=== PATIENT | male | born 1940 | race Caucasian/White ===

== ENCOUNTER 2019-09-01 14:35 | Inpatient (IN) | payer MEDICARE, MEDICAID ==
[2019-09-01] MEDS ORDERED: Sodium Chloride 0.9% 1,000 ML ONE (14:48)
[2019-09-01] MEDS ORDERED: Sodium Chloride 0.9% 10 ML Syringe FLUSH PRN (14:49)
[2019-09-01] MEDS ORDERED: Sodium Chloride 0.9% 1,000 ML IV SCH (15:00)
--- NOTE | 2019-09-01 15:17 | CR ---
Chest: Portable view of the chest was obtained. Comparison: Prior chest x-ray of 12/28/16. Heart size and mediastinum are within normal limits. Lungs show no acute parenchymal change. Bony structures are grossly intact. Impression: 1. Nothing acute is appreciated on portable chest x-ray. Diagnostic code #1 Study was dictated in MDT
[2019-09-01] MEDS ORDERED: Sodium Chloride 0.9% 1,000 ML IV ONE (16:27)
--- NOTE | 2019-09-01 16:46 | EDM.PDOC ---
ED HPI GENERAL MEDICAL PROBLEM - General Chief Complaint: Cardiovascular Problem Stated Complaint: [facility] Time Seen by Provider: 09/01/19 14:42 Source of Information: Reports: Patient History Limitations: Reports: No Limitations - History of Present Illness INITIAL COMMENTS - FREE TEXT/NARRATIVE: The patient presents by [facility] for hypotension. The patient was going to Dr Acevedo to have a wart on his right foot rechecked. They checked his blood pressure and it was low in the 60s systolic. EMS started an IV and gave him some fluid. He says he has not been feeling good the past few days. He does admit to drinking daily and he has not drank any alcohol for a couple of days. He is depressed. He does not think he can take care of himself at home. He is not eating or drinking much. He denies chest pain or shortness of breath. He has no abdominal pain, nausea or vomiting. He has no dysuria. He does have a history of hypertension. He also has glaucoma and macular degeneration. He says his vision is not good today. Onset: Gradual Duration: Day(s): Severity: Moderate Improves with: Reports: None Worsens with: Reports: None Associated Symptoms: Denies: Chest Pain, Cough, Fever/Chills, Headaches, Nausea/ Vomiting, Shortness of Breath Treatments LAST IRONER: Reports: Other (see below) Right Foot Pain Score (Numeric/FACES): 9 - Related Data Allergies Allergy/AdvReac Type Severity Reaction Status Date / Time No Known Allergies Allergy Verified 01/30/16 13:17 Home Meds: Home Meds Gabapentin [Neurontin] 100 mg PO BID 09/01/19 [History] Lisinopril/Hydrochlorothiazide [Lisinopril-HCTZ 10-12.5 MG] 1 tab PO DAILY 08/31 [History] Multivitamin [Multivitamins] 1 cap PO DAILY 09/01/19 [History] Sildenafil [Viagra] 100 mg PO ASDIRECTED 09/01/19 [History] Past Medical History - Past Health History Medical/Surgical History: Denies Medical/Surgical History Cardiovascular History: Reports: None, Hypertension Psychiatric History: Reports: Anxiety, Depression, Other (See Below) Other Psychiatric History: depressed as to how he lives and can't take care of self; drinks for escape; - Past Surgical History HEENT Surgical History: Reports: Other (See Below) Social & Family History - Tobacco Use Smoking Status *Q: Current Every Day Smoker Years of Tobacco use: 50 Packs/Tins Daily: 1 - Caffeine Use Caffeine Use: Reports: Coffee, Soda - Recreational Drug Use Recreational Drug Type: Reports: Cocaine, Marijuana/Hashish, Mescaline, Other ( see below) Other Recreational Drug Type: mushrooms; has not done drugs in many many years ED ROS GENERAL - Review of Systems Review Of Systems: See Below Constitutional: Reports: Malaise, Weakness, Fatigue. Denies: Fever, Chills HEENT: Reports: No Symptoms Respiratory: Reports: No Symptoms Cardiovascular: Reports: No Symptoms Endocrine: Reports: Fatigue GI/Abdominal: Reports: Anorexia. Denies: Abdominal Pain, Nausea, Vomiting : Reports: No Symptoms Musculoskeletal: Reports: No Symptoms ED EXAM, GENERAL - Physical Exam Exam: See Below Exam Limited By: No Limitations General Appearance: Alert, No Apparent Distress Ears: Normal External Exam Nose: Normal Inspection Head: Atraumatic, Normocephalic Neck: Normal Inspection Respiratory/Chest: No Respiratory Distress, Lungs Clear, Normal Breath Sounds Cardiovascular: No Edema, No Murmur, Tachycardia, Irregularly Irregular GI/Abdominal: Soft, Non-Tender, No Organomegaly, No Mass Back Exam: Normal Inspection Extremities: Normal Inspection EKG INTERPRETATION EKG Date: 09/01/19 Time: 16:48 Rhythm: A-Fib Rate (Beats/Min): 128 [place]: Normal QRS: LBBB ST-T: Normal QT: Normal Course - Vital Signs Last Recorded V/S: Last Vital Signs Temp 96.9 F 09/01/19 14:49 Pulse 83 09/01/19 14:49 Resp 13 09/01/19 14:49 BP 81/42 L 09/01/19 14:49 Pulse Ox 97 09/01/19 14:50 - Orders/Labs/Meds Orders: Active Orders 24 hr Category Date Time Status Cardiac Monitoring [RC] . DIRECTED Care 09/01/19 14:50 Active EKG Documentation Completion [RC] STAT Care 09/01/19 14:51 Active Oxygen Therapy [RC] PRN Care 09/01/19 14:50 Active Peripheral IV Care [RC] . DIRECTED Care 09/01/19 14:50 Active DRUG SCREEN, URINE [URCHEM] Stat Lab 09/01/19 17:23 Ordered UA W/MICROSCOPIC [URIN] Stat Lab 09/01/19 17:23 Ordered Lactated Ringers [Ringers, Lactated] 1,000 ml Med 09/01/19 17:45 Active IV ASDIRECTED Sodium Chloride 0.9% [Normal Saline] 1,000 ml Med 09/01/19 15:00 Active IV .BOLUS Sodium Chloride 0.9% [Saline Flush] Med 09/01/19 14:49 Active 10 ml FLUSH ASDIRECTED PRN Peripheral IV Insertion Adult [OM.PC] Stat Oth 09/01/19 14:49 Ordered Medication Orders Sodium Chloride (Normal Saline) 1,000 mls @ 1,000 mls/hr IV .BOLUS HAILEE Last Admin: 09/01/19 14:55 Dose: 1,000 mls/hr Lactated Ringer's (Ringers, Lactated) 1,000 mls @ 150 mls/hr IV ASDIRECTED HAILEE Sodium Chloride (Saline Flush) 10 ml FLUSH ASDIRECTED PRN PRN Reason: Keep Vein Open Last Admin: 09/01/19 14:59 Dose: 10 ml Labs: Laboratory Tests 09/01/19 09/01/19 Range/Units 15:10 15:10 WBC 13.40 H (4.23-9.07) K/mm3 RBC 3.91 L (4.63-6.08) M/mm3 Hgb 14.1 D (13.7-17.5) gm/dl Hct 41.7 (40.1-51.0) % MCV 106.6 H D (79.0-92.2) fl MCH 36.1 H (25.7-32.2) pg MCHC 33.8 (32.2-35.5) g/dl RDW Std Deviation 52.5 H (35.1-43.9) fL Plt Count 124 L D (163-337) K/mm3 MPV 10.1 (9.4-12.3) fl Neut % (Auto) 39.6 (34.0-67.9) % Lymph % (Auto) 49.9 (21.8-53.1) % [place] % (Auto) 9.3 (5.3-12.2) % Eos % (Auto) 0.7 L (0.8-7.0) Baso % (Auto) 0.1 (0.1-1.2) % Neut # (Auto) 5.31 (1.78-5.38) K/mm3 Lymph # (Auto) 6.69 H (1.32-3.57) K/mm3 [place] # (Auto) 1.24 H (0.30-0.82) K/mm3 Eos # (Auto) 0.09 (0.04-0.54) K/mm3 Baso # (Auto) 0.02 (0.01-0.08) K/mm3 Manual Slide Review Abnormal smear Sodium 141 (136-145) mEq/L Potassium 3.3 L (3.5-5.1) mEq/L Chloride 100 (98-107) mEq/L Carbon Dioxide 25 (21-32) mEq/L Anion Gap 19.3 H (5-15) BUN 15 (7-18) mg/dL Creatinine 1.4 H (0.7-1.3) mg/dL Est Cr Clr Drug Dosing 43.49 mL/min Estimated GFR (MDRD) 49 (>60) mL/min BUN/Creatinine Ratio 10.7 L (14-18) Glucose 126 H (83-115) mg/dL Calcium 9.5 (8.5-10.1) mg/dL Magnesium 1.8 (1.8-2.4) mg/dl Total Bilirubin 1.1 H (0.2-1.0) mg/dL AST 122 H (15-37) U/L ALT 140 H (16-63) U/L Alkaline Phosphatase 119 H (46-116) U/L Troponin I 0.032 (0.00-0.056) ng/mL Total Protein 6.2 L (6.4-8.2) g/dl Albumin 3.3 L (3.4-5.0) g/dl Globulin 2.9 gm/dL Albumin/Globulin Ratio 1.1 (1-2) Ethyl Alcohol 0.00 (0.00) gm% Meds: Medications Generic Name Dose Route Start Last Admin Trade Name Freq PRN Reason Stop Dose Admin Sodium Chloride 1,000 mls @ 1,000 mls/hr 09/01/19 15:00 09/01/19 14:55 Normal Saline IV 1,000 mls/hr .BOLUS HAILEE Administration Lactated Ringer's 1,000 mls @ 150 mls/hr 09/01/19 17:45 Ringers, Lactated IV ASDIRECTED HAILEE Sodium Chloride 10 ml 09/01/19 14:49 09/01/19 14:59 Saline Flush FLUSH 10 ml ASDIRECTED PRN Administration Keep Vein Open Discontinued Medications Generic Name Dose Route Start Last Admin Trade Name Rachelle PRN Reason Stop Dose Admin Sodium Chloride Confirm 09/01/19 14:48 09/01/19 14:54 Normal Saline Administered 09/01/19 14:49 Not Given Dose 1,000 mls @ as directed .ROUTE .STK-MED ONE Sodium Chloride 1,000 mls @ 1,000 mls/hr 09/01/19 16:27 09/01/19 16:34 Normal Saline IV 09/01/19 17:26 1,000 mls/hr ONETIME ONE Administration - Re-Assessments/Exams Free Text/Narrative Re-Assessment/Exam: 09/01/19 16:49 I ordered an IV NS bolus, labs, EKG and a CXR. His CXR shows nothing acute. His EKG shows A-fib and LBBB. 09/01/19 16:51 His WBC was elevated at 13.4. His platelets were low at 124. His K was low at 3.3. His anion gap is elevated at 19.3. His creatinine is elevated at 1.4. His AST is elevated at 122. His ALT is elevated at 140. His alk phos is elevated at 119. His troponin is negative. His ETOH is 0. 09/01/19 17:35 I feel he needs to be admitted for dehydration, A-fib with RVR. His pressure still is not good enough to try some cardizem. I gave him another liter and that did help with the rate. I will give him LR at 150ml/hr. Departure - Departure Time of Disposition: 17:40 Disposition: Admitted As Inpatient 67 Condition: Fair Clinical Impression: Dehydration, Atrial fibrillation with RVR, Elevated liver enzymes, Renal insufficiency Referrals: PCP,None [Primary Care Provider] - Forms: ED Department Discharge Sepsis Event Note - Evaluation Sepsis Screening Result: No Definite Risk - Focused Exam Vital Signs: Vital Signs Temp Pulse Resp BP Pulse Ox Pulse Ox 09/01/19 14:50 97 09/01/19 14:49 96.9 F 83 13 81/42 L 83 L Date Exam was Performed: 09/01/19 Time Exam was Performed: 17:35 - My Orders Last 24 Hours: My Active Orders 09/01/19 14:49 Sodium Chloride 0.9% [Saline Flush] 10 ml FLUSH ASDIRECTED PRN Peripheral IV Insertion Adult [OM.PC] Stat 09/01/19 14:50 Cardiac Monitoring [RC] . DIRECTED Oxygen Therapy [RC] PRN Peripheral IV Care [RC] . DIRECTED 09/01/19 14:51 EKG Documentation Completion [RC] STAT 09/01/19 15:00 Sodium Chloride 0.9% [Normal Saline] 1,000 ml IV .BOLUS 09/01/19 17:23 DRUG SCREEN, URINE [URCHEM] Stat UA W/MICROSCOPIC [URIN] Stat 09/01/19 17:45 Lactated Ringers [Ringers, Lactated] 1,000 ml IV ASDIRECTED - Assessment/Plan Last 24 Hours: My Active Orders 09/01/19 14:49 Sodium Chloride 0.9% [Saline Flush] 10 ml FLUSH ASDIRECTED PRN Peripheral IV Insertion Adult [OM.PC] Stat 09/01/19 14:50 Cardiac Monitoring [RC] . DIRECTED Oxygen Therapy [RC] PRN Peripheral IV Care [RC] . DIRECTED 09/01/19 14:51 EKG Documentation Completion [RC] STAT 09/01/19 15:00 Sodium Chloride 0.9% [Normal Saline] 1,000 ml IV .BOLUS 09/01/19 17:23 DRUG SCREEN, URINE [URCHEM] Stat UA W/MICROSCOPIC [URIN] Stat 09/01/19 17:45 Lactated Ringers [Ringers, Lactated] 1,000 ml IV ASDIRECTED
[2019-09-01] MEDS ORDERED: Lactated Ringers 1,000 ML IV SCH (17:45)
[2019-09-01] MEDS ORDERED: LORazepam 1 MG Tab PO PRN (20:39)
[2019-09-01] MEDS ORDERED: Albuterol 0.083% 2.5 MG/3 ML Neb Soln NEB PRN (20:43)
[2019-09-01] MEDS ORDERED: Acetaminophen 325 MG Tab PO PRN (20:43)
[2019-09-01] MEDS ORDERED: Diltiazem 100 MG in Sodium Chloride 0.9% 100 ML IV SCH (20:45)
--- NOTE | 2019-09-01 20:48 | PCM.HP.2 ---
H&P History of Present Illness - General Date of Service: 09/01/19 Admit Problem/Dx: Admission Diagnosis/Problem Admission Diagnosis/Problem Atrial fibrillation - History of Present Illness Initial Comments - Free Text/Narative: 79-year-old male presented to the ED via [facility] for hypertension. Patient was being seen by Dr. landeros, podiatry, to have a wart on his right foot recheck. At the appointment his blood pressure was checked and was found to be in the low 60s systolic. Patient was brought via EMS and given fluids to the emergency room. He states that he has not been eating or drinking well over the last several days. For the last 3 nights he has not been sleeping well because his heart has been beating too fast. He states usually he drinks 4 -5 beers and then a third bottle of rum to fall asleep. He has not had anything to drink in 4 to 5 days because he could not get to the liquor store. Patient states he could not walk and kept losing his balance. 3 days ago he fell, hitting his head when taking out the trash. Last night he states he took 2 of his lisinopril with hydrochlorothiazide blood pressure medications because his heart rate was going fast and he could not sleep. He figured it would help lower his heart rate. He denies any chest pain. He has had an increase in shortness of breath for the last 2 weeks. He smokes 1 pack/day for the last 60 years. He states he has been chain smoking for the last 2 weeks. He has never been diagnosed with atrial fibrillation. He has hypertension which she takes lisinopril and hydrochlorothiazide. He is on gabapentin for some unknown reason. He has had a cough, but it is only mildly productive. He is not using any inhalers. Patient states that he is depressed because he can no longer take care of himself. In the emergency room he was found to be tachycardic in atrial fibrillation. Initially blood pressure was 81/42 which improved with 2 L of fluid. EKG showed A. fib with a ventricular rate of 128 bpm. Left bundle branch block. He was not started on Cardizem in the emergency room because of his low blood pressure. He was felt to be hypovolemic with A. fib with RVR. Chest x-ray showed no acute findings. Initial labs included a white count of 13.4, hemoglobin 14.1, MCV and MCH both elevated, platelets 124, Sodium 141, potassium 3.3, BUN 15, creatinine 1.4, anion gap 19.3, total bilirubin 1.1, AST 122, ALT 140, alkaline phosphatase 119 , troponin 0 0.032, albumin 3.3, alcohol 0 and a negative urine drug screen. Right Foot Pain Score (Numeric/FACES): 9 - Related Data Allergies/Adverse Reactions: Allergies Allergy/AdvReac Type Severity Reaction Status Date / Time No Known Allergies Allergy Verified 01/30/16 13:17 Home Medications: Home Meds Gabapentin [Neurontin] 100 mg PO BID 09/01/19 [History] Lisinopril/Hydrochlorothiazide [Lisinopril-HCTZ 10-12.5 MG] 1 tab PO DAILY 08/31 [History] Multivitamin [Multivitamins] 1 cap PO DAILY 09/01/19 [History] Sildenafil [Viagra] 100 mg PO ASDIRECTED 09/01/19 [History] Past Medical History - Past Health History Medical/Surgical History: Denies Medical/Surgical History Cardiovascular History: Reports: None, Hypertension Psychiatric History: Reports: Anxiety, Depression, Other (See Below) Other Psychiatric History: depressed as to how he lives and can't take care of self; drinks for escape; - Past Surgical History HEENT Surgical History: Reports: Other (See Below) Social & Family History - Tobacco Use Smoking Status *Q: Current Every Day Smoker Years of Tobacco use: 50 Packs/Tins Daily: 1 - Caffeine Use Caffeine Use: Reports: Coffee, Soda - Recreational Drug Use Recreational Drug Type: Reports: Cocaine, Marijuana/Hashish, Mescaline, Other ( see below) Other Recreational Drug Type: mushrooms; has not done drugs in many many years H&P Review of Systems - Review of Systems: Review Of Systems: Comprehensive ROS is negative, except as noted in HPI. Exam - Exam Exam: See Below - Vital Signs Vital Signs: Last Vital Signs Temp 98.3 F 09/01/19 19:25 Pulse 83 09/01/19 14:49 Resp 17 09/01/19 19:25 BP 100/65 09/01/19 19:25 Pulse Ox 94 L 09/01/19 19:25 Weight: 164 lb 11.2 oz - Exam General: Alert, Oriented, 4 HEENT: Conjunctiva Clear, Hearing Intact, Mucosa Moist & [place], Pupils Equal, Other (Bilateral conjunctive injected with discharge right worse than left) Neck: Supple, Trachea Midline, 2 Lungs: Normal Respiratory Effort, Rhonchi, Wheezing (Throughout both lung duarte ) Cardiovascular: Irregular Rhythm, Tachycardia. No: Systolic Murmur GI/Abdominal Exam: Normal Bowel Sounds, Soft, Non-Tender, No Organomegaly, No Distention, No Abnormal Bruit, No Mass Back Exam: Normal Inspection, Full Range of Motion, NT Extremities: Normal Inspection, Normal Range of Motion, Non-Tender, No Pedal Edema, Normal Capillary Refill Skin: Warm, Dry, Intact Neurological: Cranial Nerves Intact Neuro Extensive - Motor, Sensory, Reflexes: CN II-XII Intact Psychiatric: Alert, Normal Affect, Normal Mood - Patient Data Lab Results Last 24 hrs: Laboratory Results - last 24 hr 09/01/19 09/01/19 09/01/19 Range/Units 15:10 15:10 16:30 WBC 13.40 H (4.23-9.07) K/mm3 RBC 3.91 L (4.63-6.08) M/mm3 Hgb 14.1 D (13.7-17.5) gm/dl Hct 41.7 (40.1-51.0) % MCV 106.6 H D (79.0-92.2) fl MCH 36.1 H (25.7-32.2) pg MCHC 33.8 (32.2-35.5) g/dl RDW Std Deviation 52.5 H (35.1-43.9) fL Plt Count 124 L D (163-337) K/mm3 MPV 10.1 (9.4-12.3) fl Neut % (Auto) 39.6 (34.0-67.9) % Lymph % (Auto) 49.9 (21.8-53.1) % [place] % (Auto) 9.3 (5.3-12.2) % Eos % (Auto) 0.7 L (0.8-7.0) Baso % (Auto) 0.1 (0.1-1.2) % Neut # (Auto) 5.31 (1.78-5.38) K/mm3 Lymph # (Auto) 6.69 H (1.32-3.57) K/mm3 [place] # (Auto) 1.24 H (0.30-0.82) K/mm3 Eos # (Auto) 0.09 (0.04-0.54) K/mm3 Baso # (Auto) 0.02 (0.01-0.08) K/mm3 Manual Slide Review Abnormal smear Sodium 141 (136-145) mEq/L Potassium 3.3 L (3.5-5.1) mEq/L Chloride 100 (98-107) mEq/L Carbon Dioxide 25 (21-32) mEq/L Anion Gap 19.3 H (5-15) BUN 15 (7-18) mg/dL Creatinine 1.4 H (0.7-1.3) mg/dL Est Cr Clr Drug Dosing 43.49 mL/min Estimated GFR (MDRD) 49 (>60) mL/min BUN/Creatinine Ratio 10.7 L (14-18) Glucose 126 H (83-115) mg/dL Calcium 9.5 (8.5-10.1) mg/dL Magnesium 1.8 (1.8-2.4) mg/dl Total Bilirubin 1.1 H (0.2-1.0) mg/dL AST 122 H (15-37) U/L ALT 140 H (16-63) U/L Alkaline Phosphatase 119 H (46-116) U/L Troponin I 0.032 (0.00-0.056) ng/mL Total Protein 6.2 L (6.4-8.2) g/dl Albumin 3.3 L (3.4-5.0) g/dl Globulin 2.9 gm/dL Albumin/Globulin Ratio 1.1 (1-2) Urine Color Yellow (Yellow) Urine Appearance Clear (Clear) Urine pH 7.0 (5.0-8.0) Ur Specific [place] 1.020 (1.005-1.030) Urine Protein Negative (Negative) Urine Glucose (UA) Negative (Negative) Urine Ketones Trace H (Negative) Urine Occult Blood Negative (Negative) Urine Nitrite Negative (Negative) Urine Bilirubin 1+ H (Negative) Urine Urobilinogen 1.0 (0.2-1.0) Ur Leukocyte Esterase Negative (Negative) Urine RBC 0-5 (0-5) /hpf Urine WBC 0-5 (0-5) /hpf Ur Squamous Epith Cells 0-5 (0-5) /hpf Urine Bacteria Few (FEW) /hpf Urine Mucus Few (FEW) /hpf Urine Opiates Screen (ASBDUF=821) Ur Buprenorphine Scrn (CUTOFF=10) Ur Oxycodone Screen (KIO7NM=760) Urine Methadone Screen (FLE8WY=824) Ur Propoxyphene Screen (CKHQME=105) Ur Barbiturates Screen (OFEVKL=605) Ur Tricyclics Screen (NVYQOM=027) Ur Phencyclidine Scrn (CUTOFF=25) Ur Amphetamine Screen (IETENM=269) U Methamphetamines Scrn (JEJOGE=971) U Benzodiazepines Scrn (NXFWOD=789) U Cocaine Metab Screen (LOUPOK=176) U Marijuana (THC) Screen (CUTOFF=50) Ethyl Alcohol 0.00 (0.00) gm% 09/01/19 Range/Units 16:30 WBC (4.23-9.07) K/mm3 RBC (4.63-6.08) M/mm3 Hgb (13.7-17.5) gm/dl Hct (40.1-51.0) % MCV (79.0-92.2) fl MCH (25.7-32.2) pg MCHC (32.2-35.5) g/dl RDW Std Deviation (35.1-43.9) fL Plt Count (163-337) K/mm3 MPV (9.4-12.3) fl Neut % (Auto) (34.0-67.9) % Lymph % (Auto) (21.8-53.1) % [place] % (Auto) (5.3-12.2) % Eos % (Auto) (0.8-7.0) Baso % (Auto) (0.1-1.2) % Neut # (Auto) (1.78-5.38) K/mm3 Lymph # (Auto) (1.32-3.57) K/mm3 [place] # (Auto) (0.30-0.82) K/mm3 Eos # (Auto) (0.04-0.54) K/mm3 Baso # (Auto) (0.01-0.08) K/mm3 Manual Slide Review Sodium (136-145) mEq/L Potassium (3.5-5.1) mEq/L Chloride (98-107) mEq/L Carbon Dioxide (21-32) mEq/L Anion Gap (5-15) BUN (7-18) mg/dL Creatinine (0.7-1.3) mg/dL Est Cr Clr Drug Dosing mL/min Estimated GFR (MDRD) (>60) mL/min BUN/Creatinine Ratio (14-18) Glucose (83-115) mg/dL Calcium (8.5-10.1) mg/dL Magnesium (1.8-2.4) mg/dl Total Bilirubin (0.2-1.0) mg/dL AST (15-37) U/L ALT (16-63) U/L Alkaline Phosphatase (46-116) U/L Troponin I (0.00-0.056) ng/mL Total Protein (6.4-8.2) g/dl Albumin (3.4-5.0) g/dl Globulin gm/dL Albumin/Globulin Ratio (1-2) Urine Color (Yellow) Urine Appearance (Clear) Urine pH (5.0-8.0) Ur Specific [place] (1.005-1.030) Urine Protein (Negative) Urine Glucose (UA) (Negative) Urine Ketones (Negative) Urine Occult Blood (Negative) Urine Nitrite (Negative) Urine Bilirubin (Negative) Urine Urobilinogen (0.2-1.0) Ur Leukocyte Esterase (Negative) Urine RBC (0-5) /hpf Urine WBC (0-5) /hpf Ur Squamous Epith Cells (0-5) /hpf Urine Bacteria (FEW) /hpf Urine Mucus (FEW) /hpf Urine Opiates Screen Negative (JHKMSA=178) Ur Buprenorphine Scrn Negative (CUTOFF=10) Ur Oxycodone Screen Negative (UPQ3SO=875) Urine Methadone Screen Negative (RKH8CO=241) Ur Propoxyphene Screen Negative (IUCXFA=777) Ur Barbiturates Screen Negative (UBQDZE=555) Ur Tricyclics Screen Negative (VJXLNY=984) Ur Phencyclidine Scrn Negative (CUTOFF=25) Ur Amphetamine Screen Negative (YUNWOO=695) U Methamphetamines Scrn Negative (GPKBJO=323) U Benzodiazepines Scrn Negative (UHAGQN=268) U Cocaine Metab Screen Negative (VOSJUX=874) U Marijuana (THC) Screen Negative (CUTOFF=50) Ethyl Alcohol (0.00) gm% Result Diagrams: 09/01/19 15:10 09/01/19 15:10 Sepsis Event Note - Evaluation Sepsis Screening Result: No Definite Risk - Focused Exam Vital Signs: Vital Signs Temp Pulse Resp BP BP Pulse Ox Pulse Ox 09/01/19 19:25 98.3 F 17 100/65 94 L 09/01/19 14:50 97 09/01/19 14:49 96.9 F 83 13 81/42 L 83 L Date Exam was Performed: 09/01/19 Time Exam was Performed: 21:16 Problem List Initiated/Reviewed/Updated: Yes Orders Last 24hrs: Active Orders 24 hr Category Date Time Status Admission Status [Patient Status] [ADT] Routine ADT 09/01/19 19:10 Active CIWAA Assessment [RC] Q4H Care 09/01/19 20:39 Ordered Cardiac Monitoring [RC] . DIRECTED Care 09/01/19 14:50 Active Oxygen Therapy [RC] PRN Care 09/01/19 14:50 Active Oxygen Therapy [RC] PRN Care 09/01/19 20:43 Ordered Peripheral IV Care [RC] . DIRECTED Care 09/01/19 14:50 Active RT Aerosol Therapy [RC] ASDIRECTED Care 09/01/19 20:45 Ordered Up With Assistance [RC] ASDIRECTED Care 09/01/19 20:43 Ordered VTE/DVT Education [RC] PER UNIT ROUTINE Care 09/01/19 20:43 Ordered Vital Signs [RC] Q4H Care 09/01/19 20:43 Ordered Consult to Case Management/Microbiology Soil Scientist [CONS] Cons 09/01/19 17:47 Active Routine Heart Healthy Diet [DIET] Diet 09/02/19 Breakfast Ordered Echo Comp wo Cont [US] Routine Exams 09/02/19 Ordered CBC WITH AUTO DIFF [HEME] AM Lab 09/02/19 05:11 Ordered CBC WITH AUTO DIFF [HEME] AM Lab 09/03/19 05:11 Ordered CBC WITH AUTO DIFF [HEME] AM Lab 09/04/19 05:11 Ordered COMPREHENSIVE METABOLIC PN,CMP [CHEM] AM Lab 09/02/19 05:11 Ordered COMPREHENSIVE METABOLIC PN,CMP [CHEM] AM Lab 09/03/19 05:11 Ordered COMPREHENSIVE METABOLIC PN,CMP [CHEM] AM Lab 09/04/19 05:11 Ordered MAGNESIUM [CHEM] AM Lab 09/02/19 05:11 Ordered MAGNESIUM [CHEM] AM Lab 09/03/19 05:11 Ordered MAGNESIUM [CHEM] AM Lab 09/04/19 05:11 Ordered Acetaminophen [Tylenol] Med 09/01/19 20:43 Ordered 650 mg PO Q4H PRN Albuterol [Proventil Neb Soln] Med 09/01/19 20:43 Ordered 2.5 mg NEB Q2H PRN Albuterol/Ipratropium [DuoNeb 3.0-0.5 MG/3 ML] Med 09/01/19 20:45 Ordered 3 ml NEB Q6H Apixaban [Eliquis] Med 09/01/19 21:00 Ordered 5 mg PO BID Diltiazem 125 MG in Normal Saline @ 5 MG/HR(100ml) Med 09/01/19 20:45 Ordered Diltiazem 125 mg Sodium Chloride 0.9% [Normal Saline] 100 ml IV TITRATE Folic Acid Med 09/01/19 21:00 Ordered 1 mg PO BEDTIME LORazepam [Ativan] Med 09/01/19 21:00 Active 1 mg PO BEDTIME LORazepam [Ativan] Med 09/01/19 20:39 Ordered See Protocol PO Q1H PRN Lactated Ringers [Ringers, Lactated] 1,000 ml Med 09/01/19 17:45 Active IV ASDIRECTED Nicotine [Habitrol] Med 09/01/19 20:15 Active 21 mg TRDERM DAILY Polymyxin B/Trimethoprim [PolyTrim Ophth Soln] Med 09/01/19 20:15 Active 0 ml EYEBOTH Q4HWA Remove Patch Med 09/02/19 09:00 Active 1 ea TRDERM DAILY Sodium Chloride 0.9% [Saline Flush] Med 09/01/19 14:49 Active 10 ml FLUSH ASDIRECTED PRN Thiamine [Vitamin B-1] Med 09/01/19 21:00 Ordered 100 mg IVPUSH DAILY Peripheral IV Insertion Adult [OM.PC] Stat Oth 09/01/19 14:49 Ordered Resuscitation Status Routine Resus Stat 09/01/19 20:43 Ordered Medication Orders Acetaminophen (Tylenol) 650 mg PO Q4H PRN PRN Reason: Pain (Mild 1-3)/fever Albuterol (Proventil Neb Soln) 2.5 mg NEB Q2H PRN PRN Reason: Shortness Of Breath/wheezing Albuterol/Ipratropium (Duoneb 3.0-0.5 Mg/3 Ml) 3 ml NEB Q6H HAILEE Apixaban (Eliquis) 5 mg PO BID HAILEE Folic Acid (Folic Acid) 1 mg PO BEDTIME HAILEE Lactated Ringer's (Ringers, Lactated) 1,000 mls @ 150 mls/hr IV ASDIRECTED HAILEE Last Admin: 09/01/19 17:43 Dose: 150 mls/hr Diltiazem HCl 100 mg/ Sodium (Chloride) 100 mls @ 5 mls/hr IV TITRATE HAILEE; Protocol Lorazepam (Ativan) 1 mg PO BEDTIME HAILEE Lorazepam (Ativan) 1 - 3 mg PO Q1H PRN; Protocol PRN Reason: Withdrawal Symptoms Miscellaneous Information (Remove Patch) 1 ea TRDERM DAILY HAILEE Nicotine (Habitrol) 21 mg TRDERM DAILY HAILEE Polymyxin/Trimethoprim Sulfate (Polytrim Ophth Soln) 0 ml EYEBOTH Q4HWA HAILEE Sodium Chloride (Saline Flush) 10 ml FLUSH ASDIRECTED PRN PRN Reason: Keep Vein Open Last Admin: 09/01/19 14:59 Dose: 10 ml Thiamine HCl (Vitamin B-1) 100 mg IVPUSH DAILY HAILEE Assessment/Plan Comment:: Assessment 79-year-old male with alcoholism admitted with atrial fibrillation and RVR. * Presenting heart rate in the 120s to 130s. * Significantly hypovolemic secondary to poor p.o. intake. Blood pressure improved with fluids Alcoholism * Drinks 4-5 beers and 1/3 bottle of rum daily * Last drink 4 to 5 days ago * Patient complained of difficulty sleeping, likely secondary to alcoholism [id number] history * Likely COPD with possible exacerbation * Lung sounds significant for diffuse rhonchi and wheezes * Oxygen saturation 97% on room air * Normal chest x-ray Bilateral conjunctivitis, right eye worse than left History of hypertension * Home meds include lisinopril and hydrochlorothiazide Unsteady gait * Likely neuropathy exacerbating secondary to his alcoholism Plan * Admit to ICU * Cardizem drip * Eliquis 5 mg twice daily * Continue rehydration * CIWAA protocol with Ativan * Ativan 1 mg p.o. nightly * Albuterol/ipratropium bromide nebulizer every 6 hours * Albuterol every 2 hours as needed * Augmentin twice daily * Thiamine 100 mg IV daily switch to p.o. in 2 days * Folic acid 1 mg at bedtime * Polytrim 1 drop each eye every 4 hours while awake * Echocardiogram * Consult PT * CODE STATUS: Full code * VTE prophylaxis with Eliquis * Prognosis good * Consult case management for likely placement - Mortality Measure Prognosis:: Good
[2019-09-01] MEDS ORDERED: LORazepam 1 MG Tab PO SCH (21:00)
[2019-09-01] MEDS: Albuterol/Ipratropium 3.0-0.5 MG/3 ML Neb Soln NEB SCH (21:13)
[2019-09-01] MEDS: Apixaban 5 MG Tab PO SCH (21:56)
[2019-09-01] MEDS: Folic Acid 1 MG Tab PO SCH (21:56)
[2019-09-01] MEDS: Thiamine 200 MG/2 ML MDV IVPUSH SCH (21:57)
[2019-09-01] MEDS: Nicotine 21 MG/24 Hr Patch TRDERM SCH (21:57)
[2019-09-01] MEDS: Polymyxin B/Trimethoprim 10 ML Bottle EYEBOTH SCH ×2 (21:57→22:00)
[2019-09-01] MEDS: Amoxicillin/Clavulanate K 875-125 MG Tab PO SCH (22:02)
[2019-09-01] MEDS: Potassium Chloride 10 MEQ in Premix Bag 1 BAG IV SCH (23:25)
[2019-09-02] MEDS: Potassium Chloride 10 MEQ in Premix Bag 1 BAG IV SCH ×3 (00:25→02:25)
[2019-09-02] MEDS: Lactated Ringers 1,000 ML IV SCH ×2 (00:26→10:10)
[2019-09-02] MEDS: Albuterol/Ipratropium 3.0-0.5 MG/3 ML Neb Soln NEB SCH ×4 (02:22→20:14)
[2019-09-02] MEDS: Polymyxin B/Trimethoprim 10 ML Bottle EYEBOTH SCH ×5 (07:10→22:32)
[2019-09-02] MEDS: Thiamine 200 MG/2 ML MDV IVPUSH SCH (09:58)
[2019-09-02] MEDS: Amoxicillin/Clavulanate K 875-125 MG Tab PO SCH ×2 (10:00→19:59)
[2019-09-02] MEDS: Potassium Chloride 20 MEQ Tab.ER PO SCH ×2 (10:01→19:59)
[2019-09-02] MEDS: Apixaban 5 MG Tab PO SCH ×2 (10:01→20:00)
[2019-09-02] MEDS: Nicotine 21 MG/24 Hr Patch TRDERM SCH (10:01)
[2019-09-02] MEDS ORDERED: Pantoprazole 40 MG in Sodium Chloride 0.9% 100 ML IV SCH (11:45)
[2019-09-02] MEDS: Pantoprazole 40 MG Vial IVPUSH SCH (12:07)
--- NOTE | 2019-09-02 14:21 | PCM.PN ---
- General Info Date of Service: 09/02/19 Admission Dx/Problem (Free Text): Admission Diagnosis/Problem Admission Diagnosis/Problem Atrial fibrillation Subjective Update: Patient converted to sinus rhythm overnight. He slept mediocre and is requesting something else to help him sleep. - Review of Systems General: Reports: Fatigue HEENT: Reports: No Symptoms Pulmonary: Reports: Cough Cardiovascular: Reports: No Symptoms Gastrointestinal: Reports: No Symptoms Neurological: Reports: No Symptoms - Patient Data Vitals - Most Recent: Last Vital Signs Temp 98.1 F 09/02/19 11:00 Pulse 63 09/02/19 08:00 Resp 15 09/02/19 11:00 BP 112/47 L 09/02/19 12:11 Pulse Ox 98 09/02/19 13:59 Weight - Most Recent: 165 lb I&O - Last 24 Hours: Intake & Output 09/01/19 09/02/19 09/02/19 22:59 06:59 14:59 Intake Total 4158 120 Output Total 300 450 Balance -300 3708 120 Lab Results Last 24 Hours: Laboratory Results - last 24 hr 09/01/19 09/01/19 09/01/19 Range/Units 15:10 15:10 16:30 WBC 13.40 H (4.23-9.07) K/mm3 RBC 3.91 L (4.63-6.08) M/mm3 Hgb 14.1 D (13.7-17.5) gm/dl Hct 41.7 (40.1-51.0) % MCV 106.6 H D (79.0-92.2) fl MCH 36.1 H (25.7-32.2) pg MCHC 33.8 (32.2-35.5) g/dl RDW Std Deviation 52.5 H (35.1-43.9) fL Plt Count 124 L D (163-337) K/mm3 MPV 10.1 (9.4-12.3) fl Neut % (Auto) 39.6 (34.0-67.9) % Lymph % (Auto) 49.9 (21.8-53.1) % [place] % (Auto) 9.3 (5.3-12.2) % Eos % (Auto) 0.7 L (0.8-7.0) Baso % (Auto) 0.1 (0.1-1.2) % Neut # (Auto) 5.31 (1.78-5.38) K/mm3 Lymph # (Auto) 6.69 H (1.32-3.57) K/mm3 [place] # (Auto) 1.24 H (0.30-0.82) K/mm3 Eos # (Auto) 0.09 (0.04-0.54) K/mm3 Baso # (Auto) 0.02 (0.01-0.08) K/mm3 Manual Slide Review Abnormal smear Sodium 141 (136-145) mEq/L Potassium 3.3 L (3.5-5.1) mEq/L Chloride 100 (98-107) mEq/L Carbon Dioxide 25 (21-32) mEq/L Anion Gap 19.3 H (5-15) BUN 15 (7-18) mg/dL Creatinine 1.4 H (0.7-1.3) mg/dL Est Cr Clr Drug Dosing 43.49 mL/min Estimated GFR (MDRD) 49 (>60) mL/min BUN/Creatinine Ratio 10.7 L (14-18) Glucose 126 H (83-115) mg/dL Calcium 9.5 (8.5-10.1) mg/dL Magnesium 1.8 (1.8-2.4) mg/dl Iron (65-175) ug/dL TIBC (100-400) ug/dL % Saturation (20-55) % Transferrin (202-364) mg/dL Ferritin (26-388) ng/ml Total Bilirubin 1.1 H (0.2-1.0) mg/dL AST 122 H (15-37) U/L ALT 140 H (16-63) U/L Alkaline Phosphatase 119 H (46-116) U/L Troponin I 0.032 (0.00-0.056) ng/mL Total Protein 6.2 L (6.4-8.2) g/dl Albumin 3.3 L (3.4-5.0) g/dl Globulin 2.9 gm/dL Albumin/Globulin Ratio 1.1 (1-2) Vitamin B12 (193-986) pg/ml Urine Color Yellow (Yellow) Urine Appearance Clear (Clear) Urine pH 7.0 (5.0-8.0) Ur Specific [place] 1.020 (1.005-1.030) Urine Protein Negative (Negative) Urine Glucose (UA) Negative (Negative) Urine Ketones Trace H (Negative) Urine Occult Blood Negative (Negative) Urine Nitrite Negative (Negative) Urine Bilirubin 1+ H (Negative) Urine Urobilinogen 1.0 (0.2-1.0) Ur Leukocyte Esterase Negative (Negative) Urine RBC 0-5 (0-5) /hpf Urine WBC 0-5 (0-5) /hpf Ur Squamous Epith Cells 0-5 (0-5) /hpf Urine Bacteria Few (FEW) /hpf Urine Mucus Few (FEW) /hpf Urine Opiates Screen (PVTNBW=836) Ur Buprenorphine Scrn (CUTOFF=10) Ur Oxycodone Screen (JFJ5MT=382) Urine Methadone Screen (VCK8KR=885) Ur Propoxyphene Screen (CIUHIU=783) Ur Barbiturates Screen (RHFOLA=514) Ur Tricyclics Screen (RMNKPM=833) Ur Phencyclidine Scrn (CUTOFF=25) Ur Amphetamine Screen (USWNYG=698) U Methamphetamines Scrn (SRRCZU=539) U Benzodiazepines Scrn (STYOJL=960) U Cocaine Metab Screen (QIZMZE=817) U Marijuana (THC) Screen (CUTOFF=50) Ethyl Alcohol 0.00 (0.00) gm% Hepatitis C Antibody (NEGATIVE) 09/01/19 09/02/19 09/02/19 Range/Units 16:30 05:00 05:00 WBC 13.23 H (4.23-9.07) K/mm3 RBC 3.30 L (4.63-6.08) M/mm3 Hgb 11.8 L D (13.7-17.5) gm/dl Hct 35.7 L (40.1-51.0) % MCV 108.2 H (79.0-92.2) fl MCH 35.8 H (25.7-32.2) pg MCHC 33.1 (32.2-35.5) g/dl RDW Std Deviation 52.8 H (35.1-43.9) fL Plt Count 122 L (163-337) K/mm3 MPV 10.9 (9.4-12.3) fl Neut % (Auto) 37.6 (34.0-67.9) % Lymph % (Auto) 50.6 (21.8-53.1) % [place] % (Auto) 10.5 (5.3-12.2) % Eos % (Auto) 0.7 L (0.8-7.0) Baso % (Auto) 0.2 (0.1-1.2) % Neut # (Auto) 4.98 (1.78-5.38) K/mm3 Lymph # (Auto) 6.70 H (1.32-3.57) K/mm3 [place] # (Auto) 1.39 H (0.30-0.82) K/mm3 Eos # (Auto) 0.09 (0.04-0.54) K/mm3 Baso # (Auto) 0.02 (0.01-0.08) K/mm3 Manual Slide Review Abnormal smear Sodium 141 (136-145) mEq/L Potassium 3.2 L (3.5-5.1) mEq/L Chloride 105 (98-107) mEq/L Carbon Dioxide 24 (21-32) mEq/L Anion Gap 15.2 H (5-15) BUN 10 (7-18) mg/dL Creatinine 1.0 (0.7-1.3) mg/dL Est Cr Clr Drug Dosing 60.88 mL/min Estimated GFR (MDRD) > 60 (>60) mL/min BUN/Creatinine Ratio 10.0 L (14-18) Glucose 96 (83-115) mg/dL Calcium 8.3 L (8.5-10.1) mg/dL Magnesium 1.6 L (1.8-2.4) mg/dl Iron (65-175) ug/dL TIBC (100-400) ug/dL % Saturation (20-55) % Transferrin (202-364) mg/dL Ferritin (26-388) ng/ml Total Bilirubin 0.8 (0.2-1.0) mg/dL AST 86 H (15-37) U/L ALT 108 H (16-63) U/L Alkaline Phosphatase 88 (46-116) U/L Troponin I (0.00-0.056) ng/mL Total Protein 4.9 L (6.4-8.2) g/dl Albumin 2.6 L (3.4-5.0) g/dl Globulin 2.3 gm/dL Albumin/Globulin Ratio 1.1 (1-2) Vitamin B12 (193-986) pg/ml Urine Color (Yellow) Urine Appearance (Clear) Urine pH (5.0-8.0) Ur Specific [place] (1.005-1.030) Urine Protein (Negative) Urine Glucose (UA) (Negative) Urine Ketones (Negative) Urine Occult Blood (Negative) Urine Nitrite (Negative) Urine Bilirubin (Negative) Urine Urobilinogen (0.2-1.0) Ur Leukocyte Esterase (Negative) Urine RBC (0-5) /hpf Urine WBC (0-5) /hpf Ur Squamous Epith Cells (0-5) /hpf Urine Bacteria (FEW) /hpf Urine Mucus (FEW) /hpf Urine Opiates Screen Negative (JRBFVQ=406) Ur Buprenorphine Scrn Negative (CUTOFF=10) Ur Oxycodone Screen Negative (NXM4QK=367) Urine Methadone Screen Negative (OAV8NS=357) Ur Propoxyphene Screen Negative (FCYYOW=459) Ur Barbiturates Screen Negative (QKXNEL=581) Ur Tricyclics Screen Negative (LKOLHO=109) Ur Phencyclidine Scrn Negative (CUTOFF=25) Ur Amphetamine Screen Negative (JGMSCM=969) U Methamphetamines Scrn Negative (MQLNHD=813) U Benzodiazepines Scrn Negative (HBQJNQ=284) U Cocaine Metab Screen Negative (STWAZE=005) U Marijuana (THC) Screen Negative (CUTOFF=50) Ethyl Alcohol (0.00) gm% Hepatitis C Antibody (NEGATIVE) 09/02/19 09/02/19 Range/Units 05:00 05:00 WBC (4.23-9.07) K/mm3 RBC (4.63-6.08) M/mm3 Hgb (13.7-17.5) gm/dl Hct (40.1-51.0) % MCV (79.0-92.2) fl MCH (25.7-32.2) pg MCHC (32.2-35.5) g/dl RDW Std Deviation (35.1-43.9) fL Plt Count (163-337) K/mm3 MPV (9.4-12.3) fl Neut % (Auto) (34.0-67.9) % Lymph % (Auto) (21.8-53.1) % [place] % (Auto) (5.3-12.2) % Eos % (Auto) (0.8-7.0) Baso % (Auto) (0.1-1.2) % Neut # (Auto) (1.78-5.38) K/mm3 Lymph # (Auto) (1.32-3.57) K/mm3 [place] # (Auto) (0.30-0.82) K/mm3 Eos # (Auto) (0.04-0.54) K/mm3 Baso # (Auto) (0.01-0.08) K/mm3 Manual Slide Review Sodium (136-145) mEq/L Potassium (3.5-5.1) mEq/L Chloride (98-107) mEq/L Carbon Dioxide (21-32) mEq/L Anion Gap (5-15) BUN (7-18) mg/dL Creatinine (0.7-1.3) mg/dL Est Cr Clr Drug Dosing mL/min Estimated GFR (MDRD) (>60) mL/min BUN/Creatinine Ratio (14-18) Glucose (83-115) mg/dL Calcium (8.5-10.1) mg/dL Magnesium (1.8-2.4) mg/dl Iron 52 L (65-175) ug/dL TIBC 149 (100-400) ug/dL % Saturation 35 (20-55) % Transferrin 119 L (202-364) mg/dL Ferritin 889 H (26-388) ng/ml Total Bilirubin (0.2-1.0) mg/dL AST (15-37) U/L ALT (16-63) U/L Alkaline Phosphatase (46-116) U/L Troponin I (0.00-0.056) ng/mL Total Protein (6.4-8.2) g/dl Albumin (3.4-5.0) g/dl Globulin gm/dL Albumin/Globulin Ratio (1-2) Vitamin B12 1190 H (193-986) pg/ml Urine Color (Yellow) Urine Appearance (Clear) Urine pH (5.0-8.0) Ur Specific [place] (1.005-1.030) Urine Protein (Negative) Urine Glucose (UA) (Negative) Urine Ketones (Negative) Urine Occult Blood (Negative) Urine Nitrite (Negative) Urine Bilirubin (Negative) Urine Urobilinogen (0.2-1.0) Ur Leukocyte Esterase (Negative) Urine RBC (0-5) /hpf Urine WBC (0-5) /hpf Ur Squamous Epith Cells (0-5) /hpf Urine Bacteria (FEW) /hpf Urine Mucus (FEW) /hpf Urine Opiates Screen (XAFMRF=344) Ur Buprenorphine Scrn (CUTOFF=10) Ur Oxycodone Screen (IME4YA=582) Urine Methadone Screen (BZQ0MD=827) Ur Propoxyphene Screen (YAAYAT=220) Ur Barbiturates Screen (WZUXAZ=341) Ur Tricyclics Screen (OWXRMA=235) Ur Phencyclidine Scrn (CUTOFF=25) Ur Amphetamine Screen (LPEEOY=187) U Methamphetamines Scrn (FZEQCT=625) U Benzodiazepines Scrn (CKGZRG=737) U Cocaine Metab Screen (RNKEER=086) U Marijuana (THC) Screen (CUTOFF=50) Ethyl Alcohol (0.00) gm% Hepatitis C Antibody Negative (NEGATIVE) Med Orders - Current: Current Medications Acetaminophen (Tylenol) 650 mg PO Q4H PRN PRN Reason: Pain (Mild 1-3)/fever Albuterol (Proventil Neb Soln) 2.5 mg NEB Q2H PRN PRN Reason: Shortness Of Breath/wheezing Albuterol/Ipratropium (Duoneb 3.0-0.5 Mg/3 Ml) 3 ml NEB Q6H [facility] Last Admin: 09/02/19 13:59 Dose: 3 ml Amoxicillin/Clavulanate Potassium (Augmentin 875 Mg/125 Mg) 1 tab PO Q12HR [facility] Last Admin: 09/02/19 10:00 Dose: 1 tab Apixaban (Eliquis) 5 mg PO BID [facility] Last Admin: 09/02/19 10:01 Dose: 5 mg Folic Acid (Folic Acid) 1 mg PO BEDTIME [facility] Last Admin: 09/01/19 21:56 Dose: 1 mg Lorazepam (Ativan) 1 - 3 mg PO Q1H PRN; Protocol PRN Reason: Withdrawal Symptoms Miscellaneous Information (Remove Patch) 1 ea TRDERM DAILY [facility] Last Admin: 09/02/19 10:02 Dose: Not Given Nicotine (Habitrol) 21 mg TRDERM DAILY [facility] Last Admin: 09/02/19 10:01 Dose: 21 mg Pantoprazole Sodium (Protonix) 40 mg PO BIDAC [facility] Pantoprazole Sodium (Protonix Iv) 40 mg IVPUSH Q12H [facility] Stop: 09/03/19 00:01 Last Admin: 09/02/19 12:07 Dose: 40 mg Polymyxin/Trimethoprim Sulfate (Polytrim Ophth Soln) 0 ml EYEBOTH Q4HWA [facility] Last Admin: 09/02/19 10:05 Dose: 1 drop Potassium Chloride (Klor-Con M20) 40 meq PO BID [facility] Stop: 09/02/19 21:01 Last Admin: 09/02/19 10:01 Dose: 40 meq Sodium Chloride (Saline Flush) 10 ml FLUSH ASDIRECTED PRN PRN Reason: Keep Vein Open Last Admin: 09/01/19 14:59 Dose: 10 ml Temazepam (Restoril) 15 mg PO BEDTIME [facility] Thiamine HCl (Vitamin B-1) 100 mg IVPUSH DAILY [facility] Last Admin: 09/02/19 09:58 Dose: 100 mg Discontinued Medications Sodium Chloride (Normal Saline) Confirm Administered Dose 1,000 mls @ as directed .ROUTE .STK-MED ONE Stop: 09/01/19 14:49 Last Admin: 09/01/19 14:54 Dose: Not Given Sodium Chloride (Normal Saline) 1,000 mls @ 1,000 mls/hr IV .BOLUS [facility] Last Admin: 09/01/19 14:55 Dose: 1,000 mls/hr Sodium Chloride (Normal Saline) 1,000 mls @ 1,000 mls/hr IV ONETIME ONE Stop: 09/01/19 17:26 Last Admin: 09/01/19 16:34 Dose: 1,000 mls/hr Lactated Ringer's (Ringers, Lactated) 1,000 mls @ 150 mls/hr IV ASDIRECTED [facility] Last Admin: 09/01/19 17:43 Dose: 150 mls/hr Diltiazem HCl 100 mg/ Sodium (Chloride) 100 mls @ 5 mls/hr IV TITRATE [facility]; Protocol Last Titration: 09/02/19 01:28 Dose: 2.5 mg/hr, 2.5 mls/hr Lactated Ringer's (Ringers, Lactated) 1,000 mls @ 100 mls/hr IV ASDIRECTED [facility] Last Admin: 09/02/19 10:10 Dose: 100 mls/hr Potassium Chloride 10 meq/ (Premix) 100 mls @ 100 mls/hr IV Q1H [facility] Stop: 09/02/19 03:29 Last Admin: 09/02/19 02:25 Dose: 100 mls/hr Pantoprazole Sodium 40 mg/ (Sodium Chloride) 100 mls @ 200 mls/hr IV Q12H [facility] Stop: 09/03/19 00:14 Lorazepam (Ativan) 1 mg PO BEDTIME [facility] Last Admin: 09/01/19 21:56 Dose: 1 mg - Exam General: Alert, Oriented HEENT: Pupils Equal, Mucous Membr. Moist/[place]mer Neck: Supple, Trachea Midline Lungs: Normal Respiratory Effort, Crackles (Bibasilar) Cardiovascular: Regular Rate, Regular Rhythm GI/Abdominal Exam: Normal Bowel Sounds, Soft, Non-Tender, No Organomegaly, No Distention, No Abnormal Bruit, No Mass Back Exam: Normal Inspection Extremities: Normal Inspection, Normal Range of Motion, Non-Tender, No Pedal Edema, Normal Capillary Refill Skin: Warm, Dry, Intact Psy/Mental Status: Alert, Normal Affect, Normal Mood Sepsis Event Note - Evaluation Sepsis Screening Result: No Definite Risk - Focused Exam Vital Signs: Vital Signs Temp Pulse Resp BP BP Pulse Ox Pulse Ox 09/02/19 13:59 09/02/19 13:15 97 09/02/19 13:00 96 09/02/19 12:45 95 09/02/19 12:30 95 09/02/19 12:15 96 09/02/19 12:11 112/47 L 93 L 09/02/19 12:10 99 09/02/19 12:00 96 09/02/19 11:45 94 L 09/02/19 11:30 99 09/02/19 11:23 97 09/02/19 11:00 98.1 F 15 95 09/02/19 10:01 18 113/66 100 09/02/19 10:00 98.2 F 20 99 09/02/19 09:37 19 124/61 09/02/19 09:36 17 98 09/02/19 09:34 12 99 09/02/19 09:00 98.2 F 09/02/19 08:07 09/02/19 08:01 23 H 120/54 L 98 09/02/19 08:00 63 15 120/54 L 94 L 09/02/19 07:01 17 105/45 L 94 L 09/02/19 07:00 15 105/45 L 93 L 09/02/19 06:49 13 108/47 L 93 L 09/02/19 06:00 17 86/53 L 92 L 09/02/19 05:00 17 113/36 L 93 L 09/02/19 04:01 23 H 80/48 L 93 L 09/02/19 04:00 98 F 19 99/67 93 L 09/02/19 03:00 86/50 L 09/02/19 02:25 95 Pulse Ox 09/02/19 13:59 98 09/02/19 13:15 09/02/19 13:00 09/02/19 12:45 09/02/19 12:30 09/02/19 12:15 09/02/19 12:11 09/02/19 12:10 09/02/19 12:00 09/02/19 11:45 09/02/19 11:30 09/02/19 11:23 09/02/19 11:00 09/02/19 10:01 09/02/19 10:00 09/02/19 09:37 09/02/19 09:36 09/02/19 09:34 09/02/19 09:00 09/02/19 08:07 97 09/02/19 08:01 09/02/19 08:00 09/02/19 07:01 09/02/19 07:00 09/02/19 06:49 09/02/19 06:00 09/02/19 05:00 09/02/19 04:01 09/02/19 04:00 93 L 09/02/19 03:00 09/02/19 02:25 Date Exam was Performed: 09/02/19 Time Exam was Performed: 14:12 - Problem List Review Problem List Initiated/Reviewed/Updated: Yes - My Orders Last 24 Hours: My Active Orders 09/01/19 20:15 Nicotine [Habitrol] 21 mg TRDERM DAILY Polymyxin B/Trimethoprim [PolyTrim Ophth Soln] 0 ml EYEBOTH Q4HWA 09/01/19 20:39 CIWAA Assessment [RC] Q4HR LORazepam [Ativan] 1 - 3 mg PO Q1H PRN 09/01/19 20:43 Oxygen Therapy [RC] PRN Up With Assistance [RC] ASDIRECTED VTE/DVT Education [RC] Vital Signs [RC] Q2H Acetaminophen [Tylenol] 650 mg PO Q4H PRN Albuterol [Proventil Neb Soln] 2.5 mg NEB Q2H PRN Resuscitation Status Routine 09/01/19 20:45 RT Aerosol Therapy [RC] ASDIRECTED 09/01/19 21:00 Albuterol/Ipratropium [DuoNeb 3.0-0.5 MG/3 ML] 3 ml NEB Q6H Apixaban [Eliquis] 5 mg PO BID Folic Acid 1 mg PO BEDTIME Thiamine [Vitamin B-1] 100 mg IVPUSH DAILY 09/01/19 21:35 PT Evaluation and Treatment [CONS] Routine 09/01/19 22:00 Amoxicillin/Clavulanate K [Augmentin 875 MG/125 MG] 1 tab PO Q12HR 09/02/19 Echo Comp wo Cont [US] Routine 09/02/19 06:32 EKG 12 Lead [EKG Documentation Completion] [RC] ROUTINE 09/02/19 08:51 HEPATITIS PANEL (4) [REF] Routine 09/02/19 08:55 Abdomen Ltd [US] Routine 09/02/19 09:00 Potassium Chloride [Klor-Con M20] 40 meq PO BID Remove Patch 1 ea TRDERM DAILY 09/02/19 11:47 Admission Status [Patient Status] [ADT] Routine 09/02/19 12:00 Pantoprazole [ProTONIX IV] 40 mg IVPUSH Q12H 09/02/19 21:00 Temazepam [Restoril] 15 mg PO BEDTIME 09/02/19 Breakfast Heart Healthy Diet [DIET] 09/03/19 05:11 CBC WITH AUTO DIFF [HEME] AM COMPREHENSIVE METABOLIC PN,CMP [CHEM] AM MAGNESIUM [CHEM] AM 09/03/19 06:00 Pantoprazole [ProTONIX] 40 mg PO BIDAC 09/04/19 05:11 CBC WITH AUTO DIFF [HEME] AM COMPREHENSIVE METABOLIC PN,CMP [CHEM] AM MAGNESIUM [CHEM] AM - Plan Plan:: Assessment 79-year-old male with alcoholism admitted with atrial fibrillation and RVR. * Presenting heart rate in the 120s to 130s. * Now in sinus rhythm * Significantly hypovolemic secondary to poor p.o. intake. Blood pressure improved with fluids * Hypovolemia has resolved * Off Cardizem drip * EKG: Ventricular rate 59, left bundle branch block and sinus rhythm Alcoholism * Significant signs of withdrawal * Drinks 4-5 beers and 1/3 bottle of rum daily * Last drink 4 to 5 days ago * Patient complained of difficulty sleeping, likely secondary to alcoholism * Ativan only had marginal improvement in sleep last night. [id number] history * Likely COPD with possible exacerbation * Lung sounds significant for diffuse rhonchi and wheezes * Oxygen saturation 97% on room air * Normal chest x-ray Bilateral conjunctivitis, right eye worse than left * Started on Polytrim 1 drop each eye every 4 hours while awake History of hypertension * Home meds include lisinopril and hydrochlorothiazide -held Unsteady gait * Likely neuropathy exacerbating secondary to his alcoholism * Physical therapy consulted Macrocytic anemia * Ferritin and vitamin B12 are both elevated, likely secondary to acute phase reactant. Iron is low at 52 and percent saturation is 35% * Anemia likely secondary to alcoholism Elevated LFTs * Improved overnight Plan * Admit to ICU * Cardizem drip * Eliquis 5 mg twice daily * Continue rehydration * CIWAA protocol with Ativan * Switch to temazepam 15 mg nightly * Albuterol/ipratropium bromide nebulizer every twice daily * Albuterol every 2 hours as needed * Augmentin twice daily * Thiamine 100 mg IV daily switch to p.o. in 2 days * Folic acid 1 mg at bedtime * Polytrim 1 drop each eye every 4 hours while awake * Hepatitis C antibody is negative * Viral hepatic panel pending * Right upper quadrant abdominal ultrasound * Echocardiogram * Consult PT * CODE STATUS: Full code * VTE prophylaxis with Eliquis * Prognosis good * Consult case management for likely placement
[2019-09-02] MEDS: Temazepam 15 MG Cap PO SCH (19:59)
[2019-09-02] MEDS: Folic Acid 1 MG Tab PO SCH (20:00)
[2019-09-03] MEDS: Pantoprazole 40 MG Vial IVPUSH SCH (00:02)
[2019-09-03] MEDS: Polymyxin B/Trimethoprim 10 ML Bottle EYEBOTH SCH ×5 (05:32→23:21)
[2019-09-03] MEDS: Pantoprazole 40 MG Tab.CR PO SCH ×2 (05:32→16:52)
[2019-09-03] MEDS: Albuterol/Ipratropium 3.0-0.5 MG/3 ML Neb Soln NEB SCH (06:13)
[2019-09-03] MEDS: Thiamine 200 MG/2 ML MDV IVPUSH SCH (08:45)
[2019-09-03] MEDS: Apixaban 5 MG Tab PO SCH ×2 (08:49→20:23)
[2019-09-03] MEDS: Amoxicillin/Clavulanate K 875-125 MG Tab PO SCH ×2 (08:49→20:21)
[2019-09-03] MEDS: Nicotine 21 MG/24 Hr Patch TRDERM SCH (08:49)
[2019-09-03] MEDS ORDERED: Magnesium Sulfate/Water 4 GM in Premix Bag 1 BAG IV ONE (09:17)
[2019-09-03] MEDS: Hydrochlorothiazide 12.5 MG Cap PO SCH (09:59)
[2019-09-03] MEDS: Lisinopril 10 MG Tab PO SCH (09:59)
--- NOTE | 2019-09-03 15:05 | PCM.PN ---
- General Info Date of Service: 09/03/19 Admission Dx/Problem (Free Text): Admission Diagnosis/Problem Admission Diagnosis/Problem Atrial fibrillation Subjective Update: Patient is doing well. He is concerned about going home because he states he cannot take care of himself and he will get back to drinking. He continues to have difficulty sleeping at night. Functional Status: Reports: Pain Controlled - Review of Systems General: Reports: No Symptoms HEENT: Reports: No Symptoms Pulmonary: Reports: No Symptoms Cardiovascular: Reports: No Symptoms Gastrointestinal: Reports: No Symptoms Musculoskeletal: Reports: No Symptoms - Patient Data Vitals - Most Recent: Last Vital Signs Temp 98.5 F 09/03/19 03:35 Pulse 62 09/03/19 03:35 Resp 17 09/03/19 03:35 BP 149/58 H 09/03/19 09:59 Pulse Ox 95 09/03/19 06:17 Weight - Most Recent: 167 lb 1.6 oz I&O - Last 24 Hours: Intake & Output 09/02/19 09/03/19 09/03/19 22:59 06:59 14:59 Intake Total 1430 250 240 Output Total 500 450 30 Balance 930 -200 210 Lab Results Last 24 Hours: Laboratory Results - last 24 hr 09/03/19 09/03/19 Range/Units 04:27 04:27 WBC 11.60 H (4.23-9.07) K/mm3 RBC 3.28 L (4.63-6.08) M/mm3 Hgb 11.7 L (13.7-17.5) gm/dl Hct 35.4 L (40.1-51.0) % MCV 107.9 H (79.0-92.2) fl MCH 35.7 H (25.7-32.2) pg MCHC 33.1 (32.2-35.5) g/dl RDW Std Deviation 53.4 H (35.1-43.9) fL Plt Count 139 L (163-337) K/mm3 MPV 10.7 (9.4-12.3) fl Neut % (Auto) 27.7 L (34.0-67.9) % Lymph % (Auto) 58.9 H (21.8-53.1) % [place] % (Auto) 11.6 (5.3-12.2) % Eos % (Auto) 1.3 (0.8-7.0) Baso % (Auto) 0.2 (0.1-1.2) % Neut # (Auto) 3.23 (1.78-5.38) K/mm3 Lymph # (Auto) 6.83 H (1.32-3.57) K/mm3 [place] # (Auto) 1.34 H (0.30-0.82) K/mm3 Eos # (Auto) 0.15 (0.04-0.54) K/mm3 Baso # (Auto) 0.02 (0.01-0.08) K/mm3 Manual Slide Review Abnormal smear Sodium 144 (136-145) mEq/L Potassium 3.8 (3.5-5.1) mEq/L Chloride 110 H (98-107) mEq/L Carbon Dioxide 25 (21-32) mEq/L Anion Gap 12.8 (5-15) BUN 10 (7-18) mg/dL Creatinine 1.1 (0.7-1.3) mg/dL Est Cr Clr Drug Dosing 55.35 mL/min Estimated GFR (MDRD) > 60 (>60) mL/min BUN/Creatinine Ratio 9.1 L (14-18) Glucose 111 (83-115) mg/dL Calcium 8.7 (8.5-10.1) mg/dL Magnesium 1.5 L (1.8-2.4) mg/dl Total Bilirubin 1.0 (0.2-1.0) mg/dL AST 76 H (15-37) U/L ALT 113 H (16-63) U/L Alkaline Phosphatase 83 (46-116) U/L Total Protein 5.3 L (6.4-8.2) g/dl Albumin 2.8 L (3.4-5.0) g/dl Globulin 2.5 gm/dL Albumin/Globulin Ratio 1.1 (1-2) Med Orders - Current: Current Medications Acetaminophen (Tylenol) 650 mg PO Q4H PRN PRN Reason: Pain (Mild 1-3)/fever Albuterol (Proventil Neb Soln) 2.5 mg NEB Q2H PRN PRN Reason: Shortness Of Breath/wheezing Albuterol/Ipratropium (Duoneb 3.0-0.5 Mg/3 Ml) 3 ml NEB BIDRT [facility] Amoxicillin/Clavulanate Potassium (Augmentin 875 Mg/125 Mg) 1 tab PO Q12HR [facility] Last Admin: 09/03/19 08:49 Dose: 1 tab Apixaban (Eliquis) 5 mg PO BID [facility] Last Admin: 09/03/19 08:49 Dose: 5 mg Folic Acid (Folic Acid) 1 mg PO BEDTIME [facility] Last Admin: 09/02/19 20:00 Dose: 1 mg Hydrochlorothiazide (Hydrochlorothiazide) 12.5 mg PO DAILY [facility] Last Admin: 09/03/19 09:59 Dose: 12.5 mg Lisinopril (Prinivil) 10 mg PO DAILY [facility] Last Admin: 09/03/19 09:59 Dose: 10 mg Lorazepam (Ativan) 1 - 3 mg PO Q1H PRN; Protocol PRN Reason: Withdrawal Symptoms Miscellaneous Information (Remove Patch) 1 ea TRDERM DAILY [facility] Last Admin: 09/03/19 10:01 Dose: 1 ea Nicotine (Habitrol) 21 mg TRDERM DAILY [facility] Last Admin: 09/03/19 08:49 Dose: 21 mg Pantoprazole Sodium (Protonix) 40 mg PO BIDAC [facility] Last Admin: 09/03/19 05:32 Dose: 40 mg Polymyxin/Trimethoprim Sulfate (Polytrim Ophth Soln) 0 ml EYEBOTH Q4HWA [facility] Last Admin: 09/03/19 14:56 Dose: 1 drop Sodium Chloride (Saline Flush) 10 ml FLUSH ASDIRECTED PRN PRN Reason: Keep Vein Open Last Admin: 09/01/19 14:59 Dose: 10 ml Temazepam (Restoril) 15 mg PO BEDTIME [facility] Last Admin: 09/02/19 19:59 Dose: 15 mg Thiamine HCl (Vitamin B-1) 100 mg PO DAILY [facility] Discontinued Medications Albuterol/Ipratropium (Duoneb 3.0-0.5 Mg/3 Ml) 3 ml NEB Q6H [facility] Last Admin: 09/02/19 13:59 Dose: 3 ml Albuterol/Ipratropium (Duoneb 3.0-0.5 Mg/3 Ml) 3 ml NEB QIDRT [facility] Last Admin: 09/03/19 06:13 Dose: 3 ml Sodium Chloride (Normal Saline) Confirm Administered Dose 1,000 mls @ as directed .ROUTE .STK-MED ONE Stop: 09/01/19 14:49 Last Admin: 09/01/19 14:54 Dose: Not Given Sodium Chloride (Normal Saline) 1,000 mls @ 1,000 mls/hr IV .BOLUS [facility] Last Admin: 09/01/19 14:55 Dose: 1,000 mls/hr Sodium Chloride (Normal Saline) 1,000 mls @ 1,000 mls/hr IV ONETIME ONE Stop: 09/01/19 17:26 Last Admin: 09/01/19 16:34 Dose: 1,000 mls/hr Lactated Ringer's (Ringers, Lactated) 1,000 mls @ 150 mls/hr IV ASDIRECTED [facility] Last Admin: 09/01/19 17:43 Dose: 150 mls/hr Diltiazem HCl 100 mg/ Sodium (Chloride) 100 mls @ 5 mls/hr IV TITRATE [facility]; Protocol Last Titration: 09/02/19 01:28 Dose: 2.5 mg/hr, 2.5 mls/hr Lactated Ringer's (Ringers, Lactated) 1,000 mls @ 100 mls/hr IV ASDIRECTED [facility] Last Admin: 09/02/19 10:10 Dose: 100 mls/hr Potassium Chloride 10 meq/ (Premix) 100 mls @ 100 mls/hr IV Q1H [facility] Stop: 09/02/19 03:29 Last Admin: 09/02/19 02:25 Dose: 100 mls/hr Pantoprazole Sodium 40 mg/ (Sodium Chloride) 100 mls @ 200 mls/hr IV Q12H [facility] Stop: 09/03/19 00:14 Magnesium Sulfate 4 gm/ Premix 50 mls @ 12.5 mls/hr IV ONETIME ONE Stop: 09/03/19 13:16 Last Admin: 09/03/19 09:55 Dose: 12.5 mls/hr Lorazepam (Ativan) 1 mg PO BEDTIME [facility] Last Admin: 09/01/19 21:56 Dose: 1 mg Pantoprazole Sodium (Protonix Iv) 40 mg IVPUSH Q12H [facility] Stop: 09/03/19 00:01 Last Admin: 09/03/19 00:02 Dose: Not Given Potassium Chloride (Klor-Con M20) 40 meq PO BID [facility] Stop: 09/02/19 21:01 Last Admin: 09/02/19 19:59 Dose: 40 meq Thiamine HCl (Vitamin B-1) 100 mg IVPUSH DAILY [facility] Last Admin: 09/03/19 08:45 Dose: 100 mg - Exam General: Alert, Oriented HEENT: Pupils Equal, Mucous Membr. Moist/[place] Neck: Supple Lungs: Clear to Auscultation, Normal Respiratory Effort Cardiovascular: Regular Rate, Regular Rhythm GI/Abdominal Exam: Normal Bowel Sounds, Soft, Non-Tender, No Distention Back Exam: Normal Inspection Extremities: Normal Inspection, Normal Range of Motion, Non-Tender, No Pedal Edema, Normal Capillary Refill Skin: Warm, Dry, Intact Psy/Mental Status: Alert, Normal Affect, Normal Mood Sepsis Event Note - Evaluation Sepsis Screening Result: No Definite Risk - Focused Exam Vital Signs: Vital Signs Temp Pulse Resp BP BP Pulse Ox Pulse Ox 09/03/19 09:59 149/58 H 09/03/19 08:03 149/58 H 09/03/19 06:17 95 09/03/19 03:35 98.5 F 62 17 163/62 H 94 L 09/03/19 03:33 163/62 H Date Exam was Performed: 09/03/19 Time Exam was Performed: 14:59 - Problem List Review Problem List Initiated/Reviewed/Updated: Yes - My Orders Last 24 Hours: My Active Orders 09/02/19 21:00 Temazepam [Restoril] 15 mg PO BEDTIME 09/03/19 06:00 Pantoprazole [ProTONIX] 40 mg PO BIDAC 09/03/19 09:30 hydroCHLOROthiazide 12.5 mg PO DAILY lisinopriL [Prinivil] 10 mg PO DAILY 09/03/19 21:00 Albuterol/Ipratropium [DuoNeb 3.0-0.5 MG/3 ML] 3 ml NEB BIDRT 09/04/19 05:11 CBC WITH AUTO DIFF [HEME] AM COMPREHENSIVE METABOLIC PN,CMP [CHEM] AM MAGNESIUM [CHEM] AM 09/04/19 07:00 Abdomen Comp [US] Routine 09/04/19 08:00 Echo Comp wo Cont [US] Routine 09/04/19 09:00 Thiamine [Vitamin B-1] 100 mg PO DAILY - Plan Plan:: Assessment 79-year-old male with alcoholism admitted with atrial fibrillation and RVR. * Presenting heart rate in the 120s to 130s. * Now in sinus rhythm * Significantly hypovolemic secondary to poor p.o. intake. Blood pressure improved with fluids * Hypovolemia has resolved * Off Cardizem drip * Continues in sinus rhythm and rate controlled with heart rate in the low 60s not on a rate controlling medication * EKG: September 02, 2019: Sinus rhythm ventricular rate 59, left bundle branch block * Patient is in sinus rhythm and may not need to continue anticoagulation if he maintains sinus rhythm throughout the rest of hospitalization. Alcoholism * Significant signs of withdrawal * Drinks 4-5 beers and 1/3 bottle of rum daily * Last drink 4 to 5 days ago * Patient complained of difficulty sleeping, likely secondary to alcoholism * Ativan only had marginal improvement in sleep last night. Tobacco use: [id number] history * Likely COPD with possible exacerbation * Lung sounds significant for diffuse rhonchi and wheezes * Oxygen saturation 97% on room air * Normal chest x-ray Bilateral conjunctivitis, right eye worse than left * Started on Polytrim 1 drop each eye every 4 hours while awake Hypertension * Restart home meds include lisinopril and hydrochlorothiazide Unsteady gait * Likely neuropathy exacerbating secondary to his alcoholism * Physical therapy consulted Macrocytic anemia * Ferritin and vitamin B12 are both elevated, likely secondary to acute phase reactant. Iron is low at 52 and percent saturation is 35% * Anemia likely secondary to alcoholism and iron deficiency Elevated LFTs * Continue to improve overnight Plan * Transferred to medical surgical status on telemetry * Restart lisinopril/hydrochlorothiazide 10/12.5 mg daily * Eliquis 5 mg twice daily * Stop IV fluids * Stop CIWAA protocol * Temazepam 15 mg nightly, add melatonin 9 mg at night * Albuterol/ipratropium bromide nebulizer every twice daily * Albuterol every 2 hours as needed * Augmentin twice daily * Thiamine 100 mg p.o. * Folic acid 1 mg at bedtime * Polytrim 1 drop each eye every 4 hours while awake * Hepatitis C antibody is negative * Viral hepatic panel pending * Right upper quadrant abdominal ultrasound * Echocardiogram * Consult PT * CODE STATUS: Full code * VTE prophylaxis with Eliquis * Prognosis good * Consult case management for likely placement
[2019-09-03] MEDS: Melatonin 3 MG Tab PO PRN (20:21)
[2019-09-03] MEDS: Temazepam 15 MG Cap PO SCH (20:23)
[2019-09-03] MEDS: Folic Acid 1 MG Tab PO SCH (20:23)
[2019-09-03] MEDS ORDERED: Albuterol/Ipratropium 3.0-0.5 MG/3 ML Neb Soln NEB SCH (21:00)
[2019-09-04] MEDS: Pantoprazole 40 MG Tab.CR PO SCH (05:07)
[2019-09-04] MEDS: Polymyxin B/Trimethoprim 10 ML Bottle EYEBOTH SCH ×5 (05:07→21:58)
[2019-09-04] MEDS: Nicotine 21 MG/24 Hr Patch TRDERM SCH (09:20)
[2019-09-04] MEDS: Lisinopril 10 MG Tab PO SCH ×2 (09:20→21:57)
[2019-09-04] MEDS: Thiamine 100 MG Tab PO SCH (09:20)
[2019-09-04] MEDS: Apixaban 5 MG Tab PO SCH (09:21)
[2019-09-04] MEDS: Hydrochlorothiazide 12.5 MG Cap PO SCH (09:21)
[2019-09-04] MEDS: Amoxicillin/Clavulanate K 875-125 MG Tab PO SCH ×2 (09:21→20:27)
[2019-09-04] MEDS: Albuterol/Ipratropium 3.0-0.5 MG/3 ML Neb Soln NEB SCH ×2 (09:28→20:07)
--- NOTE | 2019-09-04 11:14 | US ---
Abdominal ultrasound: Multiple real-time images of the abdomen were obtained. Comparison: No prior abdominal imaging is available. Liver shows no focal parenchymal abnormality. Gallbladder contains no shadowing gallstones. No gallbladder wall thickening or biliary duct dilatation is seen. Aorta shows no aneurysm. Kidneys show no hydronephrosis or mass. Both kidneys have a length of 9.0 cm. Spleen size is normal. Pancreas is incompletely seen. Visualized portions of the pancreas appear within normal limits. Inferior vena cava is patent. Main portal vein shows normal hepatopedal flow. Impression: 1. No abnormality is identified on abdominal ultrasound exam. Diagnostic code #1 This report was dictated in MDT
--- NOTE | 2019-09-04 16:12 | PCM.PN ---
- General Info Date of Service: 09/04/19 Admission Dx/Problem (Free Text): Admission Diagnosis/Problem Admission Diagnosis/Problem Atrial fibrillation Subjective Update: Patient is feeling well. Still having difficulty sleeping. Appetite is good. Functional Status: Reports: Pain Controlled - Review of Systems General: Reports: Fatigue HEENT: Reports: No Symptoms Pulmonary: Reports: No Symptoms Cardiovascular: Reports: No Symptoms Gastrointestinal: Reports: No Symptoms Musculoskeletal: Reports: No Symptoms Psychiatric: Reports: No Symptoms - Patient Data Vitals - Most Recent: Last Vital Signs Temp 97.1 F 09/04/19 09:00 Pulse 62 09/04/19 04:00 Resp 16 09/04/19 09:00 BP 154/108 H 09/04/19 09:20 Pulse Ox 100 09/04/19 09:28 Weight - Most Recent: 168 lb 14.4 oz I&O - Last 24 Hours: Intake & Output 09/04/19 09/04/19 09/04/19 06:59 14:59 22:59 Intake Total 300 240 Output Total 600 100 Balance -300 140 Lab Results Last 24 Hours: Laboratory Results - last 24 hr 09/04/19 09/04/19 Range/Units 04:50 04:50 WBC 11.97 H (4.23-9.07) K/mm3 RBC 3.30 L (4.63-6.08) M/mm3 Hgb 12.0 L (13.7-17.5) gm/dl Hct 35.7 L (40.1-51.0) % MCV 108.2 H (79.0-92.2) fl MCH 36.4 H (25.7-32.2) pg MCHC 33.6 (32.2-35.5) g/dl RDW Std Deviation 52.8 H (35.1-43.9) fL Plt Count 152 L (163-337) K/mm3 MPV 10.4 (9.4-12.3) fl Neut % (Auto) 26.6 L (34.0-67.9) % Lymph % (Auto) 58.3 H (21.8-53.1) % [place] % (Auto) 13.1 H (5.3-12.2) % Eos % (Auto) 1.4 (0.8-7.0) Baso % (Auto) 0.3 (0.1-1.2) % Neut # (Auto) 3.18 (1.78-5.38) K/mm3 Lymph # (Auto) 6.98 H (1.32-3.57) K/mm3 [place] # (Auto) 1.57 H (0.30-0.82) K/mm3 Eos # (Auto) 0.17 (0.04-0.54) K/mm3 Baso # (Auto) 0.04 (0.01-0.08) K/mm3 Manual Slide Review Abnormal smear Sodium 144 (136-145) mEq/L Potassium 3.8 (3.5-5.1) mEq/L Chloride 108 H (98-107) mEq/L Carbon Dioxide 26 (21-32) mEq/L Anion Gap 13.8 (5-15) BUN 7 (7-18) mg/dL Creatinine 1.1 (0.7-1.3) mg/dL Est Cr Clr Drug Dosing 55.35 mL/min Estimated GFR (MDRD) > 60 (>60) mL/min BUN/Creatinine Ratio 6.4 L (14-18) Glucose 116 H (83-115) mg/dL Calcium 8.8 (8.5-10.1) mg/dL Magnesium 1.8 (1.8-2.4) mg/dl Total Bilirubin 0.9 (0.2-1.0) mg/dL AST 86 H (15-37) U/L ALT 127 H (16-63) U/L Alkaline Phosphatase 86 (46-116) U/L Total Protein 5.6 L (6.4-8.2) g/dl Albumin 2.8 L (3.4-5.0) g/dl Globulin 2.8 gm/dL Albumin/Globulin Ratio 1.0 (1-2) Med Orders - Current: Current Medications Acetaminophen (Tylenol) 650 mg PO Q4H PRN PRN Reason: Pain (Mild 1-3)/fever Albuterol (Proventil Neb Soln) 2.5 mg NEB Q2H PRN PRN Reason: Shortness Of Breath/wheezing Albuterol/Ipratropium (Duoneb 3.0-0.5 Mg/3 Ml) 3 ml NEB BID [facility] Last Admin: 09/04/19 09:28 Dose: 3 ml Amoxicillin/Clavulanate Potassium (Augmentin 875 Mg/125 Mg) 1 tab PO Q12HR [facility] Last Admin: 09/04/19 09:21 Dose: 1 tab Folic Acid (Folic Acid) 1 mg PO BEDTIME [facility] Last Admin: 09/03/19 20:23 Dose: 1 mg Hydrochlorothiazide (Hydrochlorothiazide) 12.5 mg PO DAILY [facility] Last Admin: 09/04/19 09:21 Dose: 12.5 mg Lisinopril (Prinivil) 10 mg PO DAILY [facility] Last Admin: 09/04/19 09:20 Dose: 10 mg Lorazepam (Ativan) 1 - 3 mg PO Q1H PRN; Protocol PRN Reason: Withdrawal Symptoms Melatonin (Melatonin) 9 mg PO BEDTIME PRN PRN Reason: Sleep Last Admin: 09/03/19 20:21 Dose: 9 mg Miscellaneous Information (Remove Patch) 1 ea TRDERM DAILY [facility] Last Admin: 09/04/19 09:21 Dose: 1 ea Nicotine (Habitrol) 21 mg TRDERM DAILY [facility] Last Admin: 09/04/19 09:20 Dose: 21 mg Polymyxin/Trimethoprim Sulfate (Polytrim Ophth Soln) 0 ml EYEBOTH Q4HWA [facility] Last Admin: 09/04/19 14:03 Dose: 1 drop Sodium Chloride (Saline Flush) 10 ml FLUSH ASDIRECTED PRN PRN Reason: Keep Vein Open Last Admin: 09/01/19 14:59 Dose: 10 ml Temazepam (Restoril) 15 mg PO BEDTIME [facility] Last Admin: 09/03/19 20:23 Dose: 15 mg Thiamine HCl (Vitamin B-1) 100 mg PO DAILY [facility] Last Admin: 09/04/19 09:20 Dose: 100 mg Discontinued Medications Albuterol/Ipratropium (Duoneb 3.0-0.5 Mg/3 Ml) 3 ml NEB Q6H [facility] Last Admin: 09/02/19 13:59 Dose: 3 ml Albuterol/Ipratropium (Duoneb 3.0-0.5 Mg/3 Ml) 3 ml NEB QIDRT [facility] Last Admin: 09/03/19 06:13 Dose: 3 ml Albuterol/Ipratropium (Duoneb 3.0-0.5 Mg/3 Ml) 3 ml NEB BIDRT [facility] Last Admin: 09/03/19 20:47 Dose: 3 ml Apixaban (Eliquis) 5 mg PO BID [facility] Last Admin: 09/04/19 09:21 Dose: 5 mg Sodium Chloride (Normal Saline) Confirm Administered Dose 1,000 mls @ as directed .ROUTE .STK-MED ONE Stop: 09/01/19 14:49 Last Admin: 09/01/19 14:54 Dose: Not Given Sodium Chloride (Normal Saline) 1,000 mls @ 1,000 mls/hr IV .BOLUS [facility] Last Admin: 09/01/19 14:55 Dose: 1,000 mls/hr Sodium Chloride (Normal Saline) 1,000 mls @ 1,000 mls/hr IV ONETIME ONE Stop: 09/01/19 17:26 Last Admin: 09/01/19 16:34 Dose: 1,000 mls/hr Lactated Ringer's (Ringers, Lactated) 1,000 mls @ 150 mls/hr IV ASDIRECTED [facility] Last Admin: 09/01/19 17:43 Dose: 150 mls/hr Diltiazem HCl 100 mg/ Sodium (Chloride) 100 mls @ 5 mls/hr IV TITRATE [facility]; Protocol Last Titration: 09/02/19 01:28 Dose: 2.5 mg/hr, 2.5 mls/hr Lactated Ringer's (Ringers, Lactated) 1,000 mls @ 100 mls/hr IV ASDIRECTED [facility] Last Admin: 09/02/19 10:10 Dose: 100 mls/hr Potassium Chloride 10 meq/ (Premix) 100 mls @ 100 mls/hr IV Q1H [facility] Stop: 09/02/19 03:29 Last Admin: 09/02/19 02:25 Dose: 100 mls/hr Pantoprazole Sodium 40 mg/ (Sodium Chloride) 100 mls @ 200 mls/hr IV Q12H [facility] Stop: 09/03/19 00:14 Magnesium Sulfate 4 gm/ Premix 50 mls @ 12.5 mls/hr IV ONETIME ONE Stop: 09/03/19 13:16 Last Admin: 09/03/19 09:55 Dose: 12.5 mls/hr Lorazepam (Ativan) 1 mg PO BEDTIME [facility] Last Admin: 09/01/19 21:56 Dose: 1 mg Pantoprazole Sodium (Protonix) 40 mg PO BIDAC [facility] Last Admin: 09/04/19 05:07 Dose: 40 mg Pantoprazole Sodium (Protonix Iv) 40 mg IVPUSH Q12H [facility] Stop: 09/03/19 00:01 Last Admin: 09/03/19 00:02 Dose: Not Given Potassium Chloride (Klor-Con M20) 40 meq PO BID [facility] Stop: 09/02/19 21:01 Last Admin: 09/02/19 19:59 Dose: 40 meq Thiamine HCl (Vitamin B-1) 100 mg IVPUSH DAILY [facility] Last Admin: 09/03/19 08:45 Dose: 100 mg - Exam General: Alert, Oriented HEENT: Pupils Equal, Mucous Membr. Moist/[place] Neck: Supple Lungs: Clear to Auscultation, Normal Respiratory Effort Cardiovascular: Regular Rate, Regular Rhythm GI/Abdominal Exam: Normal Bowel Sounds, Soft, Non-Tender, No Organomegaly, No Distention, No Abnormal Bruit, No Mass Extremities: Normal Inspection, Normal Range of Motion, Non-Tender, No Pedal Edema, Normal Capillary Refill Skin: Warm, Dry, Intact Neurological: No New Focal Deficit Psy/Mental Status: Alert, Normal Affect, Normal Mood Sepsis Event Note - Evaluation Sepsis Screening Result: No Definite Risk - Focused Exam Vital Signs: Vital Signs Temp Pulse Resp BP BP Pulse Ox Pulse Ox 09/04/19 09:28 100 09/04/19 09:20 154/108 H 09/04/19 09:00 97.1 F 16 153/73 H 97 09/04/19 04:00 97.0 F 62 18 150/100 H 95 Date Exam was Performed: 09/04/19 Time Exam was Performed: 15:58 - Problem List Review Problem List Initiated/Reviewed/Updated: Yes - My Orders Last 24 Hours: My Active Orders 09/03/19 20:00 Melatonin 9 mg PO BEDTIME PRN 09/04/19 09:00 Albuterol/Ipratropium [DuoNeb 3.0-0.5 MG/3 ML] 3 ml NEB BID Thiamine [Vitamin B-1] 100 mg PO DAILY 09/04/19 09:58 OT Evaluation and Treatment [CONS] Routine 09/04/19 10:45 Antiembolic Devices [RC] PER UNIT ROUTINE LEONARDA Hose [Antiembolic Hose] [OM.PC] Routine - Plan Plan:: Assessment 79-year-old male with alcoholism admitted with atrial fibrillation and RVR. * Presenting heart rate in the 120s to 130s. * Now in sinus rhythm * Significantly hypovolemic secondary to poor p.o. intake. Blood pressure improved with fluids * Hypovolemia has resolved * Off Cardizem drip * Continues in sinus rhythm and rate controlled with heart rate in the low 60s not on a rate controlling medication * EKG: September 02, 2019: Sinus rhythm ventricular rate 59, left bundle branch block * Patient is in sinus rhythm * Echocardiogram showed normal left ventricular ejection fraction of 50 to 55%. Pseudo-normal, grade 2, pattern of LV diastolic filling. Mid inferoseptal segment is abnormal. Normal right ventricular systolic function. Aortic valve is structurally normal and tricuspid. Mild mitral valve regurgitation. Mild tricuspid valve regurgitation. The right ventricular systolic pressure is mildly elevated at 42.3. Alcoholism * NO signs of withdrawal * Drinks 4-5 beers and 1/3 bottle of rum daily * Last drink 4 to 5 days ago * Patient complained of difficulty sleeping, likely secondary to alcoholism * Ativan only had marginal improvement in sleep last night. Tobacco use: [id number] history * Likely COPD with possible exacerbation * Lung sounds significant for diffuse rhonchi and wheezes * Oxygen saturation 97% on room air * Normal chest x-ray Bilateral conjunctivitis, right eye worse than left * Started on Polytrim 1 drop each eye every 4 hours while awake Hypertension * lisinopril and hydrochlorothiazide Unsteady gait * Likely neuropathy exacerbating secondary to his alcoholism * Physical therapy consulted Macrocytic anemia * Ferritin and vitamin B12 are both elevated, likely secondary to acute phase reactant. Iron is low at 52 and percent saturation is 35% * Anemia likely secondary to alcoholism and iron deficiency Elevated LFTs * Continue to improve overnight Plan * lisinopril/hydrochlorothiazide 10/12.5 mg daily * Stop Eliquis 5 mg twice daily. Patient likely went into a single episode of A. fib due to his alcoholism. Recommendation is to wait for another episode before continuing anticoagulation. * Stop IV fluids * Stop CIWAA protocol * Temazepam 15 mg nightly, melatonin 9 mg at night * Albuterol/ipratropium bromide nebulizer every twice daily * Albuterol every 2 hours as needed * Augmentin twice daily * Thiamine 100 mg p.o. * Folic acid 1 mg at bedtime * Polytrim 1 drop each eye every 4 hours while awake * Hepatitis C antibody is negative * Viral hepatic panel pending * Right upper quadrant abdominal ultrasound * CODE STATUS: Full code * VTE prophylaxis with Eliquis * Prognosis good * Consult case management for likely placement
[2019-09-04] MEDS: Folic Acid 1 MG Tab PO SCH (20:27)
[2019-09-04] MEDS: Melatonin 3 MG Tab PO PRN (21:57)
[2019-09-04] MEDS: Temazepam 15 MG Cap PO SCH (21:57)
[2019-09-05] MEDS: Polymyxin B/Trimethoprim 10 ML Bottle EYEBOTH SCH ×5 (06:16→21:50)
[2019-09-05] MEDS: Thiamine 100 MG Tab PO SCH (08:26)
[2019-09-05] MEDS: Lisinopril 10 MG Tab PO SCH ×2 (08:26→21:50)
[2019-09-05] MEDS: Amoxicillin/Clavulanate K 875-125 MG Tab PO SCH ×2 (08:27→20:53)
[2019-09-05] MEDS: Hydrochlorothiazide 12.5 MG Cap PO SCH (08:27)
[2019-09-05] MEDS: Nicotine 21 MG/24 Hr Patch TRDERM SCH (08:27)
[2019-09-05] MEDS: Albuterol/Ipratropium 3.0-0.5 MG/3 ML Neb Soln NEB SCH ×2 (09:12→20:20)
--- NOTE | 2019-09-05 14:26 | PCM.PN ---
- General Info Date of Service: 09/05/19 Admission Dx/Problem (Free Text): Admission Diagnosis/Problem Admission Diagnosis/Problem Atrial fibrillation Subjective Update: Patient is doing well without complications or complaint. Functional Status: Reports: Pain Controlled - Review of Systems General: Reports: No Symptoms HEENT: Reports: No Symptoms Pulmonary: Reports: No Symptoms Cardiovascular: Reports: No Symptoms Gastrointestinal: Reports: No Symptoms Musculoskeletal: Reports: No Symptoms Neurological: Reports: No Symptoms Psychiatric: Reports: No Symptoms - Patient Data Vitals - Most Recent: Last Vital Signs Temp 98.2 F 09/05/19 08:28 Pulse 56 L 09/05/19 03:43 Resp 18 09/05/19 08:28 BP 106/62 09/05/19 08:28 Pulse Ox 97 09/05/19 08:28 Weight - Most Recent: 167 lb 8 oz I&O - Last 24 Hours: Intake & Output 09/04/19 09/05/19 09/05/19 22:59 06:59 14:59 Intake Total 640 340 Output Total 875 475 150 Balance -235 -475 190 Lab Results Last 24 Hours: Laboratory Results - last 24 hr 09/02/19 Range/Units 13:58 Hepatitis A IgM Ab Negative (Negative) Hep Bs Antigen Negative (Negative) Hep B Core IgM Ab Negative (Negative) Hepatitis C Antibody <0.1 (0.0-0.9) s/co ratio Med Orders - Current: Current Medications Acetaminophen (Tylenol) 650 mg PO Q4H PRN PRN Reason: Pain (Mild 1-3)/fever Albuterol (Proventil Neb Soln) 2.5 mg NEB Q2H PRN PRN Reason: Shortness Of Breath/wheezing Albuterol/Ipratropium (Duoneb 3.0-0.5 Mg/3 Ml) 3 ml NEB BID [facility] Last Admin: 09/05/19 09:12 Dose: Not Given Amoxicillin/Clavulanate Potassium (Augmentin 875 Mg/125 Mg) 1 tab PO Q12HR [facility] Last Admin: 09/05/19 08:27 Dose: 1 tab Folic Acid (Folic Acid) 1 mg PO BEDTIME [facility] Last Admin: 09/04/19 20:27 Dose: 1 mg Hydrochlorothiazide (Hydrochlorothiazide) 12.5 mg PO DAILY [facility] Last Admin: 09/05/19 08:27 Dose: 12.5 mg Lisinopril (Prinivil) 10 mg PO BID [facility] Last Admin: 09/05/19 08:26 Dose: 10 mg Lorazepam (Ativan) 1 - 3 mg PO Q1H PRN; Protocol PRN Reason: Withdrawal Symptoms Melatonin (Melatonin) 9 mg PO BEDTIME PRN PRN Reason: Sleep Last Admin: 09/04/19 21:57 Dose: 9 mg Miscellaneous Information (Remove Patch) 1 ea TRDERM DAILY [facility] Last Admin: 09/05/19 08:27 Dose: 1 ea Nicotine (Habitrol) 21 mg TRDERM DAILY [facility] Last Admin: 09/05/19 08:27 Dose: 21 mg Polymyxin/Trimethoprim Sulfate (Polytrim Ophth Soln) 0 ml EYEBOTH Q4HWA [facility] Last Admin: 09/05/19 09:00 Dose: 1 drop Sodium Chloride (Saline Flush) 10 ml FLUSH ASDIRECTED PRN PRN Reason: Keep Vein Open Last Admin: 09/01/19 14:59 Dose: 10 ml Temazepam (Restoril) 15 mg PO BEDTIME [facility] Last Admin: 09/04/19 21:57 Dose: 15 mg Thiamine HCl (Vitamin B-1) 100 mg PO DAILY [facility] Last Admin: 09/05/19 08:26 Dose: 100 mg Discontinued Medications Albuterol/Ipratropium (Duoneb 3.0-0.5 Mg/3 Ml) 3 ml NEB Q6H [facility] Last Admin: 09/02/19 13:59 Dose: 3 ml Albuterol/Ipratropium (Duoneb 3.0-0.5 Mg/3 Ml) 3 ml NEB QIDRT [facility] Last Admin: 09/03/19 06:13 Dose: 3 ml Albuterol/Ipratropium (Duoneb 3.0-0.5 Mg/3 Ml) 3 ml NEB BIDRT [facility] Last Admin: 09/03/19 20:47 Dose: 3 ml Apixaban (Eliquis) 5 mg PO BID [facility] Last Admin: 09/04/19 09:21 Dose: 5 mg Sodium Chloride (Normal Saline) Confirm Administered Dose 1,000 mls @ as directed .ROUTE .STK-MED ONE Stop: 09/01/19 14:49 Last Admin: 09/01/19 14:54 Dose: Not Given Sodium Chloride (Normal Saline) 1,000 mls @ 1,000 mls/hr IV .BOLUS [facility] Last Admin: 09/01/19 14:55 Dose: 1,000 mls/hr Sodium Chloride (Normal Saline) 1,000 mls @ 1,000 mls/hr IV ONETIME ONE Stop: 09/01/19 17:26 Last Admin: 09/01/19 16:34 Dose: 1,000 mls/hr Lactated Ringer's (Ringers, Lactated) 1,000 mls @ 150 mls/hr IV ASDIRECTED [facility] Last Admin: 09/01/19 17:43 Dose: 150 mls/hr Diltiazem HCl 100 mg/ Sodium (Chloride) 100 mls @ 5 mls/hr IV TITRATE [facility]; Protocol Last Titration: 09/02/19 01:28 Dose: 2.5 mg/hr, 2.5 mls/hr Lactated Ringer's (Ringers, Lactated) 1,000 mls @ 100 mls/hr IV ASDIRECTED [facility] Last Admin: 09/02/19 10:10 Dose: 100 mls/hr Potassium Chloride 10 meq/ (Premix) 100 mls @ 100 mls/hr IV Q1H [facility] Stop: 09/02/19 03:29 Last Admin: 09/02/19 02:25 Dose: 100 mls/hr Pantoprazole Sodium 40 mg/ (Sodium Chloride) 100 mls @ 200 mls/hr IV Q12H [facility] Stop: 09/03/19 00:14 Magnesium Sulfate 4 gm/ Premix 50 mls @ 12.5 mls/hr IV ONETIME ONE Stop: 09/03/19 13:16 Last Admin: 09/03/19 09:55 Dose: 12.5 mls/hr Lisinopril (Prinivil) 10 mg PO DAILY [facility] Last Admin: 09/04/19 09:20 Dose: 10 mg Lorazepam (Ativan) 1 mg PO BEDTIME [facility] Last Admin: 09/01/19 21:56 Dose: 1 mg Pantoprazole Sodium (Protonix) 40 mg PO BIDAC [facility] Last Admin: 09/04/19 05:07 Dose: 40 mg Pantoprazole Sodium (Protonix Iv) 40 mg IVPUSH Q12H [facility] Stop: 09/03/19 00:01 Last Admin: 09/03/19 00:02 Dose: Not Given Potassium Chloride (Klor-Con M20) 40 meq PO BID [facility] Stop: 09/02/19 21:01 Last Admin: 09/02/19 19:59 Dose: 40 meq Thiamine HCl (Vitamin B-1) 100 mg IVPUSH DAILY [facility] Last Admin: 09/03/19 08:45 Dose: 100 mg - Exam Quality Assessment: Supplemental Oxygen General: Alert, Oriented HEENT: Pupils Equal Neck: Supple Lungs: Clear to Auscultation, Normal Respiratory Effort Cardiovascular: Regular Rate, Regular Rhythm GI/Abdominal Exam: Normal Bowel Sounds, Soft, Non-Tender, No Organomegaly, No Distention, No Abnormal Bruit, No Mass Extremities: Normal Inspection, Normal Range of Motion, No Pedal Edema Sepsis Event Note - Evaluation Sepsis Screening Result: No Definite Risk - Focused Exam Vital Signs: Vital Signs Temp Pulse Resp BP BP BP Pulse Ox 09/05/19 08:28 98.2 F 18 106/62 97 09/05/19 08:26 106/62 09/05/19 03:43 98.5 F 56 L 14 127/69 96 Date Exam was Performed: 09/05/19 Time Exam was Performed: 14:22 - Problem List Review Problem List Initiated/Reviewed/Updated: Yes - My Orders Last 24 Hours: My Active Orders 09/04/19 22:00 lisinopriL [Prinivil] 10 mg PO BID - Plan Plan:: Assessment 79-year-old male with alcoholism admitted with atrial fibrillation and RVR. * Presenting heart rate in the 120s to 130s. * Now in sinus rhythm * Significantly hypovolemic secondary to poor p.o. intake. Blood pressure improved with fluids * Hypovolemia has resolved * Off Cardizem drip * Continues in sinus rhythm and rate controlled with heart rate in the low 60s not on a rate controlling medication * EKG: September 02, 2019: Sinus rhythm ventricular rate 59, left bundle branch block * Patient is in sinus rhythm * Echocardiogram showed normal left ventricular ejection fraction of 50 to 55%. Pseudo-normal, grade 2, pattern of LV diastolic filling. Mid inferoseptal segment is abnormal. Normal right ventricular systolic function. Aortic valve is structurally normal and tricuspid. Mild mitral valve regurgitation. Mild tricuspid valve regurgitation. The right ventricular systolic pressure is mildly elevated at 42.3. * Stopped Eliquis 5 mg twice daily. Patient likely went into a single episode of A. fib due to his alcoholism. Recommendation is to wait for another episode before continuing anticoagulation. Alcoholism * NO signs of withdrawal * Drinks 4-5 beers and 1/3 bottle of rum daily * Last drink 4 to 5 days ago * Patient complained of difficulty sleeping, likely secondary to alcoholism * Ativan only had marginal improvement in sleep last night. Tobacco use: [id number] history * Likely COPD with possible exacerbation * Lung sounds significant for diffuse rhonchi and wheezes * Oxygen saturation 97% on room air * Normal chest x-ray * Doing well on nicotine patch. Bilateral conjunctivitis, right eye worse than left * Started on Polytrim 1 drop each eye every 4 hours while awake Hypertension * Increase lisinopril to 10 mg twice daily * hydrochlorothiazide 12.5 mg daily Unsteady gait * Likely neuropathy exacerbating secondary to his alcoholism * Physical therapy consulted Macrocytic anemia * Ferritin and vitamin B12 are both elevated, likely secondary to acute phase reactant. Iron is low at 52 and percent saturation is 35% * Anemia likely secondary to alcoholism and iron deficiency Elevated LFTs * Right upper quadrant ultrasound normal * Viral hepatitis panel negative * Likely secondary to alcoholism Plan * lisinopril/hydrochlorothiazide 10/12.5 mg daily * Temazepam 15 mg nightly, melatonin 9 mg at night * Albuterol/ipratropium bromide nebulizer every twice daily * Albuterol every 2 hours as needed * Augmentin twice daily * Thiamine 100 mg p.o. * Folic acid 1 mg at bedtime * Polytrim 1 drop each eye every 4 hours while awake * Hepatitis C antibody is negative * CODE STATUS: Full code * VTE prophylaxis with Eliquis * Prognosis good * Consult case management for likely placement * Length of stay greater than 96 hours secondary to difficulties placing patient in [facility] facility
[2019-09-05] MEDS ORDERED: Sodium Chloride 0.9% 10 ML Syringe FLUSH PRN (16:50)
[2019-09-05] MEDS: Folic Acid 1 MG Tab PO SCH (20:53)
[2019-09-05] MEDS: Temazepam 15 MG Cap PO SCH (21:50)
[2019-09-05] MEDS: Melatonin 3 MG Tab PO PRN (21:53)
[2019-09-05] MEDS ORDERED: Albuterol/Ipratropium 3.0-0.5 MG/3 ML Neb Soln NEB PRN (21:58)
[2019-09-06] MEDS: Polymyxin B/Trimethoprim 10 ML Bottle EYEBOTH SCH ×5 (05:17→21:11)
[2019-09-06] MEDS ORDERED: Lisinopril 10 MG Tab PO SCH (09:00)
[2019-09-06] MEDS: Nicotine 21 MG/24 Hr Patch TRDERM SCH (09:20)
[2019-09-06] MEDS: Thiamine 100 MG Tab PO SCH (09:20)
[2019-09-06] MEDS: Amoxicillin/Clavulanate K 875-125 MG Tab PO SCH (09:20)
[2019-09-06] MEDS: Hydrochlorothiazide 12.5 MG Cap PO SCH (09:24)
--- NOTE | 2019-09-06 12:59 | PCM.PN ---
- General Info Date of Service: 09/06/19 Admission Dx/Problem (Free Text): Admission Diagnosis/Problem Admission Diagnosis/Problem Atrial fibrillation Subjective Update: Patient continues to do well. He does complain of some depression. He is worried about where he is going to live. Appetite is good. Functional Status: Reports: Pain Controlled - Review of Systems General: Reports: No Symptoms HEENT: Reports: No Symptoms Pulmonary: Reports: No Symptoms Cardiovascular: Reports: No Symptoms Gastrointestinal: Reports: No Symptoms Musculoskeletal: Reports: No Symptoms Neurological: Reports: No Symptoms Psychiatric: Reports: Depression - Patient Data Vitals - Most Recent: Last Vital Signs Temp 97.9 F 09/06/19 09:15 Pulse 65 09/06/19 09:15 Resp 20 09/06/19 09:15 BP 99/53 L 09/06/19 09:24 Pulse Ox 99 09/06/19 09:15 Weight - Most Recent: 157 lb 4.8 oz I&O - Last 24 Hours: Intake & Output 09/05/19 09/06/19 09/06/19 22:59 06:59 14:59 Intake Total 700 200 240 Output Total 300 350 Balance 400 -150 240 Med Orders - Current: Current Medications Acetaminophen (Tylenol) 650 mg PO Q4H PRN PRN Reason: Pain (Mild 1-3)/fever Albuterol (Proventil Neb Soln) 2.5 mg NEB Q2H PRN PRN Reason: Shortness Of Breath/wheezing Albuterol/Ipratropium (Duoneb 3.0-0.5 Mg/3 Ml) 3 ml NEB BID PRN PRN Reason: Shortness of Breath Folic Acid (Folic Acid) 1 mg PO BEDTIME [facility] Last Admin: 09/05/19 20:53 Dose: 1 mg Hydrochlorothiazide (Hydrochlorothiazide) 12.5 mg PO DAILY [facility] Last Admin: 09/06/19 09:24 Dose: Not Given Lisinopril (Prinivil) 10 mg PO DAILY [facility] Last Admin: 09/06/19 09:24 Dose: Not Given Lorazepam (Ativan) 1 - 3 mg PO Q1H PRN; Protocol PRN Reason: Withdrawal Symptoms Melatonin (Melatonin) 9 mg PO BEDTIME PRN PRN Reason: Sleep Last Admin: 09/05/19 21:53 Dose: 9 mg Miscellaneous Information (Remove Patch) 1 ea TRDERM DAILY [facility] Last Admin: 09/06/19 09:25 Dose: Not Given Nicotine (Habitrol) 21 mg TRDERM DAILY [facility] Last Admin: 09/06/19 09:20 Dose: 21 mg Polymyxin/Trimethoprim Sulfate (Polytrim Ophth Soln) 0 ml EYEBOTH Q4HWA [facility] Last Admin: 09/06/19 09:21 Dose: 1 drop Sodium Chloride (Saline Flush) 10 ml FLUSH ASDIRECTED PRN PRN Reason: Keep Vein Open Temazepam (Restoril) 15 mg PO BEDTIME [facility] Last Admin: 09/05/19 21:50 Dose: 15 mg Thiamine HCl (Vitamin B-1) 100 mg PO DAILY [facility] Last Admin: 09/06/19 09:20 Dose: 100 mg Discontinued Medications Albuterol/Ipratropium (Duoneb 3.0-0.5 Mg/3 Ml) 3 ml NEB Q6H [facility] Last Admin: 09/02/19 13:59 Dose: 3 ml Albuterol/Ipratropium (Duoneb 3.0-0.5 Mg/3 Ml) 3 ml NEB QIDRT [facility] Last Admin: 09/03/19 06:13 Dose: 3 ml Albuterol/Ipratropium (Duoneb 3.0-0.5 Mg/3 Ml) 3 ml NEB BIDRT [facility] Last Admin: 09/03/19 20:47 Dose: 3 ml Albuterol/Ipratropium (Duoneb 3.0-0.5 Mg/3 Ml) 3 ml NEB BID [facility] Last Admin: 09/05/19 20:20 Dose: Not Given Amoxicillin/Clavulanate Potassium (Augmentin 875 Mg/125 Mg) 1 tab PO Q12HR [facility] Last Admin: 09/06/19 09:20 Dose: 1 tab Apixaban (Eliquis) 5 mg PO BID [facility] Last Admin: 09/04/19 09:21 Dose: 5 mg Sodium Chloride (Normal Saline) Confirm Administered Dose 1,000 mls @ as directed .ROUTE .STK-MED ONE Stop: 09/01/19 14:49 Last Admin: 09/01/19 14:54 Dose: Not Given Sodium Chloride (Normal Saline) 1,000 mls @ 1,000 mls/hr IV .BOLUS [facility] Last Admin: 09/01/19 14:55 Dose: 1,000 mls/hr Sodium Chloride (Normal Saline) 1,000 mls @ 1,000 mls/hr IV ONETIME ONE Stop: 09/01/19 17:26 Last Admin: 09/01/19 16:34 Dose: 1,000 mls/hr Lactated Ringer's (Ringers, Lactated) 1,000 mls @ 150 mls/hr IV ASDIRECTED [facility] Last Admin: 09/01/19 17:43 Dose: 150 mls/hr Diltiazem HCl 100 mg/ Sodium (Chloride) 100 mls @ 5 mls/hr IV TITRATE [facility]; Protocol Last Titration: 09/02/19 01:28 Dose: 2.5 mg/hr, 2.5 mls/hr Lactated Ringer's (Ringers, Lactated) 1,000 mls @ 100 mls/hr IV ASDIRECTED [facility] Last Admin: 09/02/19 10:10 Dose: 100 mls/hr Potassium Chloride 10 meq/ (Premix) 100 mls @ 100 mls/hr IV Q1H [facility] Stop: 09/02/19 03:29 Last Admin: 09/02/19 02:25 Dose: 100 mls/hr Pantoprazole Sodium 40 mg/ (Sodium Chloride) 100 mls @ 200 mls/hr IV Q12H [facility] Stop: 09/03/19 00:14 Magnesium Sulfate 4 gm/ Premix 50 mls @ 12.5 mls/hr IV ONETIME ONE Stop: 09/03/19 13:16 Last Admin: 09/03/19 09:55 Dose: 12.5 mls/hr Lisinopril (Prinivil) 10 mg PO DAILY [facility] Last Admin: 09/04/19 09:20 Dose: 10 mg Lisinopril (Prinivil) 10 mg PO BID [facility] Last Admin: 09/05/19 21:50 Dose: Not Given Lorazepam (Ativan) 1 mg PO BEDTIME [facility] Last Admin: 09/01/19 21:56 Dose: 1 mg Pantoprazole Sodium (Protonix) 40 mg PO BIDAC [facility] Last Admin: 09/04/19 05:07 Dose: 40 mg Pantoprazole Sodium (Protonix Iv) 40 mg IVPUSH Q12H [facility] Stop: 09/03/19 00:01 Last Admin: 09/03/19 00:02 Dose: Not Given Potassium Chloride (Klor-Con M20) 40 meq PO BID [facility] Stop: 09/02/19 21:01 Last Admin: 09/02/19 19:59 Dose: 40 meq Sodium Chloride (Saline Flush) 10 ml FLUSH ASDIRECTED PRN PRN Reason: Keep Vein Open Last Admin: 09/01/19 14:59 Dose: 10 ml Thiamine HCl (Vitamin B-1) 100 mg IVPUSH DAILY [facility] Last Admin: 09/03/19 08:45 Dose: 100 mg - Exam Quality Assessment: No: Supplemental Oxygen General: Alert, Oriented HEENT: Pupils Equal, Mucous Membr. Moist/[place] Neck: Supple Lungs: Clear to Auscultation, Normal Respiratory Effort Cardiovascular: Regular Rate, Regular Rhythm GI/Abdominal Exam: Normal Bowel Sounds, Soft, Non-Tender, No Organomegaly, No Distention, No Abnormal Bruit, No Mass Extremities: Normal Inspection, Normal Range of Motion, Non-Tender, No Pedal Edema, Normal Capillary Refill Skin: Warm, Dry, Intact Neurological: No New Focal Deficit Psy/Mental Status: Alert, Depressed Sepsis Event Note - Evaluation Sepsis Screening Result: No Definite Risk - Focused Exam Vital Signs: Vital Signs Temp Pulse Resp BP Pulse Ox 09/06/19 09:24 99/53 L 09/06/19 09:15 97.9 F 65 20 99/53 L 99 09/06/19 04:15 98.2 F 52 L 18 114/43 L 95 Date Exam was Performed: 09/06/19 Time Exam was Performed: 12:52 - Problem List Review Problem List Initiated/Reviewed/Updated: Yes - My Orders Last 24 Hours: My Active Orders 09/05/19 16:50 Sodium Chloride 0.9% [Saline Flush] 10 ml FLUSH ASDIRECTED PRN 09/05/19 21:37 Admission Status [Patient Status] [ADT] Routine 09/05/19 21:58 Albuterol/Ipratropium [DuoNeb 3.0-0.5 MG/3 ML] 3 ml NEB BID PRN 09/06/19 09:00 lisinopriL [Prinivil] 10 mg PO DAILY 09/06/19 10:56 Peripheral IV Discontinue [OM.PC] Routine - Plan Plan:: Assessment 79-year-old male with alcoholism admitted with atrial fibrillation and RVR. * Presenting heart rate in the 120s to 130s. * Now in sinus rhythm * Significantly hypovolemic secondary to poor p.o. intake. Blood pressure improved with fluids * Hypovolemia has resolved * Off Cardizem drip * Continues in sinus rhythm and rate controlled with heart rate in the low 60s not on a rate controlling medication * EKG: September 02, 2019: Sinus rhythm ventricular rate 59, left bundle branch block * Patient is in sinus rhythm * Echocardiogram showed normal left ventricular ejection fraction of 50 to 55%. Pseudo-normal, grade 2, pattern of LV diastolic filling. Mid inferoseptal segment is abnormal. Normal right ventricular systolic function. Aortic valve is structurally normal and tricuspid. Mild mitral valve regurgitation. Mild tricuspid valve regurgitation. The right ventricular systolic pressure is mildly elevated at 42.3. * Stopped Eliquis 5 mg twice daily. Patient likely went into a single episode of A. fib due to his alcoholism. Recommendation is to wait for another episode before continuing anticoagulation. Alcoholism * NO signs of withdrawal * Drinks 4-5 beers and 1/3 bottle of rum daily * Last drink 4 to 5 days ago * Patient complained of difficulty sleeping, likely secondary to alcoholism * Ativan only had marginal improvement in sleep last night. Tobacco use: [id number] history * Likely COPD with possible exacerbation * Lung sounds significant for diffuse rhonchi and wheezes * Oxygen saturation 97% on room air * Normal chest x-ray * Doing well on nicotine patch. * Finish 5 days of Augment Bilateral conjunctivitis, right eye worse than left * Polytrim 1 drop each eye every 4 hours while awake; treat for 7 - 10 days Hypertension * Last few blood pressures have been low. Held lisinopril last night and this morning. * Currently Lisinopril to 10 mg daily * Currently hydrochlorothiazide 12.5 mg daily Unsteady gait * Likely neuropathy exacerbating secondary to his alcoholism * Physical therapy consulted Macrocytic anemia * Ferritin and vitamin B12 are both elevated, likely secondary to acute phase reactant. Iron is low at 52 and percent saturation is 35% * Anemia likely secondary to alcoholism and iron deficiency Elevated LFTs * Right upper quadrant ultrasound normal * Viral hepatitis panel negative * Likely secondary to alcoholism Depression * With insomnia * Insomnia is currently treated with temazepam which is not the best choice for someone with depression, but may improve his ETOH craving. He states he is not craving ETOH at this time. Plan * Stop lisinopril/hydrochlorothiazide 10/12.5 mg daily * Start mirtazapine 15 mg qhs * Change Temazepam to 7.5 mg nightly prn, continue melatonin 9 mg at night * Albuterol/ipratropium bromide nebulizer every twice daily * Albuterol every 2 hours as needed * Stop Augmentin twice daily * Thiamine 100 mg p.o. * Folic acid 1 mg at bedtime * Polytrim 1 drop each eye every 4 hours while awake * Hepatitis C antibody is negative * CODE STATUS: Full code * VTE prophylaxis with Lovenox * Prognosis good * Consult case management for likely placement * Length of stay greater than 96 hours secondary to difficulties placing patient in correction facility
[2019-09-06] MEDS ORDERED: Enoxaparin 40 MG/0.4 ML Syringe SUBCUT SCH (14:00)
[2019-09-06] MEDS: Enoxaparin 40 MG/0.4 ML Syringe SUBCUT SCH (17:12)
[2019-09-06] MEDS: Folic Acid 1 MG Tab PO SCH (21:08)
[2019-09-06] MEDS: Mirtazapine 15 MG Tab PO SCH (21:09)
[2019-09-06] MEDS: Melatonin 3 MG Tab PO PRN (21:37)
[2019-09-06] MEDS: Temazepam 7.5 MG Cap PO PRN (21:37)
[2019-09-07] MEDS: Polymyxin B/Trimethoprim 10 ML Bottle EYEBOTH SCH ×5 (05:49→21:47)
[2019-09-07] MEDS: Nicotine 21 MG/24 Hr Patch TRDERM SCH (09:12)
[2019-09-07] MEDS: Thiamine 100 MG Tab PO SCH (09:13)
[2019-09-07] MEDS: Hydrochlorothiazide 12.5 MG Cap PO SCH (09:13)
--- NOTE | 2019-09-07 11:54 | PCM.PN ---
- General Info Date of Service: 09/07/19 Admission Dx/Problem (Free Text): Admission Diagnosis/Problem Admission Diagnosis/Problem Atrial fibrillation Functional Status: Reports: Pain Controlled, Tolerating Diet, Ambulating, Urinating. Denies: New Symptoms - Review of Systems General: Reports: No Symptoms. Denies: Fever, Weakness, Fatigue, Malaise, Chills HEENT: Reports: No Symptoms. Denies: Headaches, Sore Throat Pulmonary: Reports: No Symptoms. Denies: Shortness of Breath, Cough, Sputum, Wheezing Cardiovascular: Reports: No Symptoms. Denies: Chest Pain, Palpitations, Dyspnea on Exertion Gastrointestinal: Reports: No Symptoms. Denies: Abdominal Pain, Constipation, Diarrhea, Nausea, Vomiting Genitourinary: Reports: No Symptoms. Denies: Pain Musculoskeletal: Reports: No Symptoms Skin: Reports: No Symptoms. Denies: Cyanosis Neurological: Reports: Difficulty Walking, Gait Disturbance. Denies: Confusion Psychiatric: Reports: No Symptoms - Patient Data Vitals - Most Recent: Last Vital Signs Temp 98.2 F 09/07/19 07:51 Pulse 59 L 09/07/19 07:51 Resp 16 09/07/19 07:51 BP 113/63 09/07/19 07:51 Pulse Ox 99 09/07/19 07:51 Weight - Most Recent: 157 lb 14.4 oz I&O - Last 24 Hours: Intake & Output 09/06/19 09/07/19 09/07/19 22:59 06:59 14:59 Intake Total 530 250 240 Output Total 250 600 Balance 280 -350 240 Lab Results Last 24 Hours: Laboratory Results - last 24 hr 09/07/19 09/07/19 Range/Units 05:25 05:25 WBC 11.31 H (4.23-9.07) K/mm3 RBC 3.60 L (4.63-6.08) M/mm3 Hgb 12.9 L (13.7-17.5) gm/dl Hct 38.9 L (40.1-51.0) % MCV 108.1 H (79.0-92.2) fl MCH 35.8 H (25.7-32.2) pg MCHC 33.2 (32.2-35.5) g/dl RDW Std Deviation 51.9 H (35.1-43.9) fL Plt Count 255 D (163-337) K/mm3 MPV 10.0 (9.4-12.3) fl Neut % (Auto) 19.6 L (34.0-67.9) % Lymph % (Auto) 62.7 H (21.8-53.1) % [place] % (Auto) 15.6 H (5.3-12.2) % Eos % (Auto) 1.4 (0.8-7.0) Baso % (Auto) 0.4 (0.1-1.2) % Neut # (Auto) 2.22 (1.78-5.38) K/mm3 Lymph # (Auto) 7.09 H (1.32-3.57) K/mm3 [place] # (Auto) 1.77 H (0.30-0.82) K/mm3 Eos # (Auto) 0.16 (0.04-0.54) K/mm3 Baso # (Auto) 0.04 (0.01-0.08) K/mm3 Manual Slide Review Abnormal smear Sodium 141 (136-145) mEq/L Potassium 3.8 (3.5-5.1) mEq/L Chloride 105 (98-107) mEq/L Carbon Dioxide 28 (21-32) mEq/L Anion Gap 11.8 (5-15) BUN 10 (7-18) mg/dL Creatinine 1.2 (0.7-1.3) mg/dL Est Cr Clr Drug Dosing 50.73 mL/min Estimated GFR (MDRD) 59 (>60) mL/min BUN/Creatinine Ratio 8.3 L (14-18) Glucose 110 (83-115) mg/dL Calcium 9.2 (8.5-10.1) mg/dL Magnesium 1.8 (1.8-2.4) mg/dl Total Bilirubin 0.6 (0.2-1.0) mg/dL AST 119 H (15-37) U/L ALT 200 H (16-63) U/L Alkaline Phosphatase 89 (46-116) U/L Total Protein 5.7 L (6.4-8.2) g/dl Albumin 2.8 L (3.4-5.0) g/dl Globulin 2.9 gm/dL Albumin/Globulin Ratio 1.0 (1-2) Med Orders - Current: Current Medications Acetaminophen (Tylenol) 650 mg PO Q4H PRN PRN Reason: Pain (Mild 1-3)/fever Albuterol (Proventil Neb Soln) 2.5 mg NEB Q2H PRN PRN Reason: Shortness Of Breath/wheezing Albuterol/Ipratropium (Duoneb 3.0-0.5 Mg/3 Ml) 3 ml NEB BID PRN PRN Reason: Shortness of Breath Enoxaparin Sodium (Lovenox) 40 mg SUBCUT Q24H [facility] Last Admin: 09/06/19 17:12 Dose: 40 mg Folic Acid (Folic Acid) 1 mg PO BEDTIME HAILEE Last Admin: 09/06/19 21:08 Dose: 1 mg Hydrochlorothiazide (Hydrochlorothiazide) 12.5 mg PO DAILY [facility] Last Admin: 09/07/19 09:13 Dose: 12.5 mg Lorazepam (Ativan) 1 - 3 mg PO Q1H PRN; Protocol PRN Reason: Withdrawal Symptoms Magnesium Hydroxide (Milk Of Magnesia) 30 ml PO ONETIME ONE Stop: 09/07/19 14:01 Melatonin (Melatonin) 9 mg PO BEDTIME PRN PRN Reason: Sleep Last Admin: 09/06/19 21:37 Dose: 9 mg Mirtazapine (Remeron) 15 mg PO BEDTIME [facility] Last Admin: 09/06/19 21:09 Dose: 15 mg Miscellaneous Information (Remove Patch) 1 ea TRDERM DAILY [facility] Last Admin: 09/07/19 09:12 Dose: 1 ea Nicotine (Habitrol) 21 mg TRDERM DAILY [facility] Last Admin: 09/07/19 09:12 Dose: 21 mg Polymyxin/Trimethoprim Sulfate (Polytrim Ophth Soln) 0 ml EYEBOTH Q4HWA [facility] Last Admin: 09/07/19 09:13 Dose: 1 drop Sodium Chloride (Saline Flush) 10 ml FLUSH ASDIRECTED PRN PRN Reason: Keep Vein Open Temazepam (Restoril) 7.5 mg PO BEDTIME PRN PRN Reason: Insomnia Last Admin: 09/06/19 21:37 Dose: 7.5 mg Thiamine HCl (Vitamin B-1) 100 mg PO DAILY [facility] Last Admin: 09/07/19 09:13 Dose: 100 mg Discontinued Medications Albuterol/Ipratropium (Duoneb 3.0-0.5 Mg/3 Ml) 3 ml NEB Q6H [facility] Last Admin: 09/02/19 13:59 Dose: 3 ml Albuterol/Ipratropium (Duoneb 3.0-0.5 Mg/3 Ml) 3 ml NEB QIDRT [facility] Last Admin: 09/03/19 06:13 Dose: 3 ml Albuterol/Ipratropium (Duoneb 3.0-0.5 Mg/3 Ml) 3 ml NEB BIDRT [facility] Last Admin: 09/03/19 20:47 Dose: 3 ml Albuterol/Ipratropium (Duoneb 3.0-0.5 Mg/3 Ml) 3 ml NEB BID [facility] Last Admin: 09/05/19 20:20 Dose: Not Given Amoxicillin/Clavulanate Potassium (Augmentin 875 Mg/125 Mg) 1 tab PO Q12HR [facility] Last Admin: 09/06/19 09:20 Dose: 1 tab Apixaban (Eliquis) 5 mg PO BID [facility] Last Admin: 09/04/19 09:21 Dose: 5 mg Enoxaparin Sodium (Lovenox) 40 mg SUBCUT Q24H [facility] Last Admin: 09/06/19 17:22 Dose: Not Given Sodium Chloride (Normal Saline) Confirm Administered Dose 1,000 mls @ as directed .ROUTE .STK-MED ONE Stop: 09/01/19 14:49 Last Admin: 09/01/19 14:54 Dose: Not Given Sodium Chloride (Normal Saline) 1,000 mls @ 1,000 mls/hr IV .BOLUS [facility] Last Admin: 09/01/19 14:55 Dose: 1,000 mls/hr Sodium Chloride (Normal Saline) 1,000 mls @ 1,000 mls/hr IV ONETIME ONE Stop: 09/01/19 17:26 Last Admin: 09/01/19 16:34 Dose: 1,000 mls/hr Lactated Ringer's (Ringers, Lactated) 1,000 mls @ 150 mls/hr IV ASDIRECTED [facility] Last Admin: 09/01/19 17:43 Dose: 150 mls/hr Diltiazem HCl 100 mg/ Sodium (Chloride) 100 mls @ 5 mls/hr IV TITRATE HAILEE; Protocol Last Titration: 09/02/19 01:28 Dose: 2.5 mg/hr, 2.5 mls/hr Lactated Ringer's (Ringers, Lactated) 1,000 mls @ 100 mls/hr IV ASDIRECTED [facility] Last Admin: 09/02/19 10:10 Dose: 100 mls/hr Potassium Chloride 10 meq/ (Premix) 100 mls @ 100 mls/hr IV Q1H [facility] Stop: 09/02/19 03:29 Last Admin: 09/02/19 02:25 Dose: 100 mls/hr Pantoprazole Sodium 40 mg/ (Sodium Chloride) 100 mls @ 200 mls/hr IV Q12H [facility] Stop: 09/03/19 00:14 Magnesium Sulfate 4 gm/ Premix 50 mls @ 12.5 mls/hr IV ONETIME ONE Stop: 09/03/19 13:16 Last Admin: 09/03/19 09:55 Dose: 12.5 mls/hr Lisinopril (Prinivil) 10 mg PO DAILY [facility] Last Admin: 09/04/19 09:20 Dose: 10 mg Lisinopril (Prinivil) 10 mg PO BID [facility] Last Admin: 09/05/19 21:50 Dose: Not Given Lisinopril (Prinivil) 10 mg PO DAILY [facility] Last Admin: 09/06/19 09:24 Dose: Not Given Lorazepam (Ativan) 1 mg PO BEDTIME [facility] Last Admin: 09/01/19 21:56 Dose: 1 mg [facility] Admin: 09/04/19 05:07 Dose: 40 mg Pantoprazole Sodium (Protonix Iv) 40 mg IVPUSH Q12H [facility] Stop: 09/03/19 00:01 Last Admin: 09/03/19 00:02 Dose: Not Given Potassium Chloride (Klor-Con M20) 40 meq PO BID [facility] Stop: 09/02/19 21:01 Last Admin: 09/02/19 19:59 Dose: 40 meq Sodium Chloride (Saline Flush) 10 ml FLUSH ASDIRECTED PRN PRN Reason: Keep Vein Open Last Admin: 09/01/19 14:59 Dose: 10 ml Temazepam (Restoril) 15 mg PO BEDTIME [facility] Last Admin: 09/05/19 21:50 Dose: 15 mg Thiamine HCl (Vitamin B-1) 100 mg IVPUSH DAILY [facility] Last Admin: 09/03/19 08:45 Dose: 100 mg - Exam Quality Assessment: DVT Prophylaxis. No: Supplemental Oxygen General: Alert, Oriented HEENT: Pupils Equal, Pupils Reactive, Mucous Membr. Moist/[place] Neck: Supple, Trachea Midline Lungs: Clear to Auscultation, Normal Respiratory Effort Cardiovascular: Regular Rate, Regular Rhythm GI/Abdominal Exam: Normal Bowel Sounds, Soft, Non-Tender, No Distention (Male) Exam: Deferred Back Exam: Normal Inspection, Full Range of Motion Extremities: Normal Inspection, Normal Range of Motion, Non-Tender, No Pedal Edema, Normal Capillary Refill Skin: Warm, Dry, Intact Neurological: No New Focal Deficit Psy/Mental Status: Alert EKG INTERPRETATION Rhythm: NSR [place]: Normal P-Wave: Present QRS: Normal ST-T: Normal QT: Normal Sepsis Event Note - Evaluation Sepsis Screening Result: No Definite Risk - Focused Exam Vital Signs: Vital Signs Temp Temp Pulse Pulse Resp BP BP 09/07/19 07:51 98.2 F 59 L 16 113/63 09/07/19 05:44 97.9 F 55 L 16 130/72 Pulse Ox 09/07/19 07:51 99 09/07/19 05:44 100 Date Exam was Performed: 09/07/19 Time Exam was Performed: 13:24 - Problem List & Annotations (1) Atrial fibrillation with RVR SNOMED Code(s): 892167239753248 Code(s): I48.91 - UNSPECIFIED ATRIAL FIBRILLATION Status: Resolved Priority: High Current Visit: Yes (2) Dehydration SNOMED Code(s): 81675814 Code(s): E86.0 - DEHYDRATION Status: Acute Priority: High Current Visit : Yes (3) Elevated liver enzymes SNOMED Code(s): 471564875 Code(s): R74.8 - ABNORMAL LEVELS OF OTHER SERUM ENZYMES Status: Acute Priority: High Current Visit: Yes (4) Renal insufficiency SNOMED Code(s): 239143738, 501714449 Code(s): N28.9 - DISORDER OF KIDNEY AND URETER, UNSPECIFIED Status: Acute Priority: High Current Visit: Yes (5) Bilateral conjunctivitis SNOMED Code(s): 3841627 Code(s): H10.9 - UNSPECIFIED CONJUNCTIVITIS Status: Acute Priority: High Current Visit: Yes Qualifiers: Conjunctivitis type: unspecified Qualified Code(s): H10.9 - Unspecified conjunctivitis (6) Chronic alcohol use SNOMED Code(s): 862054 Code(s): Z72.89 - OTHER PROBLEMS RELATED TO LIFESTYLE Status: Acute Priority: High Current Visit: Yes (7) Depression SNOMED Code(s): 35932621 Code(s): F32.9 - MAJOR DEPRESSIVE DISORDER, SINGLE EPISODE, UNSPECIFIED Status: Acute Priority: High Current Visit: Yes Qualifiers: Depression Type: other depression Qualified Code(s): F32.89 - Other specified depressive episodes (8) Tobacco use disorder SNOMED Code(s): 974291995 Code(s): F17.200 - NICOTINE DEPENDENCE, UNSPECIFIED, UNCOMPLICATED Status: Acute Priority: High Current Visit: Yes (9) Macrocytic anemia SNOMED Code(s): 18497715 Code(s): D53.9 - NUTRITIONAL ANEMIA, UNSPECIFIED Status: Acute Priority: High Current Visit: Yes (10) Unsteady gait SNOMED Code(s): 592534748, 385925189 Code(s): R26.81 - UNSTEADINESS ON FEET Status: Acute Priority: High Current Visit: Yes (11) Elevated ferritin SNOMED Code(s): 720469069, 417987413 Code(s): R79.89 - OTHER SPECIFIED ABNORMAL FINDINGS OF BLOOD CHEMISTRY Status: Acute Priority: High Current Visit: Yes (12) Elevated vitamin B12 level SNOMED Code(s): 258710791, 299289142 Code(s): R74.8 - ABNORMAL LEVELS OF OTHER SERUM ENZYMES Status: Acute Priority: High Current Visit: Yes (13) Iron deficiency SNOMED Code(s): 83572935 Code(s): E61.1 - IRON DEFICIENCY Status: Acute Priority: High Current Visit: Yes - Problem List Review Problem List Initiated/Reviewed/Updated: Yes - Plan Plan:: Assessment 79-year-old male with alcoholism admitted with atrial fibrillation and RVR. * Presenting heart rate in the 120s to 130s. * Now in sinus rhythm * Significantly hypovolemic secondary to poor p.o. intake. Blood pressure improved with fluids * Hypovolemia has resolved * Off Cardizem drip * Continues in sinus rhythm and rate controlled with heart rate in the low 60s not on a rate controlling medication * EKG: September 02, 2019: Sinus rhythm ventricular rate 59, left bundle branch block * Patient is in sinus rhythm * Echocardiogram showed normal left ventricular ejection fraction of 50 to 55%. Pseudo-normal, grade 2, pattern of LV diastolic filling. Mid inferoseptal segment is abnormal. Normal right ventricular systolic function. Aortic valve is structurally normal and tricuspid. Mild mitral valve regurgitation. Mild tricuspid valve regurgitation. The right ventricular systolic pressure is mildly elevated at 42.3. * Stopped Eliquis 5 mg twice daily. Patient likely went into a single episode of A. fib due to his alcoholism. Recommendation is to wait for another episode before continuing anticoagulation. Alcoholism * NO signs of withdrawal * Drinks 4-5 beers and 1/3 bottle of rum daily * Last drink 4 to 5 days ago * Patient complained of difficulty sleeping, likely secondary to alcoholism * Ativan only had marginal improvement in sleep last night. Tobacco use: [id number] history * Likely COPD with possible exacerbation * Lung sounds significant for diffuse rhonchi and wheezes * Oxygen saturation 97% on room air * Normal chest x-ray * Doing well on nicotine patch. * Finish 5 days of Augment Bilateral conjunctivitis, right eye worse than left * Polytrim 1 drop each eye every 4 hours while awake; treat for 7 - 10 days Hypertension * Last few blood pressures have been low. Held lisinopril. * Currently Lisinopril to 10 mg daily - stop * Currently hydrochlorothiazide 12.5 mg daily - continue Unsteady gait * Likely neuropathy exacerbating secondary to his alcoholism * Physical therapy consulted Macrocytic anemia * Ferritin and vitamin B12 are both elevated, likely secondary to acute phase reactant. Iron is low at 52 and percent saturation is 35% * Anemia likely secondary to alcoholism and iron deficiency Elevated LFTs * Right upper quadrant ultrasound normal * Viral hepatitis panel negative * Likely secondary to alcoholism Depression * With insomnia * Insomnia is currently treated with temazepam which is not the best choice for someone with depression, but may improve his ETOH craving. He states he is not craving ETOH at this time. Plan * Stop lisinopril 10 mg daily * Continue hydrochlorothiazide 12.5 mg daily * Start mirtazapine 15 mg qhs * Change Temazepam to 7.5 mg nightly prn, continue melatonin 9 mg at night * Albuterol/ipratropium bromide nebulizer every twice daily * Albuterol every 2 hours as needed * Stop Augmentin twice daily - completed treatment * Thiamine 100 mg p.o. * Folic acid 1 mg at bedtime * Polytrim 1 drop each eye every 4 hours while awake * Hepatitis C antibody is negative * CODE STATUS: Full code * VTE prophylaxis with Lovenox * Prognosis good * Consult case management for placement * Length of stay greater than 96 hours secondary to difficulties placing patient in [facility] facility
[2019-09-07] MEDS ORDERED: Magnesium Hydroxide 400 MG/5 ML Susp 30 ML Cup PO ONE (14:00)
[2019-09-07] MEDS: Enoxaparin 40 MG/0.4 ML Syringe SUBCUT SCH (18:01)
[2019-09-07] MEDS: Melatonin 3 MG Tab PO PRN (21:47)
[2019-09-07] MEDS: Mirtazapine 15 MG Tab PO SCH (21:47)
[2019-09-07] MEDS: Temazepam 7.5 MG Cap PO PRN (21:47)
[2019-09-07] MEDS: Folic Acid 1 MG Tab PO SCH (21:47)
[2019-09-08] MEDS: Polymyxin B/Trimethoprim 10 ML Bottle EYEBOTH SCH ×5 (05:48→22:37)
--- NOTE | 2019-09-08 07:27 | PCM.PN ---
- General Info Date of Service: 09/08/19 Admission Dx/Problem (Free Text): Admission Diagnosis/Problem Admission Diagnosis/Problem Atrial fibrillation Subjective Update: Hu continues to do well. He has been up ambulating and states he feels good. No patient concerns. Functional Status: Reports: Pain Controlled, Tolerating Diet, Ambulating, Urinating. Denies: New Symptoms - Review of Systems General: Reports: Weakness (improving ). Denies: Fever, Fatigue, Malaise, Chills HEENT: Reports: No Symptoms. Denies: Headaches, Sore Throat Pulmonary: Reports: No Symptoms. Denies: Shortness of Breath, Pleuritic Chest Pain, Cough, Sputum, Wheezing Cardiovascular: Reports: No Symptoms. Denies: Chest Pain, Palpitations, Dyspnea on Exertion Gastrointestinal: Reports: No Symptoms. Denies: Abdominal Pain, Constipation, Diarrhea, Nausea, Vomiting Genitourinary: Reports: No Symptoms. Denies: Pain Musculoskeletal: Reports: No Symptoms Skin: Reports: No Symptoms. Denies: Cyanosis Neurological: Reports: Gait Disturbance. Denies: Confusion, Difficulty Walking Psychiatric: Reports: No Symptoms - Patient Data Vitals - Most Recent: Last Vital Signs Temp 98.1 F 09/08/19 02:22 Pulse 57 L 09/08/19 02:22 Resp 18 09/08/19 02:22 BP 133/81 09/08/19 02:22 Pulse Ox 94 L 09/08/19 02:22 Weight - Most Recent: 158 lb 6.4 oz I&O - Last 24 Hours: Intake & Output 09/07/19 09/08/19 09/08/19 22:59 06:59 14:59 Intake Total 260 150 60 Output Total 175 250 Balance 85 -100 60 Med Orders - Current: Current Medications Acetaminophen (Tylenol) 650 mg PO Q4H PRN PRN Reason: Pain (Mild 1-3)/fever Albuterol (Proventil Neb Soln) 2.5 mg NEB Q2H PRN PRN Reason: Shortness Of Breath/wheezing Albuterol/Ipratropium (Duoneb 3.0-0.5 Mg/3 Ml) 3 ml NEB BID PRN PRN Reason: Shortness of Breath Enoxaparin Sodium (Lovenox) 40 mg SUBCUT Q24H [facility]E Last Admin: 09/07/19 18:01 Dose: 40 mg Folic Acid (Folic Acid) 1 mg PO BEDTIME [facility] Last Admin: 09/07/19 21:47 Dose: 1 mg Hydrochlorothiazide (Hydrochlorothiazide) 12.5 mg PO DAILY [facility] Last Admin: 09/07/19 09:13 Dose: 12.5 mg Lorazepam (Ativan) 1 - 3 mg PO Q1H PRN; Protocol PRN Reason: Withdrawal Symptoms Melatonin (Melatonin) 9 mg PO BEDTIME PRN PRN Reason: Sleep Last Admin: 09/07/19 21:47 Dose: 9 mg Mirtazapine (Remeron) 15 mg PO BEDTIME [facility] Last Admin: 09/07/19 21:47 Dose: 15 mg Miscellaneous Information (Remove Patch) 1 ea TRDERM DAILY [facility] Last Admin: 09/07/19 09:12 Dose: 1 ea Nicotine (Habitrol) 21 mg TRDERM DAILY [facility] Last Admin: 09/07/19 09:12 Dose: 21 mg Polymyxin/Trimethoprim Sulfate (Polytrim Ophth Soln) 0 ml EYEBOTH Q4HWA [facility] Last Admin: 09/08/19 05:48 Dose: 1 drop Sodium Chloride (Saline Flush) 10 ml FLUSH ASDIRECTED PRN PRN Reason: Keep Vein Open Temazepam (Restoril) 7.5 mg PO BEDTIME PRN PRN Reason: Insomnia Last Admin: 09/07/19 21:47 Dose: 7.5 mg Thiamine HCl (Vitamin B-1) 100 mg PO DAILY [facility] Last Admin: 09/07/19 09:13 Dose: 100 mg Discontinued Medications Albuterol/Ipratropium (Duoneb 3.0-0.5 Mg/3 Ml) 3 ml NEB Q6H [facility] Last Admin: 09/02/19 13:59 Dose: 3 ml Albuterol/Ipratropium (Duoneb 3.0-0.5 Mg/3 Ml) 3 ml NEB QIDRT [facility] Last Admin: 09/03/19 06:13 Dose: 3 ml Albuterol/Ipratropium (Duoneb 3.0-0.5 Mg/3 Ml) 3 ml NEB BIDRT [facility] Last Admin: 09/03/19 20:47 Dose: 3 ml Albuterol/Ipratropium (Duoneb 3.0-0.5 Mg/3 Ml) 3 ml NEB BID [facility] Last Admin: 09/05/19 20:20 Dose: Not Given Amoxicillin/Clavulanate Potassium (Augmentin 875 Mg/125 Mg) 1 tab PO Q12HR [facility] Last Admin: 09/06/19 09:20 Dose: 1 tab Apixaban (Eliquis) 5 mg PO BID [facility] Last Admin: 09/04/19 09:21 Dose: 5 mg Enoxaparin Sodium (Lovenox) 40 mg SUBCUT Q24H [facility] Last Admin: 09/06/19 17:22 Dose: Not Given Sodium Chloride (Normal Saline) Confirm Administered Dose 1,000 mls @ as directed .ROUTE .STK-MED ONE Stop: 09/01/19 14:49 Last Admin: 09/01/19 14:54 Dose: Not Given Sodium Chloride (Normal Saline) 1,000 mls @ 1,000 mls/hr IV .BOLUS [facility] Last Admin: 09/01/19 14:55 Dose: 1,000 mls/hr Sodium Chloride (Normal Saline) 1,000 mls @ 1,000 mls/hr IV ONETIME ONE Stop: 09/01/19 17:26 Last Admin: 09/01/19 16:34 Dose: 1,000 mls/hr Lactated Ringer's (Ringers, Lactated) 1,000 mls @ 150 mls/hr IV ASDIRECTED [facility] Last Admin: 09/01/19 17:43 Dose: 150 mls/hr Diltiazem HCl 100 mg/ Sodium (Chloride) 100 mls @ 5 mls/hr IV TITRATE [facility]E; Protocol Last Titration: 09/02/19 01:28 Dose: 2.5 mg/hr, 2.5 mls/hr Lactated Ringer's (Ringers, Lactated) 1,000 mls @ 100 mls/hr IV ASDIRECTED [facility] Last Admin: 09/02/19 10:10 Dose: 100 mls/hr Potassium Chloride 10 meq/ (Premix) 100 mls @ 100 mls/hr IV Q1H [facility] Stop: 09/02/19 03:29 Last Admin: 09/02/19 02:25 Dose: 100 mls/hr Pantoprazole Sodium 40 mg/ (Sodium Chloride) 100 mls @ 200 mls/hr IV Q12H [facility] Stop: 09/03/19 00:14 Magnesium Sulfate 4 gm/ Premix 50 mls @ 12.5 mls/hr IV ONETIME ONE Stop: 09/03/19 13:16 Last Admin: 09/03/19 09:55 Dose: 12.5 mls/hr Lisinopril (Prinivil) 10 mg PO DAILY [facility] Last Admin: 09/04/19 09:20 Dose: 10 mg Lisinopril (Prinivil) 10 mg PO BID [facility] Last Admin: 09/05/19 21:50 Dose: Not Given Lisinopril (Prinivil) 10 mg PO DAILY [facility] Last Admin: 09/06/19 09:24 Dose: Not Given Lorazepam (Ativan) 1 mg PO BEDTIME [facility] Last Admin: 09/01/19 21:56 Dose: 1 mg Magnesium Hydroxide (Milk Of Magnesia) 30 ml PO ONETIME ONE Stop: 09/07/19 14:01 Last Admin: 09/07/19 14:58 Dose: 30 ml Pantoprazole Sodium (Protonix) 40 mg PO BIDAC [facility] Last Admin: 09/04/19 05:07 Dose: 40 mg Pantoprazole Sodium (Protonix Iv) 40 mg IVPUSH Q12H [facility] Stop: 09/03/19 00:01 Last Admin: 09/03/19 00:02 Dose: Not Given Potassium Chloride (Klor-Con M20) 40 meq PO BID [facility] Stop: 09/02/19 21:01 Last Admin: 09/02/19 19:59 Dose: 40 meq Sodium Chloride (Saline Flush) 10 ml FLUSH ASDIRECTED PRN PRN Reason: Keep Vein Open Last Admin: 09/01/19 14:59 Dose: 10 ml Temazepam (Restoril) 15 mg PO BEDTIME [facility] Last Admin: 09/05/19 21:50 Dose: 15 mg Thiamine HCl (Vitamin B-1) 100 mg IVPUSH DAILY [facility] Last Admin: 09/03/19 08:45 Dose: 100 mg - Exam Quality Assessment: DVT Prophylaxis General: Alert, Oriented, Cooperative, No Acute Distress HEENT: Pupils Equal, Pupils Reactive, Mucous Membr. Moist/[place] Neck: Supple, Trachea Midline Lungs: Clear to Auscultation, Normal Respiratory Effort Cardiovascular: Regular Rate, Regular Rhythm GI/Abdominal Exam: Normal Bowel Sounds, Soft, Non-Tender, No Distention (Male) Exam: Deferred Back Exam: Normal Inspection, Full Range of Motion Extremities: Normal Inspection, Normal Range of Motion, Non-Tender, No Pedal Edema, Normal Capillary Refill Skin: Warm, Dry, Intact Neurological: No New Focal Deficit Psy/Mental Status: Alert Sepsis Event Note - Evaluation Sepsis Screening Result: No Definite Risk - Focused Exam Vital Signs: Vital Signs Temp Pulse Resp BP Pulse Ox 09/08/19 02:22 98.1 F 57 L 18 133/81 94 L 09/07/19 21:46 98.1 F 63 18 110/68 97 Date Exam was Performed: 09/08/19 Time Exam was Performed: 12:40 - Problem List & Annotations (1) Atrial fibrillation with RVR SNOMED Code(s): 236576219719800 Code(s): I48.91 - UNSPECIFIED ATRIAL FIBRILLATION Status: Resolved Priority: High Current Visit: Yes (2) Dehydration SNOMED Code(s): 95450435 Code(s): E86.0 - DEHYDRATION Status: Acute Priority: High Current Visit : Yes (3) Elevated liver enzymes SNOMED Code(s): 963759844 Code(s): R74.8 - ABNORMAL LEVELS OF OTHER SERUM ENZYMES Status: Acute Priority: High Current Visit: Yes (4) Renal insufficiency SNOMED Code(s): 523156755, 833095880 Code(s): N28.9 - DISORDER OF KIDNEY AND URETER, UNSPECIFIED Status: Acute Priority: High Current Visit: Yes (5) Bilateral conjunctivitis SNOMED Code(s): 1531078 Code(s): H10.9 - UNSPECIFIED CONJUNCTIVITIS Status: Acute Priority: High Current Visit: Yes Qualifiers: Conjunctivitis type: unspecified Qualified Code(s): H10.9 - Unspecified conjunctivitis (6) Chronic alcohol use SNOMED Code(s): 213598 Code(s): Z72.89 - OTHER PROBLEMS RELATED TO LIFESTYLE Status: Acute Priority: High Current Visit: Yes (7) Depression SNOMED Code(s): 46988856 Code(s): F32.9 - MAJOR DEPRESSIVE DISORDER, SINGLE EPISODE, UNSPECIFIED Status: Acute Priority: High Current Visit: Yes Qualifiers: Depression Type: other depression Qualified Code(s): F32.89 - Other specified depressive episodes (8) Tobacco use disorder SNOMED Code(s): 951862794 Code(s): F17.200 - NICOTINE DEPENDENCE, UNSPECIFIED, UNCOMPLICATED Status: Acute Priority: High Current Visit: Yes (9) Macrocytic anemia SNOMED Code(s): 06862279 Code(s): D53.9 - NUTRITIONAL ANEMIA, UNSPECIFIED Status: Acute Priority: High Current Visit: Yes (10) Unsteady gait SNOMED Code(s): 265503334, 550009586 Code(s): R26.81 - UNSTEADINESS ON FEET Status: Acute Priority: High Current Visit: Yes (11) Elevated ferritin SNOMED Code(s): 622265457, 339411093 Code(s): R79.89 - OTHER SPECIFIED ABNORMAL FINDINGS OF BLOOD CHEMISTRY Status: Acute Priority: High Current Visit: Yes (12) Elevated vitamin B12 level SNOMED Code(s): 646368040, 315447166 Code(s): R74.8 - ABNORMAL LEVELS OF OTHER SERUM ENZYMES Status: Acute Priority: High Current Visit: Yes (13) Iron deficiency SNOMED Code(s): 81924890 Code(s): E61.1 - IRON DEFICIENCY Status: Acute Priority: High Current Visit: Yes - Problem List Review Problem List Initiated/Reviewed/Updated: Yes - Plan Plan:: Assessment 79-year-old male with alcoholism admitted with atrial fibrillation and RVR. * Presenting heart rate in the 120s to 130s. * Now in sinus rhythm * Significantly hypovolemic secondary to poor p.o. intake. Blood pressure improved with fluids * Hypovolemia has resolved * Off Cardizem drip * Continues in sinus rhythm and rate controlled with heart rate in the low 60s- 70s not on a rate controlling medication * EKG: September 02, 2019: Sinus rhythm ventricular rate 59, left bundle branch block * Patient is in sinus rhythm * Echocardiogram showed normal left ventricular ejection fraction of 50 to 55%. Pseudo-normal, grade 2, pattern of LV diastolic filling. Mid inferoseptal segment is abnormal. Normal right ventricular systolic function. Aortic valve is structurally normal and tricuspid. Mild mitral valve regurgitation. Mild tricuspid valve regurgitation. The right ventricular systolic pressure is mildly elevated at 42.3. * Stopped Eliquis 5 mg twice daily. Patient likely went into a single episode of A. fib due to his alcoholism. Recommendation is to wait for another episode before continuing anticoagulation. Alcoholism * NO signs of withdrawal * Drinks 4-5 beers and 1/3 bottle of rum daily * Last drink 4 to 5 days ago * Patient complained of difficulty sleeping, likely secondary to alcoholism * Ativan only had marginal improvement in sleep last night. Tobacco use: [id number] history * Likely COPD with possible exacerbation * Lung sounds significant for diffuse rhonchi and wheezes * Oxygen saturation 97% on room air * Normal chest x-ray * Doing well on nicotine patch. * Finish 5 days of Augment Bilateral conjunctivitis, right eye worse than left * Polytrim 1 drop each eye every 4 hours while awake; treat for 7 - 10 days Hypertension * Last few blood pressures have been low. Held lisinopril. * Currently Lisinopril to 10 mg daily - stop * Currently hydrochlorothiazide 12.5 mg daily - continue Unsteady gait * Likely neuropathy exacerbating secondary to his alcoholism * Physical therapy consulted Macrocytic anemia * Ferritin and vitamin B12 are both elevated, likely secondary to acute phase reactant. Iron is low at 52 and percent saturation is 35% * Anemia likely secondary to alcoholism and iron deficiency Elevated LFTs * Right upper quadrant ultrasound normal * Viral hepatitis panel negative * Likely secondary to alcoholism Depression * With insomnia * Insomnia is currently treated with temazepam which is not the best choice for someone with depression, but may improve his ETOH craving. He states he is not craving ETOH at this time. Plan * Stop lisinopril 10 mg daily * Continue hydrochlorothiazide 12.5 mg daily * Start mirtazapine 15 mg qhs * Change Temazepam to 7.5 mg nightly prn, continue melatonin 9 mg at night * Albuterol/ipratropium bromide nebulizer every twice daily * Albuterol every 2 hours as needed * Stop Augmentin twice daily - completed treatment * Thiamine 100 mg p.o. * Folic acid 1 mg at bedtime * Polytrim 1 drop each eye every 4 hours while awake * Hepatitis C antibody is negative * CODE STATUS: Full code * VTE prophylaxis with Lovenox * Prognosis good * Consult case management for placement * Length of stay greater than 96 hours secondary to difficulties placing patient in [facility] facility * Discharge pending placement Sunday 09/10 to [facility] [place]
[2019-09-08] MEDS: Nicotine 21 MG/24 Hr Patch TRDERM SCH (08:12)
[2019-09-08] MEDS: Thiamine 100 MG Tab PO SCH (08:13)
[2019-09-08] MEDS: Hydrochlorothiazide 12.5 MG Cap PO SCH (08:13)
[2019-09-08] MEDS ORDERED: Bisacodyl 5 MG Tab PO ONE (16:00)
[2019-09-08] MEDS: Enoxaparin 40 MG/0.4 ML Syringe SUBCUT SCH (18:28)
[2019-09-08] MEDS: Mirtazapine 15 MG Tab PO SCH (21:00)
[2019-09-08] MEDS: Folic Acid 1 MG Tab PO SCH (21:00)
[2019-09-08] MEDS: Temazepam 7.5 MG Cap PO PRN (21:47)
[2019-09-08] MEDS: Melatonin 3 MG Tab PO PRN (21:50)
[2019-09-09] MEDS ORDERED: Bisacodyl 10 MG Supp RECTAL ONE (06:30)
[2019-09-09] MEDS: Polymyxin B/Trimethoprim 10 ML Bottle EYEBOTH SCH ×6 (07:27→21:20)
[2019-09-09] MEDS: Nicotine 21 MG/24 Hr Patch TRDERM SCH (08:30)
[2019-09-09] MEDS: Hydrochlorothiazide 12.5 MG Cap PO SCH (08:30)
[2019-09-09] MEDS: Thiamine 100 MG Tab PO SCH (08:30)
--- NOTE | 2019-09-09 09:08 | PCM.PN ---
- General Info Date of Service: 09/09/19 Admission Dx/Problem (Free Text): Admission Diagnosis/Problem Admission Diagnosis/Problem Atrial fibrillation Functional Status: Reports: Pain Controlled, Tolerating Diet, Ambulating, Urinating. Denies: New Symptoms - Review of Systems General: Reports: Weakness (improving ). Denies: Fever, Fatigue, Malaise, Chills HEENT: Reports: No Symptoms. Denies: Headaches, Sore Throat Pulmonary: Reports: No Symptoms. Denies: Shortness of Breath, Pleuritic Chest Pain, Cough, Sputum, Wheezing Cardiovascular: Reports: No Symptoms. Denies: Chest Pain, Palpitations, Edema Gastrointestinal: Reports: No Symptoms. Denies: Abdominal Pain, Constipation, Diarrhea, Nausea, Vomiting Genitourinary: Reports: No Symptoms. Denies: Pain Musculoskeletal: Reports: No Symptoms Skin: Reports: No Symptoms. Denies: Cyanosis Neurological: Reports: No Symptoms. Denies: Confusion Psychiatric: Reports: No Symptoms - Patient Data Vitals - Most Recent: Last Vital Signs Temp 97.7 F 09/09/19 08:28 Pulse 67 09/09/19 08:28 Resp 16 09/09/19 08:28 BP 104/76 09/09/19 08:28 Pulse Ox 100 09/09/19 08:28 Weight - Most Recent: 161 lb 1.6 oz I&O - Last 24 Hours: Intake & Output 09/08/19 09/09/19 09/09/19 22:59 06:59 14:59 Intake Total 360 440 Output Total 200 450 Balance 160 -10 Med Orders - Current: Current Medications Acetaminophen (Tylenol) 650 mg PO Q4H PRN PRN Reason: Pain (Mild 1-3)/fever Albuterol (Proventil Neb Soln) 2.5 mg NEB Q2H PRN PRN Reason: Shortness Of Breath/wheezing Albuterol/Ipratropium (Duoneb 3.0-0.5 Mg/3 Ml) 3 ml NEB BID PRN PRN Reason: Shortness of Breath Enoxaparin Sodium (Lovenox) 40 mg SUBCUT Q24H [facility] Last Admin: 09/08/19 18:28 Dose: 40 mg Folic Acid (Folic Acid) 1 mg PO BEDTIME [facility] Last Admin: 09/08/19 21:00 Dose: 1 mg Hydrochlorothiazide (Hydrochlorothiazide) 12.5 mg PO DAILY [facility] Last Admin: 09/09/19 08:30 Dose: 12.5 mg Lorazepam (Ativan) 1 - 3 mg PO Q1H PRN; Protocol PRN Reason: Withdrawal Symptoms Melatonin (Melatonin) 9 mg PO BEDTIME PRN PRN Reason: Sleep Last Admin: 09/08/19 21:50 Dose: 9 mg Mirtazapine (Remeron) 15 mg PO BEDTIME [facility] Last Admin: 09/08/19 21:00 Dose: 15 mg Miscellaneous Information (Remove Patch) 1 ea TRDERM DAILY [facility] Last Admin: 09/09/19 08:29 Dose: 1 ea Nicotine (Habitrol) 21 mg TRDERM DAILY [facility] Last Admin: 09/09/19 08:30 Dose: 21 mg Polymyxin/Trimethoprim Sulfate (Polytrim Ophth Soln) 0 ml EYEBOTH Q4HWA [facility] Stop: 09/09/19 23:00 Last Admin: 09/09/19 08:55 Dose: 1 drop Sodium Chloride (Saline Flush) 10 ml FLUSH ASDIRECTED PRN PRN Reason: Keep Vein Open Temazepam (Restoril) 7.5 mg PO BEDTIME PRN PRN Reason: Insomnia Last Admin: 09/08/19 21:47 Dose: 7.5 mg Thiamine HCl (Vitamin B-1) 100 mg PO DAILY [facility] Last Admin: 09/09/19 08:30 Dose: 100 mg Discontinued Medications Albuterol/Ipratropium (Duoneb 3.0-0.5 Mg/3 Ml) 3 ml NEB Q6H [facility] Last Admin: 09/02/19 13:59 Dose: 3 ml Albuterol/Ipratropium (Duoneb 3.0-0.5 Mg/3 Ml) 3 ml NEB QIDRT [facility] Last Admin: 09/03/19 06:13 Dose: 3 ml Albuterol/Ipratropium (Duoneb 3.0-0.5 Mg/3 Ml) 3 ml NEB BIDRT [facility] Last Admin: 09/03/19 20:47 Dose: 3 ml Albuterol/Ipratropium (Duoneb 3.0-0.5 Mg/3 Ml) 3 ml NEB BID [facility] Last Admin: 09/05/19 20:20 Dose: Not Given Amoxicillin/Clavulanate Potassium (Augmentin 875 Mg/125 Mg) 1 tab PO Q12HR [facility] Last Admin: 09/06/19 09:20 Dose: 1 tab Apixaban (Eliquis) 5 mg PO BID [facility] Last Admin: 09/04/19 09:21 Dose: 5 mg Bisacodyl (Dulcolax) 10 mg PO ONETIME ONE Stop: 09/08/19 16:01 Last Admin: 09/08/19 16:04 Dose: 10 mg Bisacodyl (Dulcolax) 10 mg RECTAL ONETIME ONE Stop: 09/09/19 06:31 Last Admin: 09/09/19 06:07 Dose: 10 mg Enoxaparin Sodium (Lovenox) 40 mg SUBCUT Q24H [facility] Last Admin: 09/06/19 17:22 Dose: Not Given Sodium Chloride (Normal Saline) Confirm Administered Dose 1,000 mls @ as directed .ROUTE .STK-MED ONE Stop: 09/01/19 14:49 Last Admin: 09/01/19 14:54 Dose: Not Given Sodium Chloride (Normal Saline) 1,000 mls @ 1,000 mls/hr IV .BOLUS [facility] Last Admin: 09/01/19 14:55 Dose: 1,000 mls/hr Sodium Chloride (Normal Saline) 1,000 mls @ 1,000 mls/hr IV ONETIME ONE Stop: 09/01/19 17:26 Last Admin: 09/01/19 16:34 Dose: 1,000 mls/hr Lactated Ringer's (Ringers, Lactated) 1,000 mls @ 150 mls/hr IV ASDIRECTED [facility] Last Admin: 09/01/19 17:43 Dose: 150 mls/hr Diltiazem HCl 100 mg/ Sodium (Chloride) 100 mls @ 5 mls/hr IV TITRATE [facility]; Protocol Last Titration: 09/02/19 01:28 Dose: 2.5 mg/hr, 2.5 mls/hr Lactated Ringer's (Ringers, Lactated) 1,000 mls @ 100 mls/hr IV ASDIRECTED [facility] Last Admin: 09/02/19 10:10 Dose: 100 mls/hr Potassium Chloride 10 meq/ (Premix) 100 mls @ 100 mls/hr IV Q1H [facility] Stop: 09/02/19 03:29 Last Admin: 09/02/19 02:25 Dose: 100 mls/hr Pantoprazole Sodium 40 mg/ (Sodium Chloride) 100 mls @ 200 mls/hr IV Q12H [facility] Stop: 09/03/19 00:14 Magnesium Sulfate 4 gm/ Premix 50 mls @ 12.5 mls/hr IV ONETIME ONE Stop: 09/03/19 13:16 Last Admin: 09/03/19 09:55 Dose: 12.5 mls/hr Lisinopril (Prinivil) 10 mg PO DAILY [facility] Last Admin: 09/04/19 09:20 Dose: 10 mg Lisinopril (Prinivil) 10 mg PO BID [facility] Last Admin: 09/05/19 21:50 Dose: Not Given Lisinopril (Prinivil) 10 mg PO DAILY [facility] Last Admin: 09/06/19 09:24 Dose: Not Given Lorazepam (Ativan) 1 mg PO BEDTIME [facility] Last Admin: 09/01/19 21:56 Dose: 1 mg Magnesium Hydroxide (Milk Of Magnesia) 30 ml PO ONETIME ONE Stop: 09/07/19 14:01 Last Admin: 09/07/19 14:58 Dose: 30 ml Pantoprazole Sodium (Protonix) 40 mg PO BIDAC [facility] Last Admin: 09/04/19 05:07 Dose: 40 mg Pantoprazole Sodium (Protonix Iv) 40 mg IVPUSH Q12H [facility] Stop: 09/03/19 00:01 Last Admin: 09/03/19 00:02 Dose: Not Given Potassium Chloride (Klor-Con M20) 40 meq PO BID [facility] Stop: 09/02/19 21:01 Last Admin: 09/02/19 19:59 Dose: 40 meq Sodium Chloride (Saline Flush) 10 ml FLUSH ASDIRECTED PRN PRN Reason: Keep Vein Open Last Admin: 09/01/19 14:59 Dose: 10 ml Temazepam (Restoril) 15 mg PO BEDTIME [facility] Last Admin: 09/05/19 21:50 Dose: 15 mg Thiamine HCl (Vitamin B-1) 100 mg IVPUSH DAILY [facility] Last Admin: 09/03/19 08:45 Dose: 100 mg - Exam Quality Assessment: DVT Prophylaxis General: Alert, Oriented, Cooperative, No Acute Distress HEENT: Pupils Equal, Pupils Reactive, Mucous Membr. Moist/[place] Neck: Supple, Trachea Midline Lungs: Clear to Auscultation, Normal Respiratory Effort Cardiovascular: Regular Rate, Regular Rhythm. No: Bradycardia (occasional - not currently) GI/Abdominal Exam: Normal Bowel Sounds, Soft, Non-Tender, No Distention (Male) Exam: Deferred Back Exam: Normal Inspection, Full Range of Motion Extremities: Normal Inspection, Normal Range of Motion, Non-Tender, No Pedal Edema, Normal Capillary Refill Skin: Warm, Dry, Intact Neurological: No New Focal Deficit Psy/Mental Status: Alert, Normal Affect, Normal Mood Sepsis Event Note - Evaluation Sepsis Screening Result: No Definite Risk - Focused Exam Vital Signs: Vital Signs Temp Pulse Resp BP Pulse Ox 09/09/19 08:28 97.7 F 67 16 104/76 100 09/09/19 04:02 98.6 F 52 L 16 119/56 L 97 Date Exam was Performed: 09/09/19 Time Exam was Performed: 14:02 - Problem List & Annotations (1) Atrial fibrillation with RVR SNOMED Code(s): 344341681243802 Code(s): I48.91 - UNSPECIFIED ATRIAL FIBRILLATION Status: Resolved Priority: High Current Visit: Yes (2) Dehydration SNOMED Code(s): 16528428 Code(s): E86.0 - DEHYDRATION Status: Acute Priority: High Current Visit : Yes (3) Elevated liver enzymes SNOMED Code(s): 707457801 Code(s): R74.8 - ABNORMAL LEVELS OF OTHER SERUM ENZYMES Status: Acute Priority: High Current Visit: Yes (4) Renal insufficiency SNOMED Code(s): 035908713, 917103718 Code(s): N28.9 - DISORDER OF KIDNEY AND URETER, UNSPECIFIED Status: Acute Priority: High Current Visit: Yes (5) Bilateral conjunctivitis SNOMED Code(s): 0456874 Code(s): H10.9 - UNSPECIFIED CONJUNCTIVITIS Status: Acute Priority: High Current Visit: Yes Qualifiers: Conjunctivitis type: unspecified Qualified Code(s): H10.9 - Unspecified conjunctivitis (6) Chronic alcohol use SNOMED Code(s): 054719 Code(s): Z72.89 - OTHER PROBLEMS RELATED TO LIFESTYLE Status: Acute Priority: High Current Visit: Yes (7) Depression SNOMED Code(s): 16885926 Code(s): F32.9 - MAJOR DEPRESSIVE DISORDER, SINGLE EPISODE, UNSPECIFIED Status: Acute Priority: High Current Visit: Yes Qualifiers: Depression Type: other depression Qualified Code(s): F32.89 - Other specified depressive episodes (8) Tobacco use disorder SNOMED Code(s): 741774936 Code(s): F17.200 - NICOTINE DEPENDENCE, UNSPECIFIED, UNCOMPLICATED Status: Acute Priority: High Current Visit: Yes (9) Macrocytic anemia SNOMED Code(s): 91801302 Code(s): D53.9 - NUTRITIONAL ANEMIA, UNSPECIFIED Status: Acute Priority: High Current Visit: Yes (10) Unsteady gait SNOMED Code(s): 557301804, 036578308 Code(s): R26.81 - UNSTEADINESS ON FEET Status: Acute Priority: High Current Visit: Yes (11) Elevated ferritin SNOMED Code(s): 840655556, 958216538 Code(s): R79.89 - OTHER SPECIFIED ABNORMAL FINDINGS OF BLOOD CHEMISTRY Status: Acute Priority: High Current Visit: Yes (12) Elevated vitamin B12 level SNOMED Code(s): 560604313, 522675824 Code(s): R74.8 - ABNORMAL LEVELS OF OTHER SERUM ENZYMES Status: Acute Priority: High Current Visit: Yes (13) Iron deficiency SNOMED Code(s): 79590717 Code(s): E61.1 - IRON DEFICIENCY Status: Acute Priority: High Current Visit: Yes - Problem List Review Problem List Initiated/Reviewed/Updated: Yes - My Orders Last 24 Hours: My Active Orders 09/10/19 05:11 CBC WITH AUTO DIFF [HEME] AM CMP [COMPREHENSIVE METABOLIC PN,CMP] [CHEM] AM MAGNESIUM [CHEM] AM - Plan Plan:: Assessment 79-year-old male with alcoholism admitted with atrial fibrillation and RVR. * Presenting heart rate in the 120s to 130s. * Now in sinus rhythm * Significantly hypovolemic secondary to poor p.o. intake. Blood pressure improved with fluids * Hypovolemia has resolved * Off Cardizem drip * Continues in sinus rhythm and rate controlled with heart rate in the low 60s- 70s not on a rate controlling medication * EKG: September 02, 2019: Sinus rhythm ventricular rate 59, left bundle branch block * Patient is in sinus rhythm * Echocardiogram showed normal left ventricular ejection fraction of 50 to 55%. Pseudo-normal, grade 2, pattern of LV diastolic filling. Mid inferoseptal segment is abnormal. Normal right ventricular systolic function. Aortic valve is structurally normal and tricuspid. Mild mitral valve regurgitation. Mild tricuspid valve regurgitation. The right ventricular systolic pressure is mildly elevated at 42.3. * Stopped Eliquis 5 mg twice daily. Patient likely went into a single episode of A. fib due to his alcoholism. Recommendation is to wait for another episode before continuing anticoagulation. Alcoholism * NO signs of withdrawal * Drinks 4-5 beers and 1/3 bottle of rum daily * Last drink 4 to 5 days ago * Patient complained of difficulty sleeping, likely secondary to alcoholism * Ativan only had marginal improvement in sleep last night. Tobacco use: 45-nura-ibny history * Likely COPD with possible exacerbation * Lung sounds significant for diffuse rhonchi and wheezes * Oxygen saturation 97% on room air * Normal chest x-ray * Doing well on nicotine patch. * Finish 5 days of Augment Bilateral conjunctivitis, right eye worse than left * Polytrim 1 drop each eye every 4 hours while awake; Finish treatment today Hypertension, resolved * Last few blood pressures have been low. Held lisinopril. * Currently Lisinopril to 10 mg daily - stop * Currently hydrochlorothiazide 12.5 mg daily - continue Unsteady gait, improving * Likely neuropathy exacerbating secondary to his alcoholism * Physical therapy consulted Macrocytic anemia * Ferritin and vitamin B12 are both elevated, likely secondary to acute phase reactant. Iron is low at 52 and percent saturation is 35% * Anemia likely secondary to alcoholism and iron deficiency Elevated LFTs * Right upper quadrant ultrasound normal * Viral hepatitis panel negative * Likely secondary to alcoholism Depression * With insomnia * Insomnia is currently treated with temazepam which is not the best choice for someone with depression, but may improve his ETOH craving. He states he is not craving ETOH at this time. Plan * Stop lisinopril 10 mg daily * Continue hydrochlorothiazide 12.5 mg daily * Start mirtazapine 15 mg qhs * Change Temazepam to 7.5 mg nightly prn, continue melatonin 9 mg at night * Albuterol/ipratropium bromide nebulizer every twice daily * Albuterol every 2 hours as needed * Stop Augmentin twice daily - completed treatment * Thiamine 100 mg p.o. * Folic acid 1 mg at bedtime * Polytrim 1 drop each eye every 4 hours while awake - discontinue today * Hepatitis C antibody is negative * CODE STATUS: Full code * VTE prophylaxis with Lovenox * Prognosis good * Consult case management for placement * Length of stay greater than 96 hours secondary to difficulties placing patient in half-way facility * Discharge pending placement Sunday 09/10 to [facility]
[2019-09-09] MEDS: Enoxaparin 40 MG/0.4 ML Syringe SUBCUT SCH (17:18)
[2019-09-09] MEDS: Mirtazapine 15 MG Tab PO SCH (21:18)
[2019-09-09] MEDS: Temazepam 7.5 MG Cap PO PRN (21:18)
[2019-09-09] MEDS: Melatonin 3 MG Tab PO PRN (21:19)
[2019-09-09] MEDS: Folic Acid 1 MG Tab PO SCH (21:19)
[2019-09-10] MEDS: Biotin/Folic Acid/Vitamin C/Vitamin B Complex Tab PO SCH (08:45)
[2019-09-10] MEDS: Multivitamins,Therapeutic Tab PO SCH (08:45)
[2019-09-10] MEDS: Hydrochlorothiazide 12.5 MG Cap PO SCH (08:45)
[2019-09-10] MEDS: Thiamine 100 MG Tab PO SCH (08:45)
[2019-09-10] MEDS: Nicotine 21 MG/24 Hr Patch TRDERM SCH (08:49)
--- NOTE | 2019-09-10 08:54 | PCM.PN ---
<Edward Wooten - Last Filed: 09/10/19 12:28> - General Info Date of Service: 09/10/19 Admission Dx/Problem (Free Text): Admission Diagnosis/Problem Admission Diagnosis/Problem Atrial fibrillation Functional Status: Reports: Pain Controlled, Tolerating Diet, Ambulating, Urinating - Review of Systems General: Reports: Weakness. Denies: Fever, Fatigue, Malaise, Chills HEENT: Reports: No Symptoms. Denies: Headaches, Sore Throat Pulmonary: Reports: No Symptoms. Denies: Shortness of Breath, Cough, Sputum, Hemoptysis, Wheezing Cardiovascular: Reports: No Symptoms. Denies: Chest Pain, Palpitations, Dyspnea on Exertion Gastrointestinal: Reports: No Symptoms. Denies: Abdominal Pain, Constipation, Diarrhea, Nausea, Vomiting Genitourinary: Reports: Dysuria, Burning, Urgency Musculoskeletal: Reports: No Symptoms Skin: Reports: No Symptoms. Denies: Cyanosis Neurological: Reports: Weakness. Denies: Confusion Psychiatric: Reports: No Symptoms - Patient Data Vitals - Most Recent: Last Vital Signs Temp 97.9 F 09/10/19 03:01 Pulse 50 L 09/10/19 03:01 Resp 14 09/10/19 03:01 BP 115/53 L 09/10/19 03:01 Pulse Ox 98 09/10/19 03:01 Weight - Most Recent: 71.123 kg I&O - Last 24 Hours: Intake & Output 09/09/19 09/10/19 09/10/19 22:59 06:59 14:59 Intake Total 510 600 Output Total 300 825 Balance 210 -225 Lab Results Last 24 Hours: Laboratory Results - last 24 hr 09/10/19 09/10/19 Range/Units 05:42 05:42 WBC 14.09 H (4.23-9.07) K/mm3 RBC 3.84 L (4.63-6.08) M/mm3 Hgb 13.8 (13.7-17.5) gm/dl Hct 41.2 (40.1-51.0) % MCV 107.3 H (79.0-92.2) fl MCH 35.9 H (25.7-32.2) pg MCHC 33.5 (32.2-35.5) g/dl RDW Std Deviation 51.1 H (35.1-43.9) fL Plt Count 340 H D (163-337) K/mm3 MPV 10.1 (9.4-12.3) fl Neut % (Auto) 23.5 L (34.0-67.9) % Lymph % (Auto) 63.9 H (21.8-53.1) % [place] % (Auto) 10.5 (5.3-12.2) % Eos % (Auto) 1.3 (0.8-7.0) Baso % (Auto) 0.4 (0.1-1.2) % Neut # (Auto) 3.32 (1.78-5.38) K/mm3 Lymph # (Auto) 9.00 H (1.32-3.57) K/mm3 [place] # (Auto) 1.48 H (0.30-0.82) K/mm3 Eos # (Auto) 0.19 (0.04-0.54) K/mm3 Baso # (Auto) 0.05 (0.01-0.08) K/mm3 Manual Slide Review Abnormal smear Sodium 143 (136-145) mEq/L Potassium 4.2 (3.5-5.1) mEq/L Chloride 106 (98-107) mEq/L Carbon Dioxide 27 (21-32) mEq/L Anion Gap 14.2 (5-15) BUN 13 (7-18) mg/dL Creatinine 1.2 (0.7-1.3) mg/dL Est Cr Clr Drug Dosing 50.73 mL/min Estimated GFR (MDRD) 59 (>60) mL/min BUN/Creatinine Ratio 10.8 L (14-18) Glucose 114 (83-115) mg/dL Calcium 9.0 (8.5-10.1) mg/dL Magnesium 1.8 (1.8-2.4) mg/dl Total Bilirubin 0.7 (0.2-1.0) mg/dL AST 105 H (15-37) U/L ALT 212 H (16-63) U/L Alkaline Phosphatase 107 (46-116) U/L Total Protein 6.1 L (6.4-8.2) g/dl Albumin 3.0 L (3.4-5.0) g/dl Globulin 3.1 gm/dL Albumin/Globulin Ratio 1.0 (1-2) Med Orders - Current: Current Medications Acetaminophen (Tylenol) 650 mg PO Q4H PRN PRN Reason: Pain (Mild 1-3)/fever Albuterol (Proventil Neb Soln) 2.5 mg NEB Q2H PRN PRN Reason: Shortness Of Breath/wheezing Albuterol/Ipratropium (Duoneb 3.0-0.5 Mg/3 Ml) 3 ml NEB BID PRN PRN Reason: Shortness of Breath Enoxaparin Sodium (Lovenox) 40 mg SUBCUT Q24H [facility] Last Admin: 09/09/19 17:18 Dose: 40 mg Folic Acid (Folic Acid) 1 mg PO BEDTIME HAILEE Last Admin: 09/09/19 21:19 Dose: 1 mg Hydrochlorothiazide (Hydrochlorothiazide) 12.5 mg PO DAILY [facility] Last Admin: 09/10/19 08:45 Dose: 12.5 mg Lorazepam (Ativan) 1 - 3 mg PO Q1H PRN; Protocol PRN Reason: Withdrawal Symptoms Melatonin (Melatonin) 9 mg PO BEDTIME PRN PRN Reason: Sleep Last Admin: 09/09/19 21:19 Dose: 9 mg Mirtazapine (Remeron) 15 mg PO BEDTIME [facility] Last Admin: 09/09/19 21:18 Dose: 15 mg Miscellaneous Information (Remove Patch) 1 ea TRDERM DAILY [facility] Last Admin: 09/10/19 08:48 Dose: 1 ea Multivitamins (Thera) 1 each PO DAILY [facility] Last Admin: 09/10/19 08:45 Dose: 1 each Nicotine (Habitrol) 21 mg TRDERM DAILY [facility] Last Admin: 09/10/19 08:49 Dose: 21 mg Sodium Chloride (Saline Flush) 10 ml FLUSH ASDIRECTED PRN PRN Reason: Keep Vein Open Tamsulosin HCl (Flomax) 0.4 mg PO PCBREAKFAST [facility] Temazepam (Restoril) 7.5 mg PO BEDTIME PRN PRN Reason: Insomnia Last Admin: 09/09/19 21:18 Dose: 7.5 mg Thiamine HCl (Vitamin B-1) 100 mg PO DAILY [facility] Last Admin: 09/10/19 08:45 Dose: 100 mg Vitamin B Complex/Vit C/Folic Acid (Nephrocaps) 1 tab PO DAILY [facility] Last Admin: 09/10/19 08:45 Dose: 1 tab Discontinued Medications Albuterol/Ipratropium (Duoneb 3.0-0.5 Mg/3 Ml) 3 ml NEB Q6H [facility] Last Admin: 09/02/19 13:59 Dose: 3 ml Albuterol/Ipratropium (Duoneb 3.0-0.5 Mg/3 Ml) 3 ml NEB QIDRT [facility] Last Admin: 09/03/19 06:13 Dose: 3 ml Albuterol/Ipratropium (Duoneb 3.0-0.5 Mg/3 Ml) 3 ml NEB BIDRT [facility] Last Admin: 09/03/19 20:47 Dose: 3 ml Albuterol/Ipratropium (Duoneb 3.0-0.5 Mg/3 Ml) 3 ml NEB BID [facility] Last Admin: 09/05/19 20:20 Dose: Not Given Amoxicillin/Clavulanate Potassium (Augmentin 875 Mg/125 Mg) 1 tab PO Q12HR [facility] Last Admin: 09/06/19 09:20 Dose: 1 tab Apixaban (Eliquis) 5 mg PO BID [facility] Last Admin: 09/04/19 09:21 Dose: 5 mg Bisacodyl (Dulcolax) 10 mg PO ONETIME ONE Stop: 09/08/19 16:01 Last Admin: 09/08/19 16:04 Dose: 10 mg Bisacodyl (Dulcolax) 10 mg RECTAL ONETIME ONE Stop: 09/09/19 06:31 Last Admin: 09/09/19 06:07 Dose: 10 mg Enoxaparin Sodium (Lovenox) 40 mg SUBCUT Q24H [facility] Last Admin: 09/06/19 17:22 Dose: Not Given Sodium Chloride (Normal Saline) Confirm Administered Dose 1,000 mls @ as directed .ROUTE .STK-MED ONE Stop: 09/01/19 14:49 Last Admin: 09/01/19 14:54 Dose: Not Given Sodium Chloride (Normal Saline) 1,000 mls @ 1,000 mls/hr IV .BOLUS [facility] Last Admin: 09/01/19 14:55 Dose: 1,000 mls/hr Sodium Chloride (Normal Saline) 1,000 mls @ 1,000 mls/hr IV ONETIME ONE Stop: 09/01/19 17:26 Last Admin: 09/01/19 16:34 Dose: 1,000 mls/hr Lactated Ringer's (Ringers, Lactated) 1,000 mls @ 150 mls/hr IV ASDIRECTED [facility] Last Admin: 09/01/19 17:43 Dose: 150 mls/hr Diltiazem HCl 100 mg/ Sodium (Chloride) 100 mls @ 5 mls/hr IV TITRATE HAILEE; Protocol Last Titration: 09/02/19 01:28 Dose: 2.5 mg/hr, 2.5 mls/hr Lactated Ringer's (Ringers, Lactated) 1,000 mls @ 100 mls/hr IV ASDIRECTED [facility] Last Admin: 09/02/19 10:10 Dose: 100 mls/hr Potassium Chloride 10 meq/ (Premix) 100 mls @ 100 mls/hr IV Q1H [facility] Stop: 09/02/19 03:29 Last Admin: 09/02/19 02:25 Dose: 100 mls/hr Pantoprazole Sodium 40 mg/ (Sodium Chloride) 100 mls @ 200 mls/hr IV Q12H [facility] Stop: 09/03/19 00:14 Magnesium Sulfate 4 gm/ Premix 50 mls @ 12.5 mls/hr IV ONETIME ONE Stop: 09/03/19 13:16 Last Admin: 09/03/19 09:55 Dose: 12.5 mls/hr Lisinopril (Prinivil) 10 mg PO DAILY [facility] Last Admin: 09/04/19 09:20 Dose: 10 mg Lisinopril (Prinivil) 10 mg PO BID [facility] Last Admin: 09/05/19 21:50 Dose: Not Given Lisinopril (Prinivil) 10 mg PO DAILY [facility] Last Admin: 09/06/19 09:24 Dose: Not Given Lorazepam (Ativan) 1 mg PO BEDTIME [facility] Last Admin: 09/01/19 21:56 Dose: 1 mg Magnesium Hydroxide (Milk Of Magnesia) 30 ml PO ONETIME ONE Stop: 09/07/19 14:01 Last Admin: 09/07/19 14:58 Dose: 30 ml Pantoprazole Sodium (Protonix) 40 mg PO BIDAC [facility] Last Admin: 09/04/19 05:07 Dose: 40 mg Pantoprazole Sodium (Protonix Iv) 40 mg IVPUSH Q12H [facility] Stop: 09/03/19 00:01 Last Admin: 09/03/19 00:02 Dose: Not Given Polymyxin/Trimethoprim Sulfate (Polytrim Ophth Soln) 0 ml EYEBOTH Q4HWA [facility] Stop: 09/09/19 23:00 Last Admin: 09/09/19 21:20 Dose: 1 drop Potassium Chloride (Klor-Con M20) 40 meq PO BID [facility] Stop: 09/02/19 21:01 Last Admin: 09/02/19 19:59 Dose: 40 meq Sodium Chloride (Saline Flush) 10 ml FLUSH ASDIRECTED PRN PRN Reason: Keep Vein Open Last Admin: 09/01/19 14:59 Dose: 10 ml Temazepam (Restoril) 15 mg PO BEDTIME [facility] Last Admin: 09/05/19 21:50 Dose: 15 mg Thiamine HCl (Vitamin B-1) 100 mg IVPUSH DAILY [facility] Last Admin: 09/03/19 08:45 Dose: 100 mg - Exam Quality Assessment: DVT Prophylaxis General: Alert, Oriented, Cooperative, No Acute Distress HEENT: Pupils Equal, Pupils Reactive, Mucous Membr. Moist/[place] Neck: Supple, Trachea Midline Lungs: Clear to Auscultation, Normal Respiratory Effort Cardiovascular: Regular Rate, Regular Rhythm GI/Abdominal Exam: Normal Bowel Sounds, Soft, Non-Tender, No Distention (Male) Exam: Deferred Back Exam: Normal Inspection, Full Range of Motion Extremities: Normal Inspection, Normal Range of Motion, Non-Tender, No Pedal Edema, Normal Capillary Refill Skin: Warm, Dry, Intact Neurological: No New Focal Deficit Psy/Mental Status: Alert, Normal Affect, Normal Mood Sepsis Event Note - Evaluation Sepsis Screening Result: No Definite Risk - Focused Exam Vital Signs: Vital Signs Temp Pulse Resp BP Pulse Ox 09/10/19 03:01 97.9 F 50 L 14 115/53 L 98 09/09/19 21:17 98.1 F 58 L 12 121/64 98 Date Exam was Performed: 09/10/19 Time Exam was Performed: 12:28 - Problem List & Annotations (1) Atrial fibrillation with RVR SNOMED Code(s): 605784563008272 Code(s): I48.91 - UNSPECIFIED ATRIAL FIBRILLATION Status: Resolved Priority: High Current Visit: Yes (2) Dehydration SNOMED Code(s): 97897427 Code(s): E86.0 - DEHYDRATION Status: Acute Priority: High Current Visit : Yes (3) Elevated liver enzymes SNOMED Code(s): 452071137 Code(s): R74.8 - ABNORMAL LEVELS OF OTHER SERUM ENZYMES Status: Acute Priority: High Current Visit: Yes (4) Renal insufficiency SNOMED Code(s): 716270373, 077367920 Code(s): N28.9 - DISORDER OF KIDNEY AND URETER, UNSPECIFIED Status: Acute Priority: High Current Visit: Yes (5) Bilateral conjunctivitis SNOMED Code(s): 0576445 Code(s): H10.9 - UNSPECIFIED CONJUNCTIVITIS Status: Resolved Priority: High Current Visit: Yes Qualifiers: Conjunctivitis type: unspecified Qualified Code(s): H10.9 - Unspecified conjunctivitis (6) Chronic alcohol use SNOMED Code(s): 960518 Code(s): Z72.89 - OTHER PROBLEMS RELATED TO LIFESTYLE Status: Acute Priority: High Current Visit: Yes (7) Depression SNOMED Code(s): 36839562 Code(s): F32.9 - MAJOR DEPRESSIVE DISORDER, SINGLE EPISODE, UNSPECIFIED Status: Acute Priority: High Current Visit: Yes Qualifiers: Depression Type: other depression Qualified Code(s): F32.89 - Other specified depressive episodes (8) Tobacco use disorder SNOMED Code(s): 919647244 Code(s): F17.200 - NICOTINE DEPENDENCE, UNSPECIFIED, UNCOMPLICATED Status: Acute Priority: High Current Visit: Yes (9) Macrocytic anemia SNOMED Code(s): 48016628 Code(s): D53.9 - NUTRITIONAL ANEMIA, UNSPECIFIED Status: Acute Priority: High Current Visit: Yes (10) Unsteady gait SNOMED Code(s): 791532057, 278442730 Code(s): R26.81 - UNSTEADINESS ON FEET Status: Acute Priority: High Current Visit: Yes (11) Elevated ferritin SNOMED Code(s): 618793028, 874191465 Code(s): R79.89 - OTHER SPECIFIED ABNORMAL FINDINGS OF BLOOD CHEMISTRY Status: Acute Priority: High Current Visit: Yes (12) Elevated vitamin B12 level SNOMED Code(s): 406636843, 378745835 Code(s): R74.8 - ABNORMAL LEVELS OF OTHER SERUM ENZYMES Status: Acute Priority: High Current Visit: Yes (13) Iron deficiency SNOMED Code(s): 15484362 Code(s): E61.1 - IRON DEFICIENCY Status: Acute Priority: High Current Visit: Yes (14) Dysuria SNOMED Code(s): 84331939 Code(s): R30.0 - DYSURIA Status: Acute Priority: High Current Visit: Yes - Problem List Review Problem List Initiated/Reviewed/Updated: Yes - My Orders Last 24 Hours: My Active Orders 09/09/19 12:10 Ambulate [RC] QID - Plan Plan:: Assessment 79-year-old male with alcoholism admitted with atrial fibrillation and RVR. * Presenting heart rate in the 120s to 130s. * Now in sinus rhythm * Significantly hypovolemic secondary to poor p.o. intake. Blood pressure improved with fluids * Hypovolemia has resolved * Off Cardizem drip * Continues in sinus rhythm and rate controlled with heart rate in the low 60s- 70s not on a rate controlling medication * EKG: September 02, 2019: Sinus rhythm ventricular rate 59, left bundle branch block * Patient is in sinus rhythm * Echocardiogram showed normal left ventricular ejection fraction of 50 to 55%. Pseudo-normal, grade 2, pattern of LV diastolic filling. Mid inferoseptal segment is abnormal. Normal right ventricular systolic function. Aortic valve is structurally normal and tricuspid. Mild mitral valve regurgitation. Mild tricuspid valve regurgitation. The right ventricular systolic pressure is mildly elevated at 42.3. * Stopped Eliquis 5 mg twice daily. Patient likely went into a single episode of A. fib due to his alcoholism. Recommendation is to wait for another episode before continuing anticoagulation. Alcoholism * NO signs of withdrawal * Drinks 4-5 beers and 1/3 bottle of rum daily * Last drink 4 to 5 days ago * Patient complained of difficulty sleeping, likely secondary to alcoholism * Ativan only had marginal improvement in sleep last night. Tobacco use: [id number] history * Likely COPD with possible exacerbation * Lung sounds significant for diffuse rhonchi and wheezes * Oxygen saturation 97% on room air * Normal chest x-ray * Doing well on nicotine patch. * Finish 5 days of Augment Bilateral conjunctivitis, right eye worse than left * Polytrim 1 drop each eye every 4 hours while awake; Finished treatment yesterday Hypertension, resolved * Last few blood pressures have been low. Held lisinopril. * Currently Lisinopril to 10 mg daily - stop * Currently hydrochlorothiazide 12.5 mg daily - continue Unsteady gait, improving * Likely neuropathy exacerbating secondary to his alcoholism * Physical therapy consulted Macrocytic anemia * Ferritin and vitamin B12 are both elevated, likely secondary to acute phase reactant. Iron is low at 52 and percent saturation is 35% * Anemia likely secondary to alcoholism and iron deficiency Elevated LFTs * Right upper quadrant ultrasound normal * Viral hepatitis panel negative * Likely secondary to alcoholism Depression * With insomnia * Insomnia is currently treated with temazepam which is not the best choice for someone with depression, but may improve his ETOH craving. He states he is not craving ETOH at this time. Dysuria * Reports pain with urination * WBC elevated today * Check UA Plan * Stop lisinopril 10 mg daily * Continue hydrochlorothiazide 12.5 mg daily * Start mirtazapine 15 mg qhs * Change Temazepam to 7.5 mg nightly prn, continue melatonin 9 mg at night * Albuterol/ipratropium bromide nebulizer every twice daily * Albuterol every 2 hours as needed * Stop Augmentin twice daily - completed treatment * Thiamine 100 mg p.o. * Folic acid 1 mg at bedtime * Polytrim 1 drop each eye every 4 hours while awake - discontinue today * Hepatitis C antibody is negative * CODE STATUS: Full code * VTE prophylaxis with Lovenox * Prognosis good * Consult case management for placement * Length of stay greater than 96 hours secondary to difficulties placing patient in [place] [facility] * Discharge pending placement Sunday 09/10 to [facility] in [place] <Jeff Munson - Last Filed: 09/10/19 13:00> - Patient Data Vitals - Most Recent: Last Vital Signs Temp 36.5 C 09/10/19 08:46 Pulse 51 L 09/10/19 08:46 Resp 16 09/10/19 08:46 BP 120/74 09/10/19 08:46 Pulse Ox 100 09/10/19 08:46 I&O - Last 24 Hours: Intake & Output 09/09/19 09/10/19 09/10/19 22:59 06:59 14:59 Intake Total 510 600 240 Output Total 300 825 Balance 210 -225 240 Lab Results Last 24 Hours: Laboratory Results - last 24 hr 09/10/19 09/10/19 09/10/19 Range/Units 05:42 05:42 11:08 WBC 14.09 H (4.23-9.07) K/mm3 RBC 3.84 L (4.63-6.08) M/mm3 Hgb 13.8 (13.7-17.5) gm/dl Hct 41.2 (40.1-51.0) % MCV 107.3 H (79.0-92.2) fl MCH 35.9 H (25.7-32.2) pg MCHC 33.5 (32.2-35.5) g/dl RDW Std Deviation 51.1 H (35.1-43.9) fL Plt Count 340 H D (163-337) K/mm3 MPV 10.1 (9.4-12.3) fl Neut % (Auto) 23.5 L (34.0-67.9) % Lymph % (Auto) 63.9 H (21.8-53.1) % [place] % (Auto) 10.5 (5.3-12.2) % Eos % (Auto) 1.3 (0.8-7.0) Baso % (Auto) 0.4 (0.1-1.2) % Neut # (Auto) 3.32 (1.78-5.38) K/mm3 Lymph # (Auto) 9.00 H (1.32-3.57) K/mm3 [place] # (Auto) 1.48 H (0.30-0.82) K/mm3 Eos # (Auto) 0.19 (0.04-0.54) K/mm3 Baso # (Auto) 0.05 (0.01-0.08) K/mm3 Manual Slide Review Abnormal smear Sodium 143 (136-145) mEq/L Potassium 4.2 (3.5-5.1) mEq/L Chloride 106 (98-107) mEq/L Carbon Dioxide 27 (21-32) mEq/L Anion Gap 14.2 (5-15) BUN 13 (7-18) mg/dL Creatinine 1.2 (0.7-1.3) mg/dL Est Cr Clr Drug Dosing 50.73 mL/min Estimated GFR (MDRD) 59 (>60) mL/min BUN/Creatinine Ratio 10.8 L (14-18) Glucose 114 (83-115) mg/dL Calcium 9.0 (8.5-10.1) mg/dL Magnesium 1.8 (1.8-2.4) mg/dl Total Bilirubin 0.7 (0.2-1.0) mg/dL AST 105 H (15-37) U/L ALT 212 H (16-63) U/L Alkaline Phosphatase 107 (46-116) U/L Total Protein 6.1 L (6.4-8.2) g/dl Albumin 3.0 L (3.4-5.0) g/dl Globulin 3.1 gm/dL Albumin/Globulin Ratio 1.0 (1-2) Urine Color Yellow (Yellow) Urine Appearance Clear (Clear) Urine pH 6.0 (5.0-8.0) Ur Specific [place] 1.025 (1.005-1.030) Urine Protein Negative (Negative) Urine Glucose (UA) Negative (Negative) Urine Ketones Negative (Negative) Urine Occult Blood Negative (Negative) Urine Nitrite Negative (Negative) Urine Bilirubin Negative (Negative) Urine Urobilinogen 0.2 (0.2-1.0) Ur Leukocyte Esterase Negative (Negative) Med Orders - Current: Current Medications Acetaminophen (Tylenol) 650 mg PO Q4H PRN PRN Reason: Pain (Mild 1-3)/fever Albuterol (Proventil Neb Soln) 2.5 mg NEB Q2H PRN PRN Reason: Shortness Of Breath/wheezing Albuterol/Ipratropium (Duoneb 3.0-0.5 Mg/3 Ml) 3 ml NEB BID PRN PRN Reason: Shortness of Breath Enoxaparin Sodium (Lovenox) 40 mg SUBCUT Q24H [facility] Last Admin: 09/09/19 17:18 Dose: 40 mg Folic Acid (Folic Acid) 1 mg PO BEDTIME [facility] Last Admin: 09/09/19 21:19 Dose: 1 mg Hydrochlorothiazide (Hydrochlorothiazide) 12.5 mg PO DAILY [facility] Last Admin: 09/10/19 08:45 Dose: 12.5 mg Lorazepam (Ativan) 1 - 3 mg PO Q1H PRN; Protocol PRN Reason: Withdrawal Symptoms Melatonin (Melatonin) 9 mg PO BEDTIME PRN PRN Reason: Sleep Last Admin: 09/09/19 21:19 Dose: 9 mg Mirtazapine (Remeron) 15 mg PO BEDTIME [facility] Last Admin: 09/09/19 21:18 Dose: 15 mg Miscellaneous Information (Remove Patch) 1 ea TRDERM DAILY [facility] Last Admin: 09/10/19 08:48 Dose: 1 ea Multivitamins (Thera) 1 each PO DAILY [facility] Last Admin: 09/10/19 08:45 Dose: 1 each Nicotine (Habitrol) 21 mg TRDERM DAILY [facility] Last Admin: 09/10/19 08:49 Dose: 21 mg Sodium Chloride (Saline Flush) 10 ml FLUSH ASDIRECTED PRN PRN Reason: Keep Vein Open Tamsulosin HCl (Flomax) 0.4 mg PO PCBREAKFAST [facility] Last Admin: 09/10/19 09:47 Dose: 0.4 mg Temazepam (Restoril) 7.5 mg PO BEDTIME PRN PRN Reason: Insomnia Last Admin: 09/09/19 21:18 Dose: 7.5 mg Thiamine HCl (Vitamin B-1) 100 mg PO DAILY [facility] Last Admin: 09/10/19 08:45 Dose: 100 mg Vitamin B Complex/Vit C/Folic Acid (Nephrocaps) 1 tab PO DAILY [facility] Last Admin: 09/10/19 08:45 Dose: 1 tab Discontinued Medications Albuterol/Ipratropium (Duoneb 3.0-0.5 Mg/3 Ml) 3 ml NEB Q6H [facility] Last Admin: 09/02/19 13:59 Dose: 3 ml Albuterol/Ipratropium (Duoneb 3.0-0.5 Mg/3 Ml) 3 ml NEB QIDRT [facility] Last Admin: 09/03/19 06:13 Dose: 3 ml Albuterol/Ipratropium (Duoneb 3.0-0.5 Mg/3 Ml) 3 ml NEB BIDRT [facility] Last Admin: 09/03/19 20:47 Dose: 3 ml Albuterol/Ipratropium (Duoneb 3.0-0.5 Mg/3 Ml) 3 ml NEB BID [facility] Last Admin: 09/05/19 20:20 Dose: Not Given Amoxicillin/Clavulanate Potassium (Augmentin 875 Mg/125 Mg) 1 tab PO Q12HR [facility] Last Admin: 09/06/19 09:20 Dose: 1 tab Apixaban (Eliquis) 5 mg PO BID [facility] Last Admin: 09/04/19 09:21 Dose: 5 mg Bisacodyl (Dulcolax) 10 mg PO ONETIME ONE Stop: 09/08/19 16:01 Last Admin: 09/08/19 16:04 Dose: 10 mg Bisacodyl (Dulcolax) 10 mg RECTAL ONETIME ONE Stop: 09/09/19 06:31 Last Admin: 09/09/19 06:07 Dose: 10 mg Enoxaparin Sodium (Lovenox) 40 mg SUBCUT Q24H [facility] Last Admin: 09/06/19 17:22 Dose: Not Given Sodium Chloride (Normal Saline) Confirm Administered Dose 1,000 mls @ as directed .ROUTE .STK-MED ONE Stop: 09/01/19 14:49 Last Admin: 09/01/19 14:54 Dose: Not Given Sodium Chloride (Normal Saline) 1,000 mls @ 1,000 mls/hr IV .BOLUS [facility] Last Admin: 09/01/19 14:55 Dose: 1,000 mls/hr Sodium Chloride (Normal Saline) 1,000 mls @ 1,000 mls/hr IV ONETIME ONE Stop: 09/01/19 17:26 Last Admin: 09/01/19 16:34 Dose: 1,000 mls/hr Lactated Ringer's (Ringers, Lactated) 1,000 mls @ 150 mls/hr IV ASDIRECTED [facility] Last Admin: 09/01/19 17:43 Dose: 150 mls/hr Diltiazem HCl 100 mg/ Sodium (Chloride) 100 mls @ 5 mls/hr IV TITRATE HAILEE; Protocol Last Titration: 09/02/19 01:28 Dose: 2.5 mg/hr, 2.5 mls/hr Lactated Ringer's (Ringers, Lactated) 1,000 mls @ 100 mls/hr IV ASDIRECTED [facility] Last Admin: 09/02/19 10:10 Dose: 100 mls/hr Potassium Chloride 10 meq/ (Premix) 100 mls @ 100 mls/hr IV Q1H [facility] Stop: 09/02/19 03:29 Last Admin: 09/02/19 02:25 Dose: 100 mls/hr Pantoprazole Sodium 40 mg/ (Sodium Chloride) 100 mls @ 200 mls/hr IV Q12H [facility] Stop: 09/03/19 00:14 Magnesium Sulfate 4 gm/ Premix 50 mls @ 12.5 mls/hr IV ONETIME ONE Stop: 09/03/19 13:16 Last Admin: 09/03/19 09:55 Dose: 12.5 mls/hr Lisinopril (Prinivil) 10 mg PO DAILY [facility] Last Admin: 09/04/19 09:20 Dose: 10 mg Lisinopril (Prinivil) 10 mg PO BID [facility] Last Admin: 09/05/19 21:50 Dose: Not Given Lisinopril (Prinivil) 10 mg PO DAILY [facility] Last Admin: 09/06/19 09:24 Dose: Not Given Lorazepam (Ativan) 1 mg PO BEDTIME [facility] Last Admin: 09/01/19 21:56 Dose: 1 mg Magnesium Hydroxide (Milk Of Magnesia) 30 ml PO ONETIME ONE Stop: 09/07/19 14:01 Last Admin: 09/07/19 14:58 Dose: 30 ml Pantoprazole Sodium (Protonix) 40 mg PO BIDAC [facility] Last Admin: 09/04/19 05:07 Dose: 40 mg Pantoprazole Sodium (Protonix Iv) 40 mg IVPUSH Q12H [facility] Stop: 09/03/19 00:01 Last Admin: 09/03/19 00:02 Dose: Not Given Polymyxin/Trimethoprim Sulfate (Polytrim Ophth Soln) [facility] Stop: 09/09/19 23:00 Last Admin: 09/09/19 21:20 Dose: 1 drop Potassium Chloride (Klor-Con M20) 40 meq PO BID [facility] Stop: 09/02/19 21:01 Last Admin: 09/02/19 19:59 Dose: 40 meq Sodium Chloride (Saline Flush) 10 ml FLUSH ASDIRECTED PRN PRN Reason: Keep Vein Open Last Admin: 09/01/19 14:59 Dose: 10 ml Temazepam (Restoril) 15 mg PO BEDTIME [facility] Last Admin: 09/05/19 21:50 Dose: 15 mg Thiamine HCl (Vitamin B-1) 100 mg IVPUSH DAILY [facility] Last Admin: 09/03/19 08:45 Dose: 100 mg Sepsis Event Note - Focused Exam Vital Signs: Vital Signs Temp Pulse Resp BP Pulse Ox 09/10/19 08:46 36.5 C 51 L 16 120/74 100 09/10/19 03:01 36.6 C 50 L 14 115/53 L 98 Date Exam was Performed: 09/10/19 Time Exam was Performed: 13:00 - My Orders Last 24 Hours: My Active Orders 09/10/19 09:00 Biotin/FA/Vit C/Vit B Complex [Nephrocaps] 1 tab PO DAILY Multivitamins,Therapeutic [Thera] 1 each PO DAILY 09/10/19 10:00 Tamsulosin [Flomax] 0.4 mg PO PCBREAKFAST
[2019-09-10] MEDS: Tamsulosin 0.4 MG Cap.ER PO SCH (09:47)
[2019-09-10] MEDS: Enoxaparin 40 MG/0.4 ML Syringe SUBCUT SCH (17:24)
[2019-09-10] MEDS: Melatonin 3 MG Tab PO PRN (20:47)
[2019-09-10] MEDS: Temazepam 7.5 MG Cap PO PRN (20:47)
[2019-09-10] MEDS: Mirtazapine 15 MG Tab PO SCH (20:47)
[2019-09-10] MEDS: Folic Acid 1 MG Tab PO SCH (20:47)
[2019-09-11] MEDS ORDERED: Magnesium Sulfate/Water 2 GM in Premix Bag 1 BAG IV ONE (07:17)
[2019-09-11] MEDS: Biotin/Folic Acid/Vitamin C/Vitamin B Complex Tab PO SCH (08:14)
[2019-09-11] MEDS: Thiamine 100 MG Tab PO SCH (08:14)
[2019-09-11] MEDS: Hydrochlorothiazide 12.5 MG Cap PO SCH (08:15)
[2019-09-11] MEDS: Multivitamins,Therapeutic Tab PO SCH (08:15)
[2019-09-11] MEDS: Nicotine 21 MG/24 Hr Patch TRDERM SCH (08:17)
[2019-09-11] MEDS ORDERED: Magnesium Oxide 400 MG Tab PO ONE (08:46)
[2019-09-11] MEDS: Tamsulosin 0.4 MG Cap.ER PO SCH (09:17)
--- NOTE | 2019-09-11 11:43 | PCM.PN ---
- General Info Date of Service: 09/11/19 Admission Dx/Problem (Free Text): Admission Diagnosis/Problem Admission Diagnosis/Problem Atrial fibrillation Functional Status: Reports: Pain Controlled, Tolerating Diet, Ambulating, Urinating. Denies: New Symptoms - Review of Systems General: Reports: Weakness. Denies: Fever, Fatigue, Malaise, Chills HEENT: Reports: No Symptoms. Denies: Sore Throat Pulmonary: Reports: No Symptoms. Denies: Shortness of Breath, Pleuritic Chest Pain, Cough, Sputum, Wheezing Cardiovascular: Reports: No Symptoms. Denies: Chest Pain, Palpitations, Dyspnea on Exertion Gastrointestinal: Reports: No Symptoms. Denies: Abdominal Pain, Constipation, Nausea, Vomiting Genitourinary: Reports: No Symptoms. Denies: Pain Musculoskeletal: Reports: No Symptoms Skin: Reports: No Symptoms. Denies: Cyanosis Neurological: Reports: No Symptoms. Denies: Confusion Psychiatric: Reports: Depression - Patient Data Vitals - Most Recent: Last Vital Signs Temp 98.2 F 09/11/19 08:12 Pulse 61 09/11/19 08:12 Resp 20 09/11/19 08:12 BP 122/64 09/11/19 08:12 Pulse Ox 100 09/11/19 08:12 Weight - Most Recent: 159 lb 4.8 oz I&O - Last 24 Hours: Intake & Output 09/10/19 09/11/19 09/11/19 22:59 06:59 14:59 Intake Total 1080 520 240 Output Total 400 625 Balance 680 -105 240 Lab Results Last 24 Hours: Laboratory Results - last 24 hr 09/10/19 09/11/19 09/11/19 Range/Units 11:08 05:25 05:25 WBC 13.57 H (4.23-9.07) K/mm3 RBC 3.68 L (4.63-6.08) M/mm3 Hgb 13.5 L (13.7-17.5) gm/dl Hct 38.5 L (40.1-51.0) % MCV 104.6 H (79.0-92.2) fl MCH 36.7 H (25.7-32.2) pg MCHC 35.1 (32.2-35.5) g/dl RDW Std Deviation 47.6 H (35.1-43.9) fL Plt Count 307 (163-337) K/mm3 MPV 10.0 (9.4-12.3) fl Neut % (Auto) 24.9 L (34.0-67.9) % Lymph % (Auto) 63.6 H (21.8-53.1) % [place] % (Auto) 9.9 (5.3-12.2) % Eos % (Auto) 1.2 (0.8-7.0) Baso % (Auto) 0.4 (0.1-1.2) % Neut # (Auto) 3.38 (1.78-5.38) K/mm3 Lymph # (Auto) 8.63 H (1.32-3.57) K/mm3 [place] # (Auto) 1.34 H (0.30-0.82) K/mm3 Eos # (Auto) 0.16 (0.04-0.54) K/mm3 Baso # (Auto) 0.06 (0.01-0.08) K/mm3 Manual Slide Review Abnormal smear Sodium 141 (136-145) mEq/L Potassium 3.7 (3.5-5.1) mEq/L Chloride 105 (98-107) mEq/L Carbon Dioxide 25 (21-32) mEq/L Anion Gap 14.7 (5-15) BUN 12 (7-18) mg/dL Creatinine 1.2 (0.7-1.3) mg/dL Est Cr Clr Drug Dosing 50.73 mL/min Estimated GFR (MDRD) 59 (>60) mL/min BUN/Creatinine Ratio 10.0 L (14-18) Glucose 114 (83-115) mg/dL Calcium 9.1 (8.5-10.1) mg/dL Magnesium 1.7 L (1.8-2.4) mg/dl Urine Color Yellow (Yellow) Urine Appearance Clear (Clear) Urine pH 6.0 (5.0-8.0) Ur Specific [place] 1.025 (1.005-1.030) Urine Protein Negative (Negative) Urine Glucose (UA) Negative (Negative) Urine Ketones Negative (Negative) Urine Occult Blood Negative (Negative) Urine Nitrite Negative (Negative) Urine Bilirubin Negative (Negative) Urine Urobilinogen 0.2 (0.2-1.0) Ur Leukocyte Esterase Negative (Negative) Urine RBC Not seen (0-5) /hpf Urine WBC 0-5 (0-5) /hpf Ur Squamous Epith Cells Not seen (0-5) /hpf Urine Bacteria Moderate H (FEW) /hpf Urine Mucus Rare (FEW) /hpf Med Orders - Current: Current Medications Acetaminophen (Tylenol) 650 mg PO Q4H PRN PRN Reason: Pain (Mild 1-3)/fever Albuterol (Proventil Neb Soln) 2.5 mg NEB Q2H PRN PRN Reason: Shortness Of Breath/wheezing Albuterol/Ipratropium (Duoneb 3.0-0.5 Mg/3 Ml) 3 ml NEB BID PRN PRN Reason: Shortness of Breath Enoxaparin Sodium (Lovenox) 40 mg SUBCUT Q24H [facility] Last Admin: 09/10/19 17:24 Dose: 40 mg Folic Acid (Folic Acid) 1 mg PO BEDTIME HAILEE Last Admin: 09/10/19 20:47 Dose: 1 mg Hydrochlorothiazide (Hydrochlorothiazide) 12.5 mg PO DAILY [facility] Last Admin: 09/11/19 08:15 Dose: 12.5 mg Lorazepam (Ativan) 1 - 3 mg PO Q1H PRN; Protocol PRN Reason: Withdrawal Symptoms Melatonin (Melatonin) 9 mg PO BEDTIME PRN PRN Reason: Sleep Last Admin: 09/10/19 20:47 Dose: 9 mg Mirtazapine (Remeron) 15 mg PO BEDTIME HAILEE Last Admin: 09/10/19 20:47 Dose: 15 mg Miscellaneous Information (Remove Patch) 1 ea TRDERM DAILY [facility] Last Admin: 09/11/19 08:16 Dose: 1 ea Multivitamins (Thera) 1 each PO DAILY [facility] Last Admin: 09/11/19 08:15 Dose: 1 each Nicotine (Habitrol) 21 mg TRDERM DAILY [facility] Last Admin: 09/11/19 08:17 Dose: 21 mg Sodium Chloride (Saline Flush) 10 ml FLUSH ASDIRECTED PRN PRN Reason: Keep Vein Open Tamsulosin HCl (Flomax) 0.4 mg PO PCBREAKFAST [facility] Last Admin: 09/11/19 09:17 Dose: 0.4 mg Temazepam (Restoril) 7.5 mg PO BEDTIME PRN PRN Reason: Insomnia Last Admin: 09/10/19 20:47 Dose: 7.5 mg Thiamine HCl (Vitamin B-1) 100 mg PO DAILY [facility] Last Admin: 09/11/19 08:14 Dose: 100 mg Vitamin B Complex/Vit C/Folic Acid (Nephrocaps) 1 tab PO DAILY [facility] Last Admin: 09/11/19 08:14 Dose: 1 tab Discontinued Medications Albuterol/Ipratropium (Duoneb 3.0-0.5 Mg/3 Ml) 3 ml NEB Q6H [facility] Last Admin: 09/02/19 13:59 Dose: 3 ml Albuterol/Ipratropium (Duoneb 3.0-0.5 Mg/3 Ml) 3 ml NEB QIDRT [facility] Last Admin: 09/03/19 06:13 Dose: 3 ml Albuterol/Ipratropium (Duoneb 3.0-0.5 Mg/3 Ml) 3 ml NEB BIDRT [facility] Last Admin: 09/03/19 20:47 Dose: 3 ml Albuterol/Ipratropium (Duoneb 3.0-0.5 Mg/3 Ml) 3 ml NEB BID [facility] Last Admin: 09/05/19 20:20 Dose: Not Given Amoxicillin/Clavulanate Potassium (Augmentin 875 Mg/125 Mg) 1 tab PO Q12HR [facility] Last Admin: 09/06/19 09:20 Dose: 1 tab Apixaban (Eliquis) 5 mg PO BID [facility] Last Admin: 09/04/19 09:21 Dose: 5 mg Bisacodyl (Dulcolax) 10 mg PO ONETIME ONE Stop: 09/08/19 16:01 Last Admin: 09/08/19 16:04 Dose: 10 mg Bisacodyl (Dulcolax) 10 mg RECTAL ONETIME ONE Stop: 09/09/19 06:31 Last Admin: 09/09/19 06:07 Dose: 10 mg Enoxaparin Sodium (Lovenox) 40 mg SUBCUT Q24H [facility] Last Admin: 09/06/19 17:22 Dose: Not Given Sodium Chloride (Normal Saline) Confirm Administered Dose 1,000 mls @ as directed .ROUTE .STK-MED ONE Stop: 09/01/19 14:49 Last Admin: 09/01/19 14:54 Dose: Not Given Sodium Chloride (Normal Saline) 1,000 mls @ 1,000 mls/hr IV .BOLUS [facility] Last Admin: 09/01/19 14:55 Dose: 1,000 mls/hr Sodium Chloride (Normal Saline) 1,000 mls @ 1,000 mls/hr IV ONETIME ONE Stop: 09/01/19 17:26 Last Admin: 09/01/19 16:34 Dose: 1,000 mls/hr Lactated Ringer's (Ringers, Lactated) 1,000 mls @ 150 mls/hr IV ASDIRECTED [facility] Last Admin: 09/01/19 17:43 Dose: 150 mls/hr Diltiazem HCl 100 mg/ Sodium (Chloride) 100 mls @ 5 mls/hr IV TITRATE HAILEE; Protocol Last Titration: 09/02/19 01:28 Dose: 2.5 mg/hr, 2.5 mls/hr Lactated Ringer's (Ringers, Lactated) 1,000 mls @ 100 mls/hr IV ASDIRECTED [facility] Last Admin: 09/02/19 10:10 Dose: 100 mls/hr Potassium Chloride 10 meq/ (Premix) 100 mls @ 100 mls/hr IV Q1H HAILEE Stop: 09/02/19 03:29 Last Admin: 09/02/19 02:25 Dose: 100 mls/hr Pantoprazole Sodium 40 mg/ (Sodium Chloride) 100 mls @ 200 mls/hr IV Q12H [facility] Stop: 09/03/19 00:14 Magnesium Sulfate 4 gm/ Premix 50 mls @ 12.5 mls/hr IV ONETIME ONE Stop: 09/03/19 13:16 Last Admin: 09/03/19 09:55 Dose: 12.5 mls/hr Magnesium Sulfate 2 gm/ Premix 50 mls @ 25 mls/hr IV ONETIME ONE Stop: 09/11/19 09:16 Last Admin: 09/11/19 09:18 Dose: Not Given Lisinopril (Prinivil) 10 mg PO DAILY [facility] Last Admin: 09/04/19 09:20 Dose: 10 mg Lisinopril (Prinivil) 10 mg PO BID [facility] Last Admin: 09/05/19 21:50 Dose: Not Given Lisinopril (Prinivil) 10 mg PO DAILY [facility] Last Admin: 09/06/19 09:24 Dose: Not Given Lorazepam (Ativan) 1 mg PO BEDTIME [facility] Last Admin: 09/01/19 21:56 Dose: 1 mg Magnesium Hydroxide (Milk Of Magnesia) 30 ml PO ONETIME ONE Stop: 09/07/19 14:01 Last Admin: 09/07/19 14:58 Dose: 30 ml Magnesium Oxide (Magnesium Oxide) 400 mg PO ONETIME ONE Stop: 09/11/19 08:47 Last Admin: 09/11/19 09:17 Dose: 400 mg Pantoprazole Sodium (Protonix) 40 mg PO BIDAC [facility] Last Admin: 09/04/19 05:07 Dose: 40 mg Pantoprazole Sodium (Protonix Iv) 40 mg IVPUSH Q12H [facility] Stop: 09/03/19 00:01 Last Admin: 09/03/19 00:02 Dose: Not Given Polymyxin/Trimethoprim Sulfate (Polytrim Ophth Soln) 0 ml EYEBOTH Q4HWA [facility] Stop: 09/09/19 23:00 Last Admin: 09/09/19 21:20 Dose: 1 drop Potassium Chloride (Klor-Con M20) 40 meq PO BID [facility] Stop: 09/02/19 21:01 Last Admin: 09/02/19 19:59 Dose: 40 meq Sodium Chloride (Saline Flush) 10 ml FLUSH ASDIRECTED PRN PRN Reason: Keep Vein Open Last Admin: 09/01/19 14:59 Dose: 10 ml Temazepam (Restoril) 15 mg PO BEDTIME [facility] Last Admin: 09/05/19 21:50 Dose: 15 mg Thiamine HCl (Vitamin B-1) 100 mg IVPUSH DAILY [facility] Last Admin: 09/03/19 08:45 Dose: 100 mg - Exam Quality Assessment: DVT Prophylaxis General: Alert, Oriented, Cooperative, No Acute Distress HEENT: Pupils Equal, Pupils Reactive, Mucous Membr. Moist/Painter Neck: Supple, Trachea Midline Lungs: Clear to Auscultation, Normal Respiratory Effort Cardiovascular: Regular Rhythm, Bradycardia GI/Abdominal Exam: Normal Bowel Sounds, Soft, Non-Tender, No Organomegaly, No Distention (Male) Exam: Deferred Back Exam: Normal Inspection, Full Range of Motion Extremities: Normal Inspection, Normal Range of Motion, Non-Tender, No Pedal Edema, Normal Capillary Refill Skin: Warm, Dry, Intact Neurological: No New Focal Deficit Psy/Mental Status: Alert, Anxious, Depressed Sepsis Event Note - Evaluation Sepsis Screening Result: No Definite Risk - Focused Exam Vital Signs: Vital Signs Temp Pulse Resp BP Pulse Ox 09/11/19 08:12 98.2 F 61 20 122/64 100 09/11/19 04:07 98.1 F 48 L 16 124/65 98 Date Exam was Performed: 09/11/19 Time Exam was Performed: 12:40 - Problem List & Annotations (1) Atrial fibrillation with RVR SNOMED Code(s): 121107987470633 Code(s): I48.91 - UNSPECIFIED ATRIAL FIBRILLATION Status: Resolved Priority: High Current Visit: Yes (2) Dehydration SNOMED Code(s): 27581342 Code(s): E86.0 - DEHYDRATION Status: Resolved Priority: High Current Visit: Yes (3) Elevated liver enzymes SNOMED Code(s): 545569444 Code(s): R74.8 - ABNORMAL LEVELS OF OTHER SERUM ENZYMES Status: Resolved Priority: High Current Visit: Yes (4) Renal insufficiency SNOMED Code(s): 177611981, 597482173 Code(s): N28.9 - DISORDER OF KIDNEY AND URETER, UNSPECIFIED Status: Acute Priority: High Current Visit: Yes (5) Bilateral conjunctivitis SNOMED Code(s): 1307575 Code(s): H10.9 - UNSPECIFIED CONJUNCTIVITIS Status: Resolved Priority: High Current Visit: Yes Qualifiers: Conjunctivitis type: unspecified Qualified Code(s): H10.9 - Unspecified conjunctivitis (6) Chronic alcohol use SNOMED Code(s): 281812 Code(s): Z72.89 - OTHER PROBLEMS RELATED TO LIFESTYLE Status: Acute Priority: High Current Visit: Yes (7) Depression SNOMED Code(s): 15219709 Code(s): F32.9 - MAJOR DEPRESSIVE DISORDER, SINGLE EPISODE, UNSPECIFIED Status: Acute Priority: High Current Visit: Yes Qualifiers: Depression Type: other depression Qualified Code(s): F32.89 - Other specified depressive episodes (8) Tobacco use disorder SNOMED Code(s): 549375478 Code(s): F17.200 - NICOTINE DEPENDENCE, UNSPECIFIED, UNCOMPLICATED Status: Acute Priority: High Current Visit: Yes (9) Macrocytic anemia SNOMED Code(s): 81211647 Code(s): D53.9 - NUTRITIONAL ANEMIA, UNSPECIFIED Status: Acute Priority: High Current Visit: Yes (10) Unsteady gait SNOMED Code(s): 672270512, 863606884 Code(s): R26.81 - UNSTEADINESS ON FEET Status: Acute Priority: High Current Visit: Yes (11) Elevated ferritin SNOMED Code(s): 666946274, 298836912 Code(s): R79.89 - OTHER SPECIFIED ABNORMAL FINDINGS OF BLOOD CHEMISTRY Status: Acute Priority: High Current Visit: Yes (12) Elevated vitamin B12 level SNOMED Code(s): 576662287, 820629121 Code(s): R74.8 - ABNORMAL LEVELS OF OTHER SERUM ENZYMES Status: Acute Priority: High Current Visit: Yes (13) Iron deficiency SNOMED Code(s): 56339880 Code(s): E61.1 - IRON DEFICIENCY Status: Acute Priority: High Current Visit: Yes (14) Dysuria SNOMED Code(s): 52442315 Code(s): R30.0 - DYSURIA Status: Acute Priority: High Current Visit: Yes (15) Bradycardia SNOMED Code(s): 72859581 Code(s): R00.1 - BRADYCARDIA, UNSPECIFIED Status: Chronic Priority: Medium Current Visit: Yes - Problem List Review Problem List Initiated/Reviewed/Updated: Yes - My Orders Last 24 Hours: My Active Orders 09/10/19 11:08 CULTURE URINE [RM] Routine 09/12/19 05:11 BASIC METABOLIC PANEL,BMP [CHEM] AM CBC WITH AUTO DIFF [HEME] AM MAGNESIUM [CHEM] AM 09/13/19 05:11 BASIC METABOLIC PANEL,BMP [CHEM] AM CBC WITH AUTO DIFF [HEME] AM MAGNESIUM [CHEM] AM 09/14/19 05:11 BASIC METABOLIC PANEL,BMP [CHEM] AM CBC WITH AUTO DIFF [HEME] AM MAGNESIUM [CHEM] AM - Plan Plan:: Assessment 79-year-old male with alcoholism admitted with atrial fibrillation and RVR. * Presenting heart rate in the 120s to 130s. * Now in sinus rhythm * Significantly hypovolemic secondary to poor p.o. intake. Blood pressure improved with fluids * Hypovolemia has resolved * Off Cardizem drip * Continues in sinus rhythm and rate controlled with heart rate in the low 60s- 70s not on a rate controlling medication * EKG: September 02, 2019: Sinus rhythm ventricular rate 59, left bundle branch block * Patient is in sinus rhythm * Echocardiogram showed normal left ventricular ejection fraction of 50 to 55%. Pseudo-normal, grade 2, pattern of LV diastolic filling. Mid inferoseptal segment is abnormal. Normal right ventricular systolic function. Aortic valve is structurally normal and tricuspid. Mild mitral valve regurgitation. Mild tricuspid valve regurgitation. The right ventricular systolic pressure is mildly elevated at 42.3. * Stopped Eliquis 5 mg twice daily. Patient likely went into a single episode of A. fib due to his alcoholism. Recommendation is to wait for another episode before continuing anticoagulation. Alcoholism * NO signs of withdrawal * Drinks 4-5 beers and 1/3 bottle of rum daily * Last drink 4 to 5 days ago * Patient complained of difficulty sleeping, likely secondary to alcoholism * Ativan only had marginal improvement in sleep last night. Tobacco use: [id number]-[id number] history * Likely COPD with possible exacerbation * Lung sounds significant for diffuse rhonchi and wheezes * Oxygen saturation 97% on room air * Normal chest x-ray * Doing well on nicotine patch. * Finish 5 days of Augment Bilateral conjunctivitis, right eye worse than left * Polytrim 1 drop each eye every 4 hours while awake; Finished treatment yesterday Hypertension, resolved * Last few blood pressures have been low. Held lisinopril. * Currently Lisinopril to 10 mg daily - stop * Currently hydrochlorothiazide 12.5 mg daily - continue Unsteady gait, improving * Likely neuropathy exacerbating secondary to his alcoholism * Physical therapy consulted Macrocytic anemia * Ferritin and vitamin B12 are both elevated, likely secondary to acute phase reactant. Iron is low at 52 and percent saturation is 35% * Anemia likely secondary to alcoholism and iron deficiency Elevated LFTs * Right upper quadrant ultrasound normal * Viral hepatitis panel negative * Likely secondary to alcoholism Depression * With insomnia * Insomnia is currently treated with temazepam which is not the best choice for someone with depression, but may improve his ETOH craving. He states he is not craving ETOH at this time. Dysuria * Reports pain with urination * WBC mildly elevated * UA negative * Start flomax Hypomagnesemia * Magnesium 1.7 * Supplement Plan * Stop lisinopril 10 mg daily * Continue hydrochlorothiazide 12.5 mg daily * Start mirtazapine 15 mg qhs * Change Temazepam to 7.5 mg nightly prn, continue melatonin 9 mg at night * Albuterol/ipratropium bromide nebulizer every twice daily * Albuterol every 2 hours as needed * Stop Augmentin twice daily - completed treatment * Thiamine 100 mg p.o. * Folic acid 1 mg at bedtime * Polytrim 1 drop each eye every 4 hours while awake - discontinue today * Hepatitis C antibody is negative * CODE STATUS: Full code * VTE prophylaxis with Lovenox * Prognosis good * Consult case management for placement * Length of stay greater than 96 hours secondary to difficulties placing patient in alf facility * Discharge pending placement - medically stable
[2019-09-11] MEDS: Enoxaparin 40 MG/0.4 ML Syringe SUBCUT SCH (17:19)
[2019-09-11] MEDS: Folic Acid 1 MG Tab PO SCH (21:56)
[2019-09-11] MEDS: Temazepam 7.5 MG Cap PO PRN (21:56)
[2019-09-11] MEDS: Mirtazapine 15 MG Tab PO SCH (21:56)
[2019-09-11] MEDS: Melatonin 3 MG Tab PO PRN (21:56)
[2019-09-12] MEDS: Biotin/Folic Acid/Vitamin C/Vitamin B Complex Tab PO SCH (08:40)
[2019-09-12] MEDS: Multivitamins,Therapeutic Tab PO SCH (08:40)
[2019-09-12] MEDS: Thiamine 100 MG Tab PO SCH (08:41)
[2019-09-12] MEDS: Hydrochlorothiazide 12.5 MG Cap PO SCH (08:41)
[2019-09-12] MEDS: Nicotine 21 MG/24 Hr Patch TRDERM SCH (08:45)
[2019-09-12] MEDS ORDERED: Magnesium Hydroxide 400 MG/5 ML Susp 30 ML Cup PO ONE (09:00)
[2019-09-12] MEDS: Tamsulosin 0.4 MG Cap.ER PO SCH (09:37)
--- NOTE | 2019-09-12 13:45 | PCM.PN ---
- General Info Date of Service: 09/12/19 Admission Dx/Problem (Free Text): Hu reports he is doing well. His last BM was the . He reports he is still somewhat anxious about going to a new place, but no other concerns. Functional Status: Reports: Pain Controlled, Tolerating Diet, Ambulating, Urinating, Incentive Spirometry. Denies: New Symptoms - Review of Systems General: Reports: Weakness (improving ). Denies: Fever, Fatigue, Malaise, Chills HEENT: Reports: No Symptoms. Denies: Sore Throat Pulmonary: Reports: No Symptoms. Denies: Shortness of Breath, Cough, Sputum, Wheezing Cardiovascular: Reports: No Symptoms. Denies: Chest Pain, Palpitations, Dyspnea on Exertion Gastrointestinal: Reports: No Symptoms. Denies: Abdominal Pain, Constipation, Diarrhea, Nausea, Vomiting Genitourinary: Reports: No Symptoms. Denies: Pain Musculoskeletal: Reports: No Symptoms Skin: Reports: No Symptoms. Denies: Cyanosis Neurological: Reports: No Symptoms. Denies: Confusion Psychiatric: Reports: No Symptoms - Patient Data Vitals - Most Recent: Last Vital Signs Temp 97.7 F 09/12/19 08:15 Pulse 54 L 09/12/19 08:15 Resp 14 09/12/19 08:15 BP 130/70 09/12/19 08:15 Pulse Ox 98 09/12/19 08:15 Weight - Most Recent: 161 lb I&O - Last 24 Hours: Intake & Output 09/11/19 09/12/19 09/12/19 22:59 06:59 14:59 Intake Total 60 100 240 Output Total 250 Balance 60 -150 240 Lab Results Last 24 Hours: Laboratory Results - last 24 hr 09/12/19 09/12/19 Range/Units 05:18 05:18 WBC 11.61 H (4.23-9.07) K/mm3 RBC 3.71 L (4.63-6.08) M/mm3 Hgb 13.1 L (13.7-17.5) gm/dl Hct 39.5 L (40.1-51.0) % MCV 106.5 H (79.0-92.2) fl MCH 35.3 H (25.7-32.2) pg MCHC 33.2 (32.2-35.5) g/dl RDW Std Deviation 49.2 H (35.1-43.9) fL Plt Count 359 H (163-337) K/mm3 MPV 10.2 (9.4-12.3) fl Neut % (Auto) 29.6 L (34.0-67.9) % Lymph % (Auto) 59.6 H (21.8-53.1) % Leslie % (Auto) 9.0 (5.3-12.2) % Eos % (Auto) 1.2 (0.8-7.0) Baso % (Auto) 0.3 (0.1-1.2) % Neut # (Auto) 3.42 (1.78-5.38) K/mm3 Lymph # (Auto) 6.92 H (1.32-3.57) K/mm3 Leslie # (Auto) 1.05 H (0.30-0.82) K/mm3 Eos # (Auto) 0.14 (0.04-0.54) K/mm3 Baso # (Auto) 0.04 (0.01-0.08) K/mm3 Manual Slide Review Abnormal smear Sodium 139 (136-145) mEq/L Potassium 3.7 (3.5-5.1) mEq/L Chloride 104 (98-107) mEq/L Carbon Dioxide 26 (21-32) mEq/L Anion Gap 12.7 (5-15) BUN 13 (7-18) mg/dL Creatinine 1.1 (0.7-1.3) mg/dL Est Cr Clr Drug Dosing 55.35 mL/min Estimated GFR (MDRD) > 60 (>60) mL/min BUN/Creatinine Ratio 11.8 L (14-18) Glucose 113 (83-115) mg/dL Calcium 9.1 (8.5-10.1) mg/dL Magnesium 1.8 (1.8-2.4) mg/dl Evan Results Last 24 Hours: Microbiology 09/10/19 11:08 Urine Culture - Final Urine, Clean Catch MIXED MATHEW SUGGESTIVE OF CONTAMINATION. Med Orders - Current: Current Medications Acetaminophen (Tylenol) 650 mg PO Q4H PRN PRN Reason: Pain (Mild 1-3)/fever Albuterol (Proventil Neb Soln) 2.5 mg NEB Q2H PRN PRN Reason: Shortness Of Breath/wheezing Albuterol/Ipratropium (Duoneb 3.0-0.5 Mg/3 Ml) 3 ml NEB BID PRN PRN Reason: Shortness of Breath Enoxaparin Sodium (Lovenox) 40 mg SUBCUT Q24H [facility] Last Admin: 09/11/19 17:19 Dose: 40 mg Folic Acid (Folic Acid) 1 mg PO BEDTIME HAILEE Last Admin: 09/11/19 21:56 Dose: 1 mg Hydrochlorothiazide (Hydrochlorothiazide) 12.5 mg PO DAILY [facility] Last Admin: 09/12/19 08:41 Dose: 12.5 mg Lorazepam (Ativan) 1 - 3 mg PO Q1H PRN; Protocol PRN Reason: Withdrawal Symptoms Melatonin (Melatonin) 9 mg PO BEDTIME PRN PRN Reason: Sleep Last Admin: 09/11/19 21:56 Dose: 9 mg Mirtazapine (Remeron) 15 mg PO BEDTIME [facility] Last Admin: 09/11/19 21:56 Dose: 15 mg Miscellaneous Information (Remove Patch) 1 ea TRDERM DAILY [facility] Last Admin: 09/12/19 08:43 Dose: 1 ea Multivitamins (Thera) 1 each PO DAILY [facility] Last Admin: 09/12/19 08:40 Dose: 1 each Nicotine (Habitrol) 21 mg TRDERM DAILY [facility] Last Admin: 09/12/19 08:45 Dose: 21 mg Sodium Chloride (Saline Flush) 10 ml FLUSH ASDIRECTED PRN PRN Reason: Keep Vein Open Tamsulosin HCl (Flomax) 0.4 mg PO PCBREAKFAST [facility] Last Admin: 09/12/19 09:37 Dose: 0.4 mg Temazepam (Restoril) 7.5 mg PO BEDTIME PRN PRN Reason: Insomnia Last Admin: 09/11/19 21:56 Dose: 7.5 mg Thiamine HCl (Vitamin B-1) 100 mg PO DAILY [facility] Last Admin: 09/12/19 08:41 Dose: 100 mg Vitamin B Complex/Vit C/Folic Acid (Nephrocaps) 1 tab PO DAILY [facility] Last Admin: 09/12/19 08:40 Dose: 1 tab Discontinued Medications Albuterol/Ipratropium (Duoneb 3.0-0.5 Mg/3 Ml) 3 ml NEB Q6H [facility] Last Admin: 09/02/19 13:59 Dose: 3 ml Albuterol/Ipratropium (Duoneb 3.0-0.5 Mg/3 Ml) 3 ml NEB QIDRT [facility] Last Admin: 09/03/19 06:13 Dose: 3 ml Albuterol/Ipratropium (Duoneb 3.0-0.5 Mg/3 Ml) 3 ml NEB BIDRT [facility] Last Admin: 09/03/19 20:47 Dose: 3 ml Albuterol/Ipratropium (Duoneb 3.0-0.5 Mg/3 Ml) 3 ml NEB BID [facility] Last Admin: 09/05/19 20:20 Dose: Not Given Amoxicillin/Clavulanate Potassium (Augmentin 875 Mg/125 Mg) 1 tab PO Q12HR [facility] Last Admin: 09/06/19 09:20 Dose: 1 tab Apixaban (Eliquis) 5 mg PO BID [facility] Last Admin: 09/04/19 09:21 Dose: 5 mg Bisacodyl (Dulcolax) 10 mg PO ONETIME ONE Stop: 09/08/19 16:01 Last Admin: 09/08/19 16:04 Dose: 10 mg Bisacodyl (Dulcolax) 10 mg RECTAL ONETIME ONE Stop: 09/09/19 06:31 Last Admin: 09/09/19 06:07 Dose: 10 mg Enoxaparin Sodium (Lovenox) 40 mg SUBCUT Q24H [facility] Last Admin: 09/06/19 17:22 Dose: Not Given Sodium Chloride (Normal Saline) Confirm Administered Dose 1,000 mls @ as directed .ROUTE .STK-MED ONE Stop: 09/01/19 14:49 Last Admin: 09/01/19 14:54 Dose: Not Given Sodium Chloride (Normal Saline) 1,000 mls @ 1,000 mls/hr IV .BOLUS [facility] Last Admin: 09/01/19 14:55 Dose: 1,000 mls/hr Sodium Chloride (Normal Saline) 1,000 mls @ 1,000 mls/hr IV ONETIME ONE Stop: 09/01/19 17:26 Last Admin: 09/01/19 16:34 Dose: 1,000 mls/hr Lactated Ringer's (Ringers, Lactated) 1,000 mls @ 150 mls/hr IV ASDIRECTED [facility] Last Admin: 09/01/19 17:43 Dose: 150 mls/hr Diltiazem HCl 100 mg/ Sodium (Chloride) 100 mls @ 5 mls/hr IV TITRATE HAILEE; Protocol Last Titration: 09/02/19 01:28 Dose: 2.5 mg/hr, 2.5 mls/hr Lactated Ringer's (Ringers, Lactated) 1,000 mls @ 100 mls/hr IV ASDIRECTED [facility] Last Admin: 09/02/19 10:10 Dose: 100 mls/hr Potassium Chloride 10 meq/ (Premix) 100 mls @ 100 mls/hr IV Q1H [facility] Stop: 09/02/19 03:29 Last Admin: 09/02/19 02:25 Dose: 100 mls/hr Pantoprazole Sodium 40 mg/ (Sodium Chloride) 100 mls @ 200 mls/hr IV Q12H [facility] Stop: 09/03/19 00:14 Magnesium Sulfate 4 gm/ Premix 50 mls @ 12.5 mls/hr IV ONETIME ONE Stop: 09/03/19 13:16 Last Admin: 09/03/19 09:55 Dose: 12.5 mls/hr Magnesium Sulfate 2 gm/ Premix 50 mls @ 25 mls/hr IV ONETIME ONE Stop: 09/11/19 09:16 Last Admin: 09/11/19 09:18 Dose: Not Given Lisinopril (Prinivil) 10 mg PO DAILY [facility] Last Admin: 09/04/19 09:20 Dose: 10 mg Lisinopril (Prinivil) 10 mg PO BID [facility] Last Admin: 09/05/19 21:50 Dose: Not Given Lisinopril (Prinivil) 10 mg PO DAILY [facility] Last Admin: 09/06/19 09:24 Dose: Not Given Lorazepam (Ativan) 1 mg PO BEDTIME [facility] Last Admin: 09/01/19 21:56 Dose: 1 mg Magnesium Hydroxide (Milk Of Magnesia) 30 ml PO ONETIME ONE Stop: 09/07/19 14:01 Last Admin: 09/07/19 14:58 Dose: 30 ml Magnesium Hydroxide (Milk Of Magnesia) 30 ml PO ONETIME ONE Stop: 09/12/19 09:01 Last Admin: 09/12/19 08:42 Dose: 30 ml Magnesium Oxide (Magnesium Oxide) 400 mg PO ONETIME ONE Stop: 09/11/19 08:47 Last Admin: 09/11/19 09:17 Dose: 400 mg Pantoprazole Sodium (Protonix) 40 mg PO BIDAC [facility] Last Admin: 09/04/19 05:07 Dose: 40 mg Pantoprazole Sodium (Protonix Iv) 40 mg IVPUSH Q12H [facility] Stop: 09/03/19 00:01 Last Admin: 09/03/19 00:02 Dose: Not Given Polymyxin/Trimethoprim Sulfate (Polytrim Ophth Soln) 0 ml EYEBOTH Q4HWA [facility] Stop: 09/09/19 23:00 Last Admin: 09/09/19 21:20 Dose: 1 drop Potassium Chloride (Klor-Con M20) 40 meq PO BID [facility] Stop: 09/02/19 21:01 Last Admin: 09/02/19 19:59 Dose: 40 meq Sodium Chloride (Saline Flush) 10 ml FLUSH ASDIRECTED PRN PRN Reason: Keep Vein Open Last Admin: 09/01/19 14:59 Dose: 10 ml Temazepam (Restoril) 15 mg PO BEDTIME [facility] Last Admin: 09/05/19 21:50 Dose: 15 mg Thiamine HCl (Vitamin B-1) 100 mg IVPUSH DAILY [facility] Last Admin: 09/03/19 08:45 Dose: 100 mg - Exam Quality Assessment: DVT Prophylaxis General: Alert, Oriented, Cooperative, No Acute Distress HEENT: Pupils Equal, Pupils Reactive, Mucous Membr. Moist/[place] Neck: Supple, Trachea Midline Lungs: Clear to Auscultation, Normal Respiratory Effort Cardiovascular: Regular Rhythm, Bradycardia GI/Abdominal Exam: Normal Bowel Sounds, Soft, Non-Tender, No Distention (Male) Exam: Deferred Back Exam: Normal Inspection, Full Range of Motion Extremities: Normal Inspection, Normal Range of Motion, Non-Tender, No Pedal Edema, Normal Capillary Refill Skin: Warm, Dry, Intact Neurological: No New Focal Deficit Psy/Mental Status: Alert, Anxious (somewhat ) Sepsis Event Note - Evaluation Sepsis Screening Result: No Definite Risk - Focused Exam Vital Signs: Vital Signs Temp Pulse Resp BP Pulse Ox 09/12/19 08:15 97.7 F 54 L 14 130/70 98 09/12/19 05:23 98.8 F 48 L 14 118/49 L 98 Date Exam was Performed: 09/12/19 Time Exam was Performed: 15:03 - Problem List & Annotations (1) Atrial fibrillation with RVR SNOMED Code(s): 156048151294505 Code(s): I48.91 - UNSPECIFIED ATRIAL FIBRILLATION Status: Resolved Priority: High Current Visit: Yes (2) Dehydration SNOMED Code(s): 10438844 Code(s): E86.0 - DEHYDRATION Status: Resolved Priority: High Current Visit: Yes (3) Elevated liver enzymes SNOMED Code(s): 424033819 Code(s): R74.8 - ABNORMAL LEVELS OF OTHER SERUM ENZYMES Status: Resolved Priority: High Current Visit: Yes (4) Renal insufficiency SNOMED Code(s): 787589396, 037871377 Code(s): N28.9 - DISORDER OF KIDNEY AND URETER, UNSPECIFIED Status: Acute Priority: High Current Visit: Yes (5) Bilateral conjunctivitis SNOMED Code(s): 5572675 Code(s): H10.9 - UNSPECIFIED CONJUNCTIVITIS Status: Resolved Priority: High Current Visit: Yes Qualifiers: Conjunctivitis type: unspecified Qualified Code(s): H10.9 - Unspecified conjunctivitis (6) Chronic alcohol use SNOMED Code(s): 366264 Code(s): Z72.89 - OTHER PROBLEMS RELATED TO LIFESTYLE Status: Acute Priority: High Current Visit: Yes (7) Depression SNOMED Code(s): 79839028 Code(s): F32.9 - MAJOR DEPRESSIVE DISORDER, SINGLE EPISODE, UNSPECIFIED Status: Acute Priority: High Current Visit: Yes Qualifiers: Depression Type: other depression Qualified Code(s): F32.89 - Other specified depressive episodes (8) Tobacco use disorder SNOMED Code(s): 635684766 Code(s): F17.200 - NICOTINE DEPENDENCE, UNSPECIFIED, UNCOMPLICATED Status: Acute Priority: High Current Visit: Yes (9) Macrocytic anemia SNOMED Code(s): 81694772 Code(s): D53.9 - NUTRITIONAL ANEMIA, UNSPECIFIED Status: Acute Priority: High Current Visit: Yes (10) Unsteady gait SNOMED Code(s): 06450799 Code(s): R26.81 - UNSTEADINESS ON FEET Status: Acute Priority: High Current Visit: Yes (11) Elevated ferritin SNOMED Code(s): 335887605, 440995819 Code(s): R79.89 - OTHER SPECIFIED ABNORMAL FINDINGS OF BLOOD CHEMISTRY Status: Acute Priority: High Current Visit: Yes (12) Elevated vitamin B12 level SNOMED Code(s): 987728615, 125651426 Code(s): R74.8 - ABNORMAL LEVELS OF OTHER SERUM ENZYMES Status: Acute Priority: High Current Visit: Yes (13) Iron deficiency SNOMED Code(s): 01372449 Code(s): E61.1 - IRON DEFICIENCY Status: Acute Priority: High Current Visit: Yes (14) Dysuria SNOMED Code(s): 50259788 Code(s): R30.0 - DYSURIA Status: Acute Priority: High Current Visit: Yes (15) Bradycardia SNOMED Code(s): 85539758 Code(s): R00.1 - BRADYCARDIA, UNSPECIFIED Status: Chronic Priority: Medium Current Visit: Yes - Problem List Review Problem List Initiated/Reviewed/Updated: Yes - My Orders Last 24 Hours: My Active Orders 09/13/19 05:11 BASIC METABOLIC PANEL,BMP [CHEM] AM CBC WITH AUTO DIFF [HEME] AM MAGNESIUM [CHEM] AM 09/14/19 05:11 BASIC METABOLIC PANEL,BMP [CHEM] AM CBC WITH AUTO DIFF [HEME] AM MAGNESIUM [CHEM] AM - Plan Plan:: Assessment 79-year-old male with alcoholism admitted with atrial fibrillation and RVR. * Presenting heart rate in the 120s to 130s. * Now in sinus rhythm * Significantly hypovolemic secondary to poor p.o. intake. Blood pressure improved with fluids * Hypovolemia has resolved * Off Cardizem drip * Continues in sinus rhythm and rate controlled with heart rate in the low 60s- 70s not on a rate controlling medication * EKG: September 02, 2019: Sinus rhythm ventricular rate 59, left bundle branch block * Patient remains in sinus rhythm * Echocardiogram showed normal left ventricular ejection fraction of 50 to 55%. Pseudo-normal, grade 2, pattern of LV diastolic filling. Mid inferoseptal segment is abnormal. Normal right ventricular systolic function. Aortic valve is structurally normal and tricuspid. Mild mitral valve regurgitation. Mild tricuspid valve regurgitation. The right ventricular systolic pressure is mildly elevated at 42.3. * Stopped Eliquis 5 mg twice daily. Patient likely went into a single episode of A. fib due to his alcoholism. Recommendation is to wait for another episode before continuing anticoagulation. Alcoholism * NO signs of withdrawal * Drinks 4-5 beers and 1/3 bottle of rum daily * Last drink 4 to 5 days ago * Patient complained of difficulty sleeping, likely secondary to alcoholism * Ativan only had marginal improvement in sleep last night. Tobacco use: [id number] history * Likely COPD with possible exacerbation * Lung sounds significant for diffuse rhonchi and wheezes * Oxygen saturation 97% on room air * Normal chest x-ray * Doing well on nicotine patch. * Finish 5 days of Augment Bilateral conjunctivitis, right eye worse than left * Polytrim 1 drop each eye every 4 hours while awake; Finished treatment 09/10/19 Hypertension, resolved * Last few blood pressures have been low. Held lisinopril. * Currently Lisinopril to 10 mg daily - stop * Currently hydrochlorothiazide 12.5 mg daily - continue Unsteady gait, improving * Likely neuropathy exacerbating secondary to his alcoholism * Physical therapy consulted Macrocytic anemia * Ferritin and vitamin B12 are both elevated, likely secondary to acute phase reactant. Iron is low at 52 and percent saturation is 35% * Anemia likely secondary to alcoholism and iron deficiency Elevated LFTs * Right upper quadrant ultrasound normal * Viral hepatitis panel negative * Likely secondary to alcoholism Depression * With insomnia * Insomnia is currently treated with temazepam which is not the best choice for someone with depression, but may improve his ETOH craving. He states he is not craving ETOH at this time. Dysuria * Reports pain with urination * WBC mildly elevated * UA negative * Start flomax S/P Hypomagnesemia * Magnesium 1.7-->1.8 * Supplement Plan * Stop lisinopril 10 mg daily * Continue hydrochlorothiazide 12.5 mg daily * Start mirtazapine 15 mg qhs * Change Temazepam to 7.5 mg nightly prn, continue melatonin 9 mg at night * Albuterol/ipratropium bromide nebulizer every twice daily * Albuterol every 2 hours as needed * Stop Augmentin twice daily - completed treatment * Thiamine 100 mg p.o. * Folic acid 1 mg at bedtime * Hepatitis C antibody is negative * CODE STATUS: Full code * VTE prophylaxis with Lovenox * Prognosis good * Consult case management for placement * Length of stay greater than 96 hours secondary to difficulties placing patient in long-term facility * Discharge pending placement - medically stable
[2019-09-12] MEDS ORDERED: Bisacodyl 10 MG Supp RECTAL ONE (14:51)
[2019-09-12] MEDS: Enoxaparin 40 MG/0.4 ML Syringe SUBCUT SCH (17:38)
[2019-09-12] MEDS: Temazepam 7.5 MG Cap PO PRN (21:30)
[2019-09-12] MEDS: Melatonin 3 MG Tab PO PRN (21:30)
[2019-09-12] MEDS: Folic Acid 1 MG Tab PO SCH (21:30)
[2019-09-12] MEDS: Mirtazapine 15 MG Tab PO SCH (21:30)
[2019-09-13] MEDS: Thiamine 100 MG Tab PO SCH (08:58)
[2019-09-13] MEDS: Biotin/Folic Acid/Vitamin C/Vitamin B Complex Tab PO SCH (08:58)
[2019-09-13] MEDS: Multivitamins,Therapeutic Tab PO SCH (08:59)
[2019-09-13] MEDS: Hydrochlorothiazide 12.5 MG Cap PO SCH (08:59)
[2019-09-13] MEDS: Nicotine 21 MG/24 Hr Patch TRDERM SCH (08:59)
[2019-09-13] MEDS ORDERED: Magnesium Oxide 400 MG Tab PO SCH (09:00)
[2019-09-13] MEDS: Tamsulosin 0.4 MG Cap.ER PO SCH (09:00)
--- NOTE | 2019-09-13 09:11 | PCM.DCSUM1 ---
Discharge Summary - Hospital Course HPI Initial Comments: 79-year-old male presented to the ED via [facility] for hypertension. Patient was being seen by Dr. landeros, podiatry, to have a wart on his right foot recheck. At the appointment his blood pressure was checked and was found to be in the low 60s systolic. Patient was brought via EMS and given fluids to the emergency room. He states that he has not been eating or drinking well over the last several days. For the last 3 nights he has not been sleeping well because his heart has been beating too fast. He states usually he drinks 4 -5 beers and then a third bottle of rum to fall asleep. He has not had anything to drink in 4 to 5 days because he could not get to the liquor store. Patient states he could not walk and kept losing his balance. 3 days ago he fell, hitting his head when taking out the trash. Last night he states he took 2 of his lisinopril with hydrochlorothiazide blood pressure medications because his heart rate was going fast and he could not sleep. He figured it would help lower his heart rate. He denies any chest pain. He has had an increase in shortness of breath for the last 2 weeks. He smokes 1 pack/day for the last 60 years. He states he has been chain smoking for the last 2 weeks. He has never been diagnosed with atrial fibrillation. He has hypertension which she takes lisinopril and hydrochlorothiazide. He is on gabapentin for some unknown reason. He has had a cough, but it is only mildly productive. He is not using any inhalers. Patient states that he is depressed because he can no longer take care of himself. In the emergency room he was found to be tachycardic in atrial fibrillation. Initially blood pressure was 81/42 which improved with 2 L of fluid. EKG showed A. fib with a ventricular rate of 128 bpm. Left bundle branch block. He was not started on Cardizem in the emergency room because of his low blood pressure. He was felt to be hypovolemic with A. fib with RVR. Chest x-ray showed no acute findings. Initial labs included a white count of 13.4, hemoglobin 14.1, MCV and MCH both elevated, platelets 124, Sodium 141, potassium 3.3, BUN 15, creatinine 1.4, anion gap 19.3, total bilirubin 1.1, AST 122, ALT 140, alkaline phosphatase 119 , troponin 0 0.032, albumin 3.3, alcohol 0 and a negative urine drug screen. Diagnosis: Stroke: No - Discharge Data Discharge Date: 09/13/19 (Admit date: 09/01/19) Discharge Disposition: DC/Tfer to SNF 03 Condition: Good - Referral to Home Health Primary Care Physician: PCP None - Discharge Diagnosis/Problem(s) (1) Atrial fibrillation with RVR SNOMED Code(s): 920162628491385 ICD Code: I48.91 - UNSPECIFIED ATRIAL FIBRILLATION Status: Resolved Priority: High (2) Dehydration SNOMED Code(s): 88620512 ICD Code: E86.0 - DEHYDRATION Status: Resolved Priority: High (3) Elevated liver enzymes SNOMED Code(s): 159845892 ICD Code: R74.8 - ABNORMAL LEVELS OF OTHER SERUM ENZYMES Status: Resolved Priority: High (4) Renal insufficiency SNOMED Code(s): 847976873, 814077351 ICD Code: N28.9 - DISORDER OF KIDNEY AND URETER, UNSPECIFIED Status: Acute Priority: High (5) Bilateral conjunctivitis SNOMED Code(s): 0678097 ICD Code: H10.9 - UNSPECIFIED CONJUNCTIVITIS Status: Resolved Priority: High Qualifiers: Conjunctivitis type: unspecified Qualified Code(s): H10.9 - Unspecified conjunctivitis (6) Chronic alcohol use SNOMED Code(s): 259561 ICD Code: Z72.89 - OTHER PROBLEMS RELATED TO LIFESTYLE Status: Acute Priority: High (7) Depression SNOMED Code(s): 81253707 ICD Code: F32.9 - MAJOR DEPRESSIVE DISORDER, SINGLE EPISODE, UNSPECIFIED Status: Acute Priority: High Qualifiers: Depression Type: other depression Qualified Code(s): F32.89 - Other specified depressive episodes (8) Tobacco use disorder SNOMED Code(s): 120746205 ICD Code: F17.200 - NICOTINE DEPENDENCE, UNSPECIFIED, UNCOMPLICATED Status : Acute Priority: High (9) Macrocytic anemia SNOMED Code(s): 96780631 ICD Code: D53.9 - NUTRITIONAL ANEMIA, UNSPECIFIED Status: Acute Priority : High (10) Unsteady gait SNOMED Code(s): 75372585 ICD Code: R26.81 - UNSTEADINESS ON FEET Status: Acute Priority: High (11) Elevated ferritin SNOMED Code(s): 056999572, 170803603 ICD Code: R79.89 - OTHER SPECIFIED ABNORMAL FINDINGS OF BLOOD CHEMISTRY Status: Acute Priority: High (12) Elevated vitamin B12 level SNOMED Code(s): 777286920, 339549599 ICD Code: R74.8 - ABNORMAL LEVELS OF OTHER SERUM ENZYMES Status: Acute Priority: High (13) Iron deficiency SNOMED Code(s): 90185690 ICD Code: E61.1 - IRON DEFICIENCY Status: Acute Priority: High (14) Dysuria SNOMED Code(s): 55427097 ICD Code: R30.0 - DYSURIA Status: Acute Priority: High (15) Bradycardia SNOMED Code(s): 33680280 ICD Code: R00.1 - BRADYCARDIA, UNSPECIFIED Status: Chronic Priority: Medium - Patient Summary/Data Consults: Consultations 09/01/19 17:47 Consult to Case Management/Careers Counsellor [CONS] Routine 09/01/19 21:35 PT Evaluation and Treatment [CONS] Routine 09/04/19 09:58 OT Evaluation and Treatment [CONS] Routine Labs Pending at D/C: None Recommended Follow-up Testing/Procedures: Follow-up with primary care provider within 5-7 days of discharge Hospital Course: Hu was admitted to the floor with A. fib, RVR, and hypotension. Blood pressure improved with IV fluids and he was started on a Cardizem drip with heart rate noted to be in the 60s and 70s. Cardizem drip was discontinued and he was noted to remain in a sinus rhythm with bradycardia. Echocardiogram showed normal left ventricular ejection fraction of 50 to 55%. Pseudo-normal, grade 2, pattern of LV diastolic filling. Mid inferoseptal segment is abnormal. Normal right ventricular systolic function. Aortic valve is structurally normal and tricuspid. Mild mitral valve regurgitation. Mild tricuspid valve regurgitation. The right ventricular systolic pressure is mildly elevated at 42.3. Was started on Eliquis 5 mg twice daily but this was discontinued as his A. fib was likely due to his chronic alcoholism. Recommend waiting for another episode before starting him on anticoagulation. He states he drinks 4-5 beers and about a third a bottle of rum daily. He was complaining of difficulty sleeping but did not have any signs of withdrawal while here. He has a [id number] history of tobacco use and was started on nicotine patch. Did have mild leukocytosis and was requiring oxygen, although chest x-ray remained clear. Were concerns over possible aspiration pneumonia and he was started on a 5-day course of Augmentin which he completed while here. He was also noted to have bilateral conjunctivitis with his right eye being worse than his left. He was started on Polytrim and finished treatment on 09/10/2019. His lisinopril was held after he was noted to have mild hypotension. Hydrochlorothiazide was continued with resulting good blood pressures. He would did work with PT and OT who were suggesting SNF placement. He was noted to have macrocytic anemia and both ferritin and B12 were elevated likely due to an acute phase reactant. Iron was low at 52 with a 35% saturation and anemia was noted likely due to alcoholism and iron deficiency. LFTs were elevated but did respond well during hospitalization. Hepatic panel showed no signs of hepatitis. He did report that he was feeling depressed and he was started on Remeron. He was advised that this will likely take some time to feel like it is working. He also noted urinary frequency and like he was not emptying completely. He was started on Flomax with good results. Museum was low and was supplemented. This remained on the low end of normal throughout his stay and he was prescribed 5 days of oral magnesium supplementation on discharge. He was also started on thiamine and folic acid due to his chronic alcohol use. There was some difficulty getting in place due to the current medical situation with the COVID-19 virus. [facility]. Weaned off oxygen prior to discharge. He did report bilateral continued leg numbness and his home gabapentin along with a 300 mg bedtime dose were prescribed prior to discharge. - Patient Instructions Diet: Heart Healthy Diet Activity: As Tolerated Driving: Do Not Drive Showering/Bathing: May Shower Notify Provider of: Fever, Increased Pain, Nausea and/or Vomiting Other/Special Instructions: Follow-up with primary care provider within 5-7 days of discharge. Take all new medications as prescribed. Continue home medications as directed. Continue PT/OT at SNF. Should symptoms return or worsen contact primary care provider or return to the Emergency Department. - Discharge Plan *PRESCRIPTION DRUG MONITORING PROGRAM REVIEWED*: No *COPY OF PRESCRIPTION DRUG MONITORING REPORT IN PATIENT DONALD: No Prescriptions/Med Rec: Biotin/FA/Vit C/Vit B Complex [Nephrocaps] 1 tab PO DAILY #20 tablet Folic Acid 1 mg PO BEDTIME #30 tablet Gabapentin [Neurontin] 300 mg PO BEDTIME #20 cap Gabapentin [Neurontin] 100 mg PO TIDMEALS #60 capsule hydroCHLOROthiazide [Hydrochlorothiazide] 12.5 mg PO DAILY #20 cap Magnesium Oxide 400 mg PO DAILY #5 tablet Mirtazapine [Remeron] 15 mg PO BEDTIME #30 tablet Nicotine [Habitrol] 21 mg TRDERM DAILY #20 patch Tamsulosin [Flomax] 0.4 mg PO PCBREAKFAST #30 cap.er Thiamine [Vitamin B-1] 100 mg PO DAILY #30 tablet Home Medications: Home Meds Multivitamin [Multivitamins] 1 cap PO DAILY 09/01/19 [History] Sildenafil [Viagra] 100 mg PO ASDIRECTED 09/01/19 [History] Biotin/FA/Vit C/Vit B Complex [Nephrocaps] 1 tab PO DAILY #20 tablet 09/11/19 [ Rx] Folic Acid 1 mg PO BEDTIME #30 tablet 09/11/19 [Rx] Mirtazapine [Remeron] 15 mg PO BEDTIME #30 tablet 09/11/19 [Rx] Nicotine [Habitrol] 21 mg TRDERM DAILY #20 patch 09/11/19 [Rx] Tamsulosin [Flomax] 0.4 mg PO PCBREAKFAST #30 cap.er 09/11/19 [Rx] Thiamine [Vitamin B-1] 100 mg PO DAILY #30 tablet 09/11/19 [Rx] hydroCHLOROthiazide [Hydrochlorothiazide] 12.5 mg PO DAILY #20 cap 09/11/19 [Rx] Gabapentin [Neurontin] 100 mg PO TIDMEALS #60 capsule 09/13/19 [Rx] Gabapentin [Neurontin] 300 mg PO BEDTIME #20 cap 09/13/19 [Rx] Magnesium Oxide 400 mg PO DAILY #5 tablet 09/13/19 [Rx] Oxygen Therapy Mode: Room Air Patient Handouts: Alcohol Use Disorder, Dehydration, Adult, [id number], Steps to Quit Smoking, Atrial Fibrillation, [id number] Referrals: Eyal Costa MD [Physician] - 09/18/19 11:00 am (Please check in at 10 :30am.) - Discharge Summary/Plan Comment DC Time >30 min.: Yes (45 mins ) - General Info Date of Service: 09/13/19 Admission Dx/Problem (Free Text: Hu reports he is doing well. His last BM was the . He reports he is still somewhat anxious about going to a new place, but no other concerns. Functional Status: Reports: Pain Controlled, Tolerating Diet, Ambulating, Urinating. Denies: New Symptoms - Review of Systems General: Reports: Weakness (improving ). Denies: Fever, Fatigue, Malaise, Chills HEENT: Reports: No Symptoms. Denies: Headaches, Sore Throat Pulmonary: Reports: No Symptoms. Denies: Shortness of Breath, Cough, Sputum, Wheezing Cardiovascular: Reports: No Symptoms. Denies: Chest Pain, Palpitations, Dyspnea on Exertion Gastrointestinal: Reports: No Symptoms. Denies: Abdominal Pain, Constipation, Diarrhea, Nausea, Vomiting Genitourinary: Reports: No Symptoms. Denies: Pain Musculoskeletal: Reports: No Symptoms Skin: Reports: No Symptoms. Denies: Cyanosis Neurological: Reports: No Symptoms. Denies: Confusion Psychiatric: Reports: No Symptoms - Patient Data Vitals - Most Recent: Last Vital Signs Temp 98.1 F 09/13/19 05:50 Pulse 85 09/13/19 05:50 Resp 16 09/13/19 05:50 BP 99/72 09/13/19 05:50 Pulse Ox 97 09/13/19 05:50 Weight - Most Recent: 160 lb 12.8 oz I&O - Last 24 hours: Intake & Output 09/12/19 09/13/19 09/13/19 22:59 06:59 14:59 Intake Total 1150 250 Output Total 450 200 Balance 700 50 Lab Results - Last 24 hrs: Laboratory Results - last 24 hr 09/13/19 09/13/19 Range/Units 05:25 05:25 WBC 13.69 H (4.23-9.07) K/mm3 RBC 3.76 L (4.63-6.08) M/mm3 Hgb 13.5 L (13.7-17.5) gm/dl Hct 40.2 (40.1-51.0) % MCV 106.9 H (79.0-92.2) fl MCH 35.9 H (25.7-32.2) pg MCHC 33.6 (32.2-35.5) g/dl RDW Std Deviation 49.3 H (35.1-43.9) fL Plt Count 347 H (163-337) K/mm3 MPV 10.3 (9.4-12.3) fl Neut % (Auto) 29.4 L (34.0-67.9) % Lymph % (Auto) 59.6 H (21.8-53.1) % [place] % (Auto) 8.8 (5.3-12.2) % Eos % (Auto) 1.3 (0.8-7.0) Baso % (Auto) 0.4 (0.1-1.2) % Neut # (Auto) 4.03 (1.78-5.38) K/mm3 Lymph # (Auto) 8.16 H (1.32-3.57) K/mm3 [place] # (Auto) 1.20 H (0.30-0.82) K/mm3 Eos # (Auto) 0.18 (0.04-0.54) K/mm3 Baso # (Auto) 0.05 (0.01-0.08) K/mm3 Manual Slide Review Abnormal smear Sodium 140 (136-145) mEq/L Potassium 4.4 (3.5-5.1) mEq/L Chloride 104 (98-107) mEq/L Carbon Dioxide 28 (21-32) mEq/L Anion Gap 12.4 (5-15) BUN 14 (7-18) mg/dL Creatinine 1.2 (0.7-1.3) mg/dL Est Cr Clr Drug Dosing 50.73 mL/min Estimated GFR (MDRD) 59 (>60) mL/min BUN/Creatinine Ratio 11.7 L (14-18) Glucose 112 (83-115) mg/dL Calcium 9.5 (8.5-10.1) mg/dL Magnesium 1.9 (1.8-2.4) mg/dl SERENA Results - Last 24 hrs: Microbiology 09/10/19 11:08 Urine Culture - Final Urine, Clean Catch MIXED MATHEW SUGGESTIVE OF CONTAMINATION. Med Orders - Current: Current Medications Acetaminophen (Tylenol) 650 mg PO Q4H PRN PRN Reason: Pain (Mild 1-3)/fever Albuterol (Proventil Neb Soln) 2.5 mg NEB Q2H PRN PRN Reason: Shortness Of Breath/wheezing Albuterol/Ipratropium (Duoneb 3.0-0.5 Mg/3 Ml) 3 ml NEB BID PRN PRN Reason: Shortness of Breath Enoxaparin Sodium (Lovenox) 40 mg SUBCUT Q24H [facility] Last Admin: 09/12/19 17:38 Dose: 40 mg Folic Acid (Folic Acid) 1 mg PO BEDTIME [facility] Last Admin: 09/12/19 21:30 Dose: 1 mg Hydrochlorothiazide (Hydrochlorothiazide) 12.5 mg PO DAILY [facility] Last Admin: 09/13/19 08:59 Dose: 12.5 mg Lorazepam (Ativan) 1 - 3 mg PO Q1H PRN; Protocol PRN Reason: Withdrawal Symptoms Magnesium Oxide (Magnesium Oxide) 400 mg PO DAILY [facility] Last Admin: 09/13/19 08:58 Dose: 400 mg Melatonin (Melatonin) 9 mg PO BEDTIME PRN PRN Reason: Sleep Last Admin: 09/12/19 21:30 Dose: 9 mg Mirtazapine (Remeron) 15 mg PO BEDTIME [facility] Last Admin: 09/12/19 21:30 Dose: 15 mg Miscellaneous Information (Remove Patch) 1 ea TRDERM DAILY [facility] Last Admin: 09/13/19 09:00 Dose: 1 ea Multivitamins (Thera) 1 each PO DAILY [facility] Last Admin: 09/13/19 08:59 Dose: 1 each Nicotine (Habitrol) 21 mg TRDERM DAILY [facility] Last Admin: 09/13/19 08:59 Dose: 21 mg Sodium Chloride (Saline Flush) 10 ml FLUSH ASDIRECTED PRN PRN Reason: Keep Vein Open Tamsulosin HCl (Flomax) 0.4 mg PO PCBREAKFAST [facility] Last Admin: 09/13/19 09:00 Dose: 0.4 mg Temazepam (Restoril) 7.5 mg PO BEDTIME PRN PRN Reason: Insomnia Last Admin: 09/12/19 21:30 Dose: 7.5 mg Thiamine HCl (Vitamin B-1) 100 mg PO DAILY [facility] Last Admin: 09/13/19 08:58 Dose: 100 mg Vitamin B Complex/Vit C/Folic Acid (Nephrocaps) 1 tab PO DAILY [facility] Last Admin: 09/13/19 08:58 Dose: 1 tab Discontinued Medications Albuterol/Ipratropium (Duoneb 3.0-0.5 Mg/3 Ml) 3 ml NEB Q6H [facility] Last Admin: 09/02/19 13:59 Dose: 3 ml Albuterol/Ipratropium (Duoneb 3.0-0.5 Mg/3 Ml) 3 ml NEB QIDRT [facility] Last Admin: 09/03/19 06:13 Dose: 3 ml Albuterol/Ipratropium (Duoneb 3.0-0.5 Mg/3 Ml) 3 ml NEB BIDRT [facility] Last Admin: 09/03/19 20:47 Dose: 3 ml Albuterol/Ipratropium (Duoneb 3.0-0.5 Mg/3 Ml) 3 ml NEB BID [facility] Last Admin: 09/05/19 20:20 Dose: Not Given Amoxicillin/Clavulanate Potassium (Augmentin 875 Mg/125 Mg) 1 tab PO Q12HR [facility] Last Admin: 09/06/19 09:20 Dose: 1 tab Apixaban (Eliquis) 5 mg PO BID [facility] Last Admin: 09/04/19 09:21 Dose: 5 mg Bisacodyl (Dulcolax) 10 mg PO ONETIME ONE Stop: 09/08/19 16:01 Last Admin: 09/08/19 16:04 Dose: 10 mg Bisacodyl (Dulcolax) 10 mg RECTAL ONETIME ONE Stop: 09/09/19 06:31 Last Admin: 09/09/19 06:07 Dose: 10 mg Bisacodyl (Dulcolax) 10 mg RECTAL ONETIME ONE Stop: 09/12/19 14:52 Last Admin: 09/12/19 15:18 Dose: 10 mg Enoxaparin Sodium (Lovenox) 40 mg SUBCUT Q24H [facility] Last Admin: 09/06/19 17:22 Dose: Not Given Sodium Chloride (Normal Saline) Confirm Administered Dose 1,000 mls @ as directed .ROUTE .STK-MED ONE Stop: 09/01/19 14:49 Last Admin: 09/01/19 14:54 Dose: Not Given Sodium Chloride (Normal Saline) 1,000 mls @ 1,000 mls/hr IV .BOLUS [facility] Last Admin: 09/01/19 14:55 Dose: 1,000 mls/hr Sodium Chloride (Normal Saline) 1,000 mls @ 1,000 mls/hr IV ONETIME ONE Stop: 09/01/19 17:26 Last Admin: 09/01/19 16:34 Dose: 1,000 mls/hr Lactated Ringer's (Ringers, Lactated) 1,000 mls @ 150 mls/hr IV ASDIRECTED [facility] Last Admin: 09/01/19 17:43 Dose: 150 mls/hr Diltiazem HCl 100 mg/ Sodium (Chloride) 100 mls @ 5 mls/hr IV TITRATE [facility]; Protocol Last Titration: 09/02/19 01:28 Dose: 2.5 mg/hr, 2.5 mls/hr Lactated Ringer's (Ringers, Lactated) 1,000 mls @ 100 mls/hr IV ASDIRECTED [facility] Last Admin: 09/02/19 10:10 Dose: 100 mls/hr Potassium Chloride 10 meq/ (Premix) 100 mls @ 100 mls/hr IV Q1H [facility] Stop: 09/02/19 03:29 Last Admin: 09/02/19 02:25 Dose: 100 mls/hr Pantoprazole Sodium 40 mg/ (Sodium Chloride) 100 mls @ 200 mls/hr IV Q12H [facility] Stop: 09/03/19 00:14 Magnesium Sulfate 4 gm/ Premix 50 mls @ 12.5 mls/hr IV ONETIME ONE Stop: 09/03/19 13:16 Last Admin: 09/03/19 09:55 Dose: 12.5 mls/hr Magnesium Sulfate 2 gm/ Premix 50 mls @ 25 mls/hr IV ONETIME ONE Stop: 09/11/19 09:16 Last Admin: 09/11/19 09:18 Dose: Not Given Lisinopril (Prinivil) 10 mg PO DAILY [facility] Last Admin: 09/04/19 09:20 Dose: 10 mg Lisinopril (Prinivil) 10 mg PO BID [facility] Last Admin: 09/05/19 21:50 Dose: Not Given Lisinopril (Prinivil) 10 mg PO DAILY [facility] Last Admin: 09/06/19 09:24 Dose: Not Given Lorazepam (Ativan) 1 mg PO BEDTIME [facility] Last Admin: 09/01/19 21:56 Dose: 1 mg Magnesium Hydroxide (Milk Of Magnesia) 30 ml PO ONETIME ONE Stop: 09/07/19 14:01 Last Admin: 09/07/19 14:58 Dose: 30 ml Magnesium Hydroxide (Milk Of Magnesia) 30 ml PO ONETIME ONE Stop: 09/12/19 09:01 Last Admin: 09/12/19 08:42 Dose: 30 ml Magnesium Oxide (Magnesium Oxide) 400 mg PO ONETIME ONE Stop: 09/11/19 08:47 Last Admin: 09/11/19 09:17 Dose: 400 mg Pantoprazole Sodium (Protonix) 40 mg PO BIDAC [facility] Last Admin: 09/04/19 05:07 Dose: 40 mg Pantoprazole Sodium (Protonix Iv) 40 mg IVPUSH Q12H [facility] Stop: 09/03/19 00:01 Last Admin: 09/03/19 00:02 Dose: Not Given Polymyxin/Trimethoprim Sulfate (Polytrim Ophth Soln) 0 ml EYEBOTH Q4HWA [facility] Stop: 09/09/19 23:00 Last Admin: 09/09/19 21:20 Dose: 1 drop Potassium Chloride (Klor-Con M20) 40 meq PO BID [facility] Stop: 09/02/19 21:01 Last Admin: 09/02/19 19:59 Dose: 40 meq Sodium Chloride (Saline Flush) 10 ml FLUSH ASDIRECTED PRN PRN Reason: Keep Vein Open Last Admin: 09/01/19 14:59 Dose: 10 ml Temazepam (Restoril) 15 mg PO BEDTIME [facility] Last Admin: 09/05/19 21:50 Dose: 15 mg Thiamine HCl (Vitamin B-1) 100 mg IVPUSH DAILY [facility] Last Admin: 09/03/19 08:45 Dose: 100 mg - Exam Quality Assessment: Reports: DVT Prophylaxis. Denies: Supplemental Oxygen, Urine Catheter General: Reports: Alert, Oriented, Cooperative, No Acute Distress HEENT: Reports: Pupils Equal, Pupils Reactive, Mucous Membr. Moist/[place] Neck: Reports: Supple, Trachea Midline Lungs: Reports: Clear to Auscultation, Normal Respiratory Effort Cardiovascular: Reports: Regular Rhythm, Bradycardia GI/Abdominal Exam: Normal Bowel Sounds, Soft, Non-Tender, No Distention (Male) Exam: Deferred Rectal (Males) Exam: Deferred Back Exam: Reports: Normal Inspection, Full Range of Motion Extremities: Normal Inspection, Normal Range of Motion, Non-Tender, No Pedal Edema, Normal Capillary Refill Skin: Reports: Warm, Dry, Intact Neurological: Reports: No New Focal Deficit Psy/Mental Status: Reports: Alert
[2019-09-13 09:50] VITALS: BP 114/59; PULSE 51
== END 2019-09-13 12:28 | DRG 310 ==
LOC: JD.ED 14:35 → OBSVTOIN 19:10 → JD.ICU 19:10 → INTOOBSV 19:10 → JD.MS 09-05 16:52
PROVIDERS: ADMIT Family Medicine; ATTEND Family Medicine
DX: I48.91 Unspecified atrial fibrillation (principal); F41.8 Other specified anxiety disorders; F17.210 Nicotine dependence, cigarettes, uncomplicated; I10 Essential (primary) hypertension; H10.9 Unspecified conjunctivitis; H40.9 Unspecified glaucoma; H35.30 Unspecified macular degeneration; F32.9 Major depressive disorder, single episode, unspecified; F41.9 Anxiety disorder, unspecified; F17.200 Nicotine dependence, unspecified, uncomplicated; Z72.89 Other problems related to lifestyle; Z79.899 Other long term (current) drug therapy; F10.20 Alcohol dependence, uncomplicated; G62.1 Alcoholic polyneuropathy; E86.0 Dehydration; R74.8 Abnormal levels of other serum enzymes; N28.9 Disorder of kidney and ureter, unspecified; D53.9 Nutritional anemia, unspecified; R26.81 Unsteadiness on feet; R79.89 Other specified abnormal findings of blood chemistry; E61.1 Iron deficiency; R30.0 Dysuria; R00.1 Bradycardia, unspecified
CPT/HCPCS: 36415; 71045; 80053; 80306; 80307; 81001; 83735; 84484; 85025; 93005; 96360; 96361; 99285; J7030 ×2; J7120; 76700; 76700-26; 80048; 80074; 82607; 82728; 83540; 84466; 86803; 87086; 93010; 93306; 94640; 97110-GO; 97110-GP; 97112-GP; 97116-GP; 97162-GP; 97165-GO; 97530-GO; 97535-GO; 99284; A9270-GY; C9113; J1650; J3411; J3475; J3480; J3490; J7050; J7620-GY

== ENCOUNTER 2020-02-25 19:33 | Observation (INO) | payer MEDICARE, MEDICAID ==
--- NOTE | 2020-02-25 20:25 | EDM.PDOC ---
ED HPI GENERAL MEDICAL PROBLEM - General Chief Complaint: Headache Stated Complaint: [facility] Time Seen by Provider: 02/25/20 20:10 Source of Information: Reports: Patient, RN Notes Reviewed History Limitations: Reports: No Limitations - History of Present Illness INITIAL COMMENTS - FREE TEXT/NARRATIVE: Patient is a 80-year-old male who presents to the ED via [facility] for the evaluation of a fever and a headache. The patient is a resident of [facility], staff there report that his fever was 100.8 F. At time of triage his temperature is 98.2 F, he is not in any respiratory distress his respiratory rate is 18, O2 sats are 97% on room air, and his peripheral pulse is 65 bpm. He was complaining of a mild headache earlier today, but they did give him some Tylenol 4 hours ago and this seemed to help the fever and the headache. He states that now would be rated a 3 out of 10. Other than a fever and a headache, is not complaining of any nausea/vomiting/diarrhea, shortness of breath or cough, he is not have any fatigue or myalgias. His primary care provider is Dr. Costa. - Related Data Allergies Allergy/AdvReac Type Severity Reaction Status Date / Time No Known Allergies Allergy Verified 02/25/20 19:39 Home Meds: Home Meds Mirtazapine [Remeron] 15 mg PO BEDTIME #30 tablet 09/11/19 [Rx] hydroCHLOROthiazide [Hydrochlorothiazide] 12.5 mg PO DAILY #20 cap 09/11/19 [Rx] Gabapentin [Neurontin] 100 mg PO TIDMEALS #60 capsule 09/13/19 [Rx] Gabapentin [Neurontin] 300 mg PO BEDTIME #20 cap 09/13/19 [Rx] Magnesium Oxide 400 mg PO DAILY #5 tablet 09/13/19 [Rx] Acetaminophen [Tylenol] 650 mg PO Q4HR PRN 02/25/20 [History] Hydrocortisone 0.5%. 1 applic TOP QID PRN 02/25/20 [History] Melatonin 5 mg PO BEDTIME 02/25/20 [History] Vit No.129/Iron/FA [ One Daily Tablet] 1 tab PO DAILY 02/25/20 [History] Tamsulosin [Flomax] 0.4 mg PO ACDINNER 02/25/20 [History] Vit A/Vit C/Vit E/Zinc/Copper [Preservision Areds Softgel] 1 tab PO BID 02/25/20 [History] polyethylene glycoL 3350 [MiraLAX] 17 g PO DAILY 02/25/20 [History] B Complex W-C No.20/Folic Acid [Mynephrocaps Softgel] 1 mg PO DAILY 02/26/20 [History] Sennosides/Docusate Sodium [Senna-Plus Tablet] 8.6 mg PO DAILY 02/26/20 [History] Past Medical History - Past Health History Medical/Surgical History: Denies Medical/Surgical History HEENT History: Reports: Impaired Vision Cardiovascular History: Reports: None, Hypertension Psychiatric History: Reports: Anxiety, Depression, Other (See Below) Other Psychiatric History: depressed as to how he lives and can't take care of self; drinks for escape; - Past Surgical History HEENT Surgical History: Reports: Other (See Below) Social & Family History - Family History Family Medical History: Noncontributory - Tobacco Use Smoking Status *Q: Former Smoker Years of Tobacco use: 60 Packs/Tins Daily: 1 Used Tobacco, but Quit: Yes Month/Year Tobacco Last Used: 06/2017 Second Hand Smoke Exposure: No - Caffeine Use Caffeine Use: Reports: None - Recreational Drug Use Recreational Drug Use: No ED ROS GENERAL - Review of Systems Review Of Systems: Comprehensive ROS is negative, except as noted in HPI. - Physical Exam Exam: See Below Exam Limited By: No Limitations General Appearance: Alert, WD/WN, No Apparent Distress Throat/Mouth: Normal Inspection, Normal Oropharynx Neck: Normal Inspection Respiratory/Chest: No Respiratory Distress, Lungs Clear, Normal Breath Sounds, No Accessory Muscle Use, Chest Non-Tender Cardiovascular: Normal Peripheral Pulses, Regular Rate, Rhythm, No Murmur GI/Abdominal: Normal Bowel Sounds, Soft, Non-Tender, No Distention, No Mass Neuro Exam (Abbreviated): Alert, Oriented, Normal Cognition, No Motor/Sensory Deficits Extremities: Normal Inspection, Normal Capillary Refill Psychiatric: Normal Affect, Normal Mood Skin Exam: Warm, Dry, Intact, Normal Color, No Rash Course - Vital Signs Last Recorded V/S: Last Vital Signs Temp 98.8 F 02/27/20 13:11 Pulse 56 L 02/27/20 13:11 Resp 14 02/27/20 13:11 BP 158/90 H 02/27/20 13:11 Pulse Ox 98 02/27/20 13:11 - Orders/Labs/Meds Labs: Laboratory Tests 02/25/20 02/25/20 02/25/20 Range/Units 20:44 20:44 20:45 WBC 12.13 H (4.23-9.07) K/mm3 RBC 4.44 L (4.63-6.08) M/mm3 Hgb 14.0 (13.7-17.5) gm/dl Hct 41.6 (40.1-51.0) % MCV 93.7 H D (79.0-92.2) fl MCH 31.5 (25.7-32.2) pg MCHC 33.7 (32.2-35.5) g/dl RDW Std Deviation 46.3 H (35.1-43.9) fL Plt Count 227 D (163-337) K/mm3 MPV 9.4 (9.4-12.3) fl Neut % (Auto) 59.7 (34.0-67.9) % Lymph % (Auto) 29.3 (21.8-53.1) % [place] % (Auto) 9.5 (5.3-12.2) % Eos % (Auto) 1.0 (0.8-7.0) Baso % (Auto) 0.2 (0.1-1.2) % Neut # (Auto) 7.24 H (1.78-5.38) K/mm3 Lymph # (Auto) 3.55 (1.32-3.57) K/mm3 [place] # (Auto) 1.15 H (0.30-0.82) K/mm3 Eos # (Auto) 0.12 (0.04-0.54) K/mm3 Baso # (Auto) 0.03 (0.01-0.08) K/mm3 Manual Slide Review Abnormal smear Sodium 137 (136-145) mEq/L Potassium 3.7 (3.5-5.1) mEq/L Chloride 98 (98-107) mEq/L Carbon Dioxide 31 (21-32) mEq/L Anion Gap 11.7 (5-15) BUN 8 (7-18) mg/dL Creatinine 1.4 H (0.7-1.3) mg/dL Est Cr Clr Drug Dosing 46.96 mL/min Estimated GFR (MDRD) 49 (>60) mL/min BUN/Creatinine Ratio 5.7 L (14-18) Glucose 114 (83-115) mg/dL Calcium 9.3 (8.5-10.1) mg/dL Total Bilirubin 0.6 (0.2-1.0) mg/dL AST 17 (15-37) U/L ALT 24 (16-63) U/L Alkaline Phosphatase 83 (46-116) U/L Total Protein 6.9 (6.4-8.2) g/dl Albumin 3.6 (3.4-5.0) g/dl Globulin 3.3 gm/dL Albumin/Globulin Ratio 1.1 (1-2) COVID-19 (YARELIS) Positive H (NEGATIVE) Meds: Medications Discontinued Medications Generic Name Dose Route Start Last Admin Trade Name Freq PRN Reason Stop Dose Admin Acetaminophen 650 mg 02/25/20 22:34 02/26/20 21:49 Tylenol PO 650 mg Q6H PRN Administration Fever Acetaminophen 650 mg 02/26/20 20:38 Tylenol PO Q4HR PRN Pain Gabapentin 300 mg 02/25/20 22:33 02/25/20 22:56 Neurontin PO 02/25/20 22:34 300 mg ONETIME ONE Administration Gabapentin 100 mg 02/27/20 07:00 Neurontin PO TIDMEALS [facility] Gabapentin 300 mg 02/26/20 21:00 Neurontin PO BEDTIME HAILEE Gabapentin 300 mg 02/26/20 21:30 02/26/20 21:51 Neurontin PO 02/26/20 21:31 300 mg BEDTIME ONE Administration Gabapentin 100 mg 02/27/20 11:00 02/27/20 11:51 Neurontin PO 02/27/20 11:01 100 mg ONETIME ONE Administration Hydrochlorothiazide 12.5 mg 02/27/20 09:00 Hydrochlorothiazide PO DAILY [facility] Hydrochlorothiazide 12.5 mg 02/27/20 11:00 02/27/20 11:52 Hydrochlorothiazide PO 02/27/20 11:01 12.5 mg ONETIME ONE Administration Magnesium Oxide 400 mg 02/27/20 09:00 02/27/20 10:35 Magnesium Oxide PO 400 mg DAILY [facility] Administration Melatonin 6 mg 02/25/20 22:47 02/26/20 21:48 Melatonin PO 6 mg BEDTIME PRN Administration Sleep Mirtazapine 15 mg 02/25/20 22:33 02/25/20 22:56 Remeron PO 02/25/20 22:34 15 mg ONETIME ONE Administration Mirtazapine 15 mg 02/26/20 21:00 Remeron PO BEDTIME HAILEE Mirtazapine 15 mg 02/26/20 21:30 02/26/20 21:52 Remeron PO 02/26/20 21:31 15 mg BEDTIME ONE Administration Tamsulosin HCl 0.4 mg 02/27/20 16:00 Flomax PO ACDINNER HAILEE - Re-Assessments/Exams Free Text/Narrative Re-Assessment/Exam: 02/25/20 20:25 Patient presents to the ED for the evaluation of his fever and headache. Patient specifically states he came here for coronavirus testing. He was not complaining of any other symptoms besides this. I will order the rapid coronavirus screen at this time, along with basic labs and a chest x-ray for further evaluation. 02/25/20 21:51 Patient's chest x-ray demonstrates clear looking lungs, with no acute parenchymal change. No acute changes were seen on portable chest x-ray. The patient's laboratory evaluation demonstrated a mild increase in the patient's white blood cell count of 12,000 with no discernible left shift. Metabolic panel is within normal limits however the patient's rapid COVID test was positive at today's visit. At this time his O2 sats are good, the chest x-ray is clear, there is no indication for hospitalization. We are trying to get him back to his [facility], they may have a special room for him to be sequestered in. 02/25/20 22:30 We have been in contact with [facility] with comfort, and they are hesitant to take the patient back as they do not have a private room to keep the patient in. He does have a roommate at this time; In the ER stating that CDC guidelines and there protocols tell them that they cannot admit a patient that is symptomatic into a room with the patient who is nonsymptomatic. Nonetheless this roommate has been exposed all day to the patient. We will try to keep the patient in the ER overnight, with the tentative plan of discharging back to the [facility] in the morning, as he does not meet hospital criteria at this time. I did talk with Dr. Thomas about this, and he is aware of the patient's status. He will watch the patient overnight but I will put in some as needed medications, so the gentleman can be comfortable overnight. 02/28/20 11:22 Upon review of the patient's chart, it does appear that he did get admitted for observation, my original disposition was to send the gentleman back to [facility] (home), but I ultimately change the disposition for charting to reflect the fact that he got admitted for observation. Departure - Departure Time of Disposition: 22:07 Disposition: Refer to Observation Condition: Good Clinical Impression: COVID-19 - Discharge Information *PRESCRIPTION DRUG MONITORING PROGRAM REVIEWED*: No *COPY OF PRESCRIPTION DRUG MONITORING REPORT IN PATIENT DONALD: No Sepsis Event Note (ED) - Evaluation Sepsis Screening Result: No Definite Risk
--- NOTE | 2020-02-25 20:43 | CR ---
Chest: Portable view of the chest was obtained. Comparison: Prior chest x-ray of 09/01/19. Heart size and mediastinum are normal. Lungs are clear with no acute parenchymal change. Bony structures are grossly intact. Impression: 1. Nothing acute is seen on portable chest x-ray. Diagnostic code #1 This report was dictated in MDT
[2020-02-25] MEDS ORDERED: Mirtazapine 15 MG Tab PO ONE (22:33)
[2020-02-25] MEDS ORDERED: Gabapentin 300 MG Cap PO ONE (22:33)
[2020-02-25] MEDS: Melatonin 3 MG Tab PO PRN (22:56)
[2020-02-25] MEDS: Acetaminophen 325 MG Tab PO PRN (22:56)
[2020-02-26] MEDS: Acetaminophen 325 MG Tab PO PRN ×3 (06:52→21:49)
[2020-02-26] MEDS ORDERED: Acetaminophen 325 MG Tab PO PRN (20:38)
--- NOTE | 2020-02-26 20:49 | PCM.HP.2 ---
H&P History of Present Illness - General Date of Service: 02/26/20 Admit Problem/Dx: Admission Diagnosis/Problem Admission Diagnosis/Problem COVID-19 - History of Present Illness Initial Comments - Free Text/Narative: Patient presented to the emergency department yesterday secondary to headache and reported fever 100.8 F. T-max since arriving in the emergency department was 100.4 this morning at 0700 hours. Patient states that he had a mild headache, 3 out of 10, that resolved this morning. Patient was tested and he was COVID 19+. In the emergency department patient patient's labs and vitals and chest x-ray were all within normal limits except a white count of 12,000. [facility] stated they could not take him back because they did not have a room for him since he was COVID positive. Patient stated our emergency department overnight and is requested to be admitted and for observation per the [facility] department. - Related Data Allergies/Adverse Reactions: Allergies Allergy/AdvReac Type Severity Reaction Status Date / Time No Known Allergies Allergy Verified 02/25/20 19:39 Home Medications: Home Meds Mirtazapine [Remeron] 15 mg PO BEDTIME #30 tablet 09/11/19 [Rx] hydroCHLOROthiazide [Hydrochlorothiazide] 12.5 mg PO DAILY #20 cap 09/11/19 [Rx] Gabapentin [Neurontin] 100 mg PO TIDMEALS #60 capsule 09/13/19 [Rx] Gabapentin [Neurontin] 300 mg PO BEDTIME #20 cap 09/13/19 [Rx] Magnesium Oxide 400 mg PO DAILY #5 tablet 09/13/19 [Rx] Acetaminophen [Tylenol] 650 mg PO Q4HR PRN 02/25/20 [History] Hydrocortisone 0.5%. 1 applic TOP QID PRN 02/25/20 [History] Melatonin 5 mg PO BEDTIME 02/25/20 [History] Vit No.129/Iron/FA [ One Daily Tablet] 1 tab PO DAILY 02/25/20 [History] Tamsulosin [Flomax] 0.4 mg PO ACDINNER 02/25/20 [History] Vit A/Vit C/Vit E/Zinc/Copper [Preservision Areds Softgel] 1 tab PO BID 02/25/20 [History] polyethylene glycoL 3350 [MiraLAX] 17 g PO DAILY 02/25/20 [History] B Complex W-C No.20/Folic Acid [Mynephrocaps Softgel] 1 mg PO DAILY 02/26/20 [History] Sennosides/Docusate Sodium [Senna-Plus Tablet] 8.6 mg PO DAILY 02/26/20 [History] Past Medical History - Past Health History Medical/Surgical History: Denies Medical/Surgical History HEENT History: Reports: Impaired Vision Cardiovascular History: Reports: None, Hypertension Psychiatric History: Reports: Anxiety, Depression, Other (See Below) Other Psychiatric History: depressed as to how he lives and can't take care of self; drinks for escape; - Infectious Disease History Infectious Disease History: Reports: Novel Coronavirus - Past Surgical History HEENT Surgical History: Reports: Other (See Below) Social & Family History - Family History Family Medical History: Noncontributory - Tobacco Use Smoking Status *Q: Former Smoker Years of Tobacco use: 60 Packs/Tins Daily: 1 Used Tobacco, but Quit: Yes Month/Year Tobacco Last Used: 06/2017 Second Hand Smoke Exposure: No - Caffeine Use Caffeine Use: Reports: None - Recreational Drug Use Recreational Drug Use: No H&P Review of Systems - Review of Systems: Review Of Systems: Comprehensive ROS is negative, except as noted in HPI. Exam - Exam Exam: See Below - Vital Signs Vital Signs: Last Vital Signs Temp 99.3 F 02/26/20 20:07 Pulse 50 L 02/26/20 20:07 Resp 20 02/26/20 20:07 BP 115/84 02/26/20 20:07 Pulse Ox 99 02/26/20 20:07 Weight: 88.451 kg - Exam Quality Assessment: No: Supplemental Oxygen General: Alert, Oriented HEENT: Conjunctiva Clear, Mucosa Moist & [place], Normal Nasal Septum Neck: Supple, Trachea Midline, 2 Lungs: Clear to Auscultation, Normal Respiratory Effort Cardiovascular: Regular Rate, Regular Rhythm GI/Abdominal Exam: Normal Bowel Sounds, Soft, Non-Tender, No Organomegaly, No Distention, No Abnormal Bruit Extremities: Normal Inspection, Normal Range of Motion, Non-Tender, No Pedal Edema, Normal Capillary Refill Skin: Warm, Dry, Intact Neuro Extensive - Mental Status: Alert, Oriented x3, Normal Mood/Affect, Normal Cognition, Memory Intact Neuro Extensive - Motor, Sensory, Reflexes: CN II-XII Intact Psychiatric: Alert, Normal Affect, Normal Mood - Patient Data Lab Results Last 24 hrs: Laboratory Results - last 24 hr 02/25/20 02/25/20 02/25/20 Range/Units 20:44 20:44 20:45 WBC 12.13 H (4.23-9.07) K/mm3 RBC 4.44 L (4.63-6.08) M/mm3 Hgb 14.0 (13.7-17.5) gm/dl Hct 41.6 (40.1-51.0) % MCV 93.7 H D (79.0-92.2) fl MCH 31.5 (25.7-32.2) pg MCHC 33.7 (32.2-35.5) g/dl RDW Std Deviation 46.3 H (35.1-43.9) fL Plt Count 227 D (163-337) K/mm3 MPV 9.4 (9.4-12.3) fl Neut % (Auto) 59.7 (34.0-67.9) % Lymph % (Auto) 29.3 (21.8-53.1) % [place] % (Auto) 9.5 (5.3-12.2) % Eos % (Auto) 1.0 (0.8-7.0) Baso % (Auto) 0.2 (0.1-1.2) % Neut # (Auto) 7.24 H (1.78-5.38) K/mm3 Lymph # (Auto) 3.55 (1.32-3.57) K/mm3 [place] # (Auto) 1.15 H (0.30-0.82) K/mm3 Eos # (Auto) 0.12 (0.04-0.54) K/mm3 Baso # (Auto) 0.03 (0.01-0.08) K/mm3 Manual Slide Review Abnormal smear Sodium 137 (136-145) mEq/L Potassium 3.7 (3.5-5.1) mEq/L Chloride 98 (98-107) mEq/L Carbon Dioxide 31 (21-32) mEq/L Anion Gap 11.7 (5-15) BUN 8 (7-18) mg/dL Creatinine 1.4 H (0.7-1.3) mg/dL Est Cr Clr Drug Dosing 46.96 mL/min Estimated GFR (MDRD) 49 (>60) mL/min BUN/Creatinine Ratio 5.7 L (14-18) Glucose 114 (83-115) mg/dL Calcium 9.3 (8.5-10.1) mg/dL Total Bilirubin 0.6 (0.2-1.0) mg/dL AST 17 (15-37) U/L ALT 24 (16-63) U/L Alkaline Phosphatase 83 (46-116) U/L Total Protein 6.9 (6.4-8.2) g/dl Albumin 3.6 (3.4-5.0) g/dl Globulin 3.3 gm/dL Albumin/Globulin Ratio 1.1 (1-2) COVID-19 (YARELIS) Positive H (NEGATIVE) Result Diagrams: 02/25/20 20:44 02/25/20 20:44 Sepsis Event Note - Evaluation Sepsis Screening Result: No Definite Risk - Focused Exam Vital Signs: Vital Signs Temp Temp Pulse Pulse Resp BP BP 02/26/20 20:07 99.3 F 50 L 20 115/84 02/26/20 18:33 98.3 F 55 L 16 122/85 02/26/20 18:20 98.3 F 50 L 16 122/85 02/26/20 15:50 98.8 F 60 16 125/55 L 02/26/20 14:15 99.2 F 60 16 143/66 H Pulse Ox 02/26/20 20:07 99 02/26/20 18:33 96 02/26/20 18:20 96 02/26/20 15:50 92 L 02/26/20 14:15 98 - Problem List (1) COVID-19 SNOMED Code(s): 725439662 ICD Code: U07.1 - COVID-19 Status: Acute Current Visit: Yes Problem List Initiated/Reviewed/Updated: Yes Orders Last 24hrs: Active Orders 24 hr Category Date Time Status Patient Status [ADT] Routine ADT 02/26/20 14:36 Active Antiembolic Devices [RC] PER UNIT ROUTINE Care 02/26/20 20:38 Ordered Oxygen Therapy [RC] PRN Care 02/26/20 20:36 Ordered Up ad Josee [RC] ASDIRECTED Care 02/26/20 20:36 Ordered VTE/DVT Education [RC] PER UNIT ROUTINE Care 02/26/20 20:36 Ordered Vital Signs [RC] Q4H Care 02/26/20 20:36 Ordered Regular Diet [DIET] Diet 02/26/20 Breakfast Active Acetaminophen [TylenoL] Med 02/25/20 22:34 Active 650 mg PO Q6H PRN Gabapentin [Neurontin] Med 02/27/20 07:00 Ordered 100 mg PO TIDMEALS Gabapentin [Neurontin] Med 02/26/20 21:00 Ordered 300 mg PO BEDTIME Magnesium Oxide Med 02/27/20 09:00 Ordered 400 mg PO DAILY Melatonin Med 02/25/20 22:47 Active 6 mg PO BEDTIME PRN Mirtazapine [Remeron] Med 02/26/20 21:00 Ordered 15 mg PO BEDTIME Tamsulosin [Flomax] Med 02/27/20 16:00 Ordered 0.4 mg PO ACDINNER hydroCHLOROthiazide Med 02/27/20 09:00 Ordered 12.5 mg PO DAILY Antiembolic Hose [OM.PC] Per Unit Routine Oth 02/26/20 20:37 Ordered Resuscitation Status Routine Resus Stat 02/26/20 20:36 Ordered Medication Orders Acetaminophen (Tylenol) 650 mg PO Q6H PRN PRN Reason: Fever Last Admin: 02/26/20 14:13 Dose: 650 mg Documented by: Admin: 02/26/20 06:52 Dose: 650 mg Documented by: Admin: 02/25/20 22:56 Dose: 650 mg Documented by: LINDA Gabapentin (Neurontin) 100 mg PO TIDMEALS HAILEE Gabapentin (Neurontin) 300 mg PO BEDTIME HAILEE Hydrochlorothiazide (Hydrochlorothiazide) 12.5 mg PO DAILY HAILEE Magnesium Oxide (Magnesium Oxide) 400 mg PO DAILY HAILEE Melatonin (Melatonin) 6 mg PO BEDTIME PRN PRN Reason: Sleep Last Admin: 02/25/20 22:56 Dose: 6 mg Documented by: LINDA Mirtazapine (Remeron) 15 mg PO BEDTIME HAILEE Tamsulosin HCl (Flomax) 0.4 mg PO ACDINNER HAILEE Assessment/Plan Comment:: COVID-19 positive * Mildly symptomatic with low-grade fever and headache earlier. Both have resolved in the emergency department. * Chest x-ray was negative for any acute findings. * Oxygen saturations continue in the mid to upper 90s. * Patient is unable to return to [facility] because of being positive with COVID. Hopefully there will be a plan tomorrow on him returning since he is generally doing well. * Patient does have a mild leukocytosis of 12,000. * C-reactive protein, ferritin, CK, PT/PTT/fibrinogen, d-dimer, LDH, troponin were not done in the emergency department Acute on chronic renal insufficiency * Patient's GFR is down to 49. It appears from the records we have his normal GFR runs around 59 and above. * He is on low-dose hydrochlorothiazide as an outpatient Hypertension * Hydrochlorothiazide as outpatient Anxiety and depression * On Remeron * On gabapentin 3 mg at bedtime and 100 mg 3 times daily with meals Plan * Refer for observation. * Monitor labs in the morning including CBC, CMP, mag, phosphorus, C-reactive protein, ferritin, CK, PT/PTT/fibrinogen, d-dimer, LDH, troponin * Monitor O2 status and supplement if oxygen saturations dropped below 95% * Continue home meds except hydrochlorothiazide and some of his supplements. * Regular diet. * VTE prophylaxis tonight with Antiembolic hose * Plan discharge home if still stable tomorrow. - Mortality Measure Prognosis:: Good
[2020-02-26] MEDS ORDERED: Gabapentin 300 MG Cap PO SCH (21:00)
[2020-02-26] MEDS ORDERED: Mirtazapine 15 MG Tab PO SCH (21:00)
[2020-02-26] MEDS ORDERED: Mirtazapine 15 MG Tab PO ONE (21:30)
[2020-02-26] MEDS: Melatonin 3 MG Tab PO PRN (21:48)
[2020-02-26] MEDS: Gabapentin 300 MG Cap PO ONE (21:51)
[2020-02-27] MEDS ORDERED: Gabapentin 100 MG Cap PO SCH (07:00)
[2020-02-27] MEDS ORDERED: Magnesium Oxide 400 MG Tab PO SCH (09:00)
[2020-02-27] MEDS ORDERED: Hydrochlorothiazide 12.5 MG Cap PO SCH (09:00)
[2020-02-27] MEDS ORDERED: Hydrochlorothiazide 12.5 MG Cap PO ONE (11:00)
[2020-02-27] MEDS ORDERED: Gabapentin 100 MG Cap PO ONE (11:00)
--- NOTE | 2020-02-27 13:01 | PCM.DCSUM1 ---
Discharge Summary - Hospital Course HPI Initial Comments: Patient presented to the emergency department yesterday secondary to headache and reported fever 100.8 F. T-max since arriving in the emergency department was 100.4 this morning at 0700 hours. Patient states that he had a mild headache, 3 out of 10, that resolved this morning. Patient was tested and he was COVID 19+. In the emergency department patient patient's labs and vitals and chest x-ray were all within normal limits except a white count of 12,000. [facility] stated they could not take him back because they did not have a room for him since he was COVID positive. Patient stated our emergency department overnight and is requested to be admitted and for observation per the [facility] department. Diagnosis: Stroke: No - Discharge Data Discharge Date: 02/27/20 Discharge Disposition: Home, Self-Care 01 Condition: Good - Referral to Home Health Primary Care Physician: Asha Mitchell MACHINE TECHNICIAN - Discharge Diagnosis/Problem(s) (1) COVID-19 SNOMED Code(s): 329866622 ICD Code: U07.1 - COVID-19 Status: Acute Current Visit: Yes - Patient Summary/Data Hospital Course: Patient had an uneventful hospital stay. He did not need any oxygen supplementation. He will be returned back to [facility] today. - Patient Instructions Diet: Usual Diet as Tolerated Activity: As Tolerated Showering/Bathing: May Shower Other/Special Instructions: Follow up with your PCP as needed. If you develop shortness of breath return to the emergency room. - Discharge Plan *PRESCRIPTION DRUG MONITORING PROGRAM REVIEWED*: No *COPY OF PRESCRIPTION DRUG MONITORING REPORT IN PATIENT DONALD: No Home Medications: Home Meds Mirtazapine [Remeron] 15 mg PO BEDTIME #30 tablet 09/11/19 [Rx] hydroCHLOROthiazide [Hydrochlorothiazide] 12.5 mg PO DAILY #20 cap 09/11/19 [Rx] Gabapentin [Neurontin] 100 mg PO TIDMEALS #60 capsule 09/13/19 [Rx] Gabapentin [Neurontin] 300 mg PO BEDTIME #20 cap 09/13/19 [Rx] Magnesium Oxide 400 mg PO DAILY #5 tablet 09/13/19 [Rx] Acetaminophen [Tylenol] 650 mg PO Q4HR PRN 02/25/20 [History] Hydrocortisone 0.5%. 1 applic TOP QID PRN 02/25/20 [History] Melatonin 5 mg PO BEDTIME 02/25/20 [History] Vit No.129/Iron/FA [ One Daily Tablet] 1 tab PO DAILY 02/25/20 [History] Tamsulosin [Flomax] 0.4 mg PO ACDINNER 02/25/20 [History] Vit A/Vit C/Vit E/Zinc/Copper [Preservision Areds Softgel] 1 tab PO BID 02/25/20 [History] polyethylene glycoL 3350 [MiraLAX] 17 g PO DAILY 02/25/20 [History] B Complex W-C No.20/Folic Acid [Mynephrocaps Softgel] 1 mg PO DAILY 02/26/20 [History] Sennosides/Docusate Sodium [Senna-Plus Tablet] 8.6 mg PO DAILY 02/26/20 [History] Oxygen Therapy Mode: Room Air Patient Handouts: COVID-19: How to Protect Yourself and Others - [facility] Referrals: Asha Mitchell, MACHINE TECHNICIAN [Primary Care Provider] - (Please schedule a follow up with you PCP if needed. ) - Discharge Summary/Plan Comment DC Time >30 min.: No Discharge Summary/Plan Comment: Discharge back to [facility] Follow-up with primary care provider at normal intervals. - General Info Date of Service: 02/27/20 Admission Dx/Problem (Free Text: Admission Diagnosis/Problem Admission Diagnosis/Problem COVID-19 Functional Status: Reports: Pain Controlled - Review of Systems General: Reports: No Symptoms HEENT: Reports: No Symptoms Pulmonary: Reports: No Symptoms Cardiovascular: Reports: No Symptoms Gastrointestinal: Reports: No Symptoms Musculoskeletal: Reports: No Symptoms Skin: Reports: No Symptoms Neurological: Reports: No Symptoms Psychiatric: Reports: No Symptoms - Patient Data Vitals - Most Recent: Last Vital Signs Temp 99.0 F 02/27/20 07:56 Pulse 49 L 02/27/20 07:56 Resp 20 02/27/20 07:56 BP 133/61 02/27/20 07:56 Pulse Ox 93 L 02/27/20 07:56 Weight - Most Recent: 86.273 kg I&O - Last 24 hours: Intake & Output 02/26/20 02/27/20 02/27/20 22:59 06:59 14:59 Intake Total 475 300 Output Total 325 Balance 150 300 Lab Results - Last 24 hrs: Laboratory Results - last 24 hr 02/27/20 02/27/20 02/27/20 Range/Units 00:05 05:59 05:59 WBC 7.04 (4.23-9.07) K/mm3 RBC 4.48 L (4.63-6.08) M/mm3 Hgb 13.7 (13.7-17.5) gm/dl Hct 42.2 (40.1-51.0) % MCV 94.2 H (79.0-92.2) fl MCH 30.6 (25.7-32.2) pg MCHC 32.5 (32.2-35.5) g/dl RDW Std Deviation 48.2 H (35.1-43.9) fL Plt Count 194 (163-337) K/mm3 MPV 9.6 (9.4-12.3) fl Neut % (Auto) 27.0 L (34.0-67.9) % Lymph % (Auto) 55.3 H (21.8-53.1) % [place] % (Auto) 16.5 H (5.3-12.2) % Eos % (Auto) 0.7 L (0.8-7.0) Baso % (Auto) 0.4 (0.1-1.2) % Neut # (Auto) 1.90 (1.78-5.38) K/mm3 Lymph # (Auto) 3.89 H (1.32-3.57) K/mm3 [place] # (Auto) 1.16 H (0.30-0.82) K/mm3 Eos # (Auto) 0.05 (0.04-0.54) K/mm3 Baso # (Auto) 0.03 (0.01-0.08) K/mm3 Manual Slide Review Normal smear PT 10.4 (9.7-11.7) SECONDS INR 0.97 APTT 28 (22-31) SECONDS Fibrinogen 387 (187-446) mg/dL D-Dimer, Quantitative 0.41 (0.19-0.50) mg/L Sodium (136-145) mEq/L Potassium (3.5-5.1) mEq/L Chloride (98-107) mEq/L Carbon Dioxide (21-32) mEq/L Anion Gap (5-15) BUN (7-18) mg/dL Creatinine (0.7-1.3) mg/dL Est Cr Clr Drug Dosing mL/min Estimated GFR (MDRD) (>60) mL/min BUN/Creatinine Ratio (14-18) Glucose (83-115) mg/dL Calcium (8.5-10.1) mg/dL Magnesium (1.8-2.4) mg/dl Ferritin (26-388) ng/ml Total Bilirubin (0.2-1.0) mg/dL AST (15-37) U/L ALT (16-63) U/L Alkaline Phosphatase (46-116) U/L Troponin I (0.00-0.056) ng/mL C-Reactive Protein (<1.0) mg/dL Total Protein (6.4-8.2) g/dl Albumin (3.4-5.0) g/dl Globulin gm/dL Albumin/Globulin Ratio (1-2) MRSA (PCR) Negative 02/27/20 02/27/20 Range/Units 05:59 05:59 WBC (4.23-9.07) K/mm3 RBC (4.63-6.08) M/mm3 Hgb (13.7-17.5) gm/dl Hct (40.1-51.0) % MCV (79.0-92.2) fl MCH (25.7-32.2) pg MCHC (32.2-35.5) g/dl RDW Std Deviation (35.1-43.9) fL Plt Count (163-337) K/mm3 MPV (9.4-12.3) fl Neut % (Auto) (34.0-67.9) % Lymph % (Auto) (21.8-53.1) % [place] % (Auto) (5.3-12.2) % Eos % (Auto) (0.8-7.0) Baso % (Auto) (0.1-1.2) % Neut # (Auto) (1.78-5.38) K/mm3 Lymph # (Auto) (1.32-3.57) K/mm3 [place] # (Auto) (0.30-0.82) K/mm3 Eos # (Auto) (0.04-0.54) K/mm3 Baso # (Auto) (0.01-0.08) K/mm3 Manual Slide Review PT (9.7-11.7) SECONDS INR APTT (22-31) SECONDS Fibrinogen (187-446) mg/dL D-Dimer, Quantitative (0.19-0.50) mg/L Sodium 139 (136-145) mEq/L Potassium 3.8 (3.5-5.1) mEq/L Chloride 103 (98-107) mEq/L Carbon Dioxide 28 (21-32) mEq/L Anion Gap 11.8 (5-15) BUN 14 (7-18) mg/dL Creatinine 1.2 (0.7-1.3) mg/dL Est Cr Clr Drug Dosing 54.79 mL/min Estimated GFR (MDRD) 58 (>60) mL/min BUN/Creatinine Ratio 11.7 L (14-18) Glucose 104 (83-115) mg/dL Calcium 8.6 (8.5-10.1) mg/dL Magnesium 2.1 (1.8-2.4) mg/dl Ferritin 270 (26-388) ng/ml Total Bilirubin 0.4 (0.2-1.0) mg/dL AST 31 (15-37) U/L ALT 28 (16-63) U/L Alkaline Phosphatase 71 (46-116) U/L Troponin I < 0.017 (0.00-0.056) ng/mL C-Reactive Protein 5.1 H* (<1.0) mg/dL Total Protein 6.1 L (6.4-8.2) g/dl Albumin 3.1 L (3.4-5.0) g/dl Globulin 3.0 gm/dL Albumin/Globulin Ratio 1.0 (1-2) MRSA (PCR) Med Orders - Current: Current Medications Acetaminophen (Tylenol) 650 mg PO Q6H PRN PRN Reason: Fever Last Admin: 02/26/20 21:49 Dose: 650 mg Documented by: Gabapentin (Neurontin) 100 mg PO TIDMEALS HAILEE Gabapentin (Neurontin) 300 mg PO BEDTIME HAILEE Hydrochlorothiazide (Hydrochlorothiazide) 12.5 mg PO DAILY HAILEE Magnesium Oxide (Magnesium Oxide) 400 mg PO DAILY HAILEE Last Admin: 02/27/20 10:35 Dose: 400 mg Documented by: Melatonin (Melatonin) 6 mg PO BEDTIME PRN PRN Reason: Sleep Last Admin: 02/26/20 21:48 Dose: 6 mg Documented by: Mirtazapine (Remeron) 15 mg PO BEDTIME HAILEE Tamsulosin HCl (Flomax) 0.4 mg PO ACDINNER HAILEE Discontinued Medications Acetaminophen (Tylenol) 650 mg PO Q4HR PRN PRN Reason: Pain Gabapentin (Neurontin) 300 mg PO ONETIME ONE Stop: 02/25/20 22:34 Last Admin: 02/25/20 22:56 Dose: 300 mg Documented by: Gabapentin (Neurontin) 300 mg PO BEDTIME ONE Stop: 02/26/20 21:31 Last Admin: 02/26/20 21:51 Dose: 300 mg Documented by: Gabapentin (Neurontin) 100 mg PO ONETIME ONE Stop: 02/27/20 11:01 Last Admin: 02/27/20 11:51 Dose: 100 mg Documented by: Hydrochlorothiazide (Hydrochlorothiazide) 12.5 mg PO ONETIME ONE Stop: 02/27/20 11:01 Last Admin: 02/27/20 11:52 Dose: 12.5 mg Documented by: Mirtazapine (Remeron) 15 mg PO ONETIME ONE Stop: 02/25/20 22:34 Last Admin: 02/25/20 22:56 Dose: 15 mg Documented by: Mirtazapine (Remeron) 15 mg PO BEDTIME ONE Stop: 02/26/20 21:31 Last Admin: 02/26/20 21:52 Dose: 15 mg Documented by: - Exam Quality Assessment: Denies: Supplemental Oxygen General: Reports: Alert, Oriented HEENT: Reports: Pupils Equal, Mucous Membr. Moist/Show Low Neck: Reports: Supple Lungs: Reports: Clear to Auscultation, Normal Respiratory Effort Cardiovascular: Reports: Regular Rate, Regular Rhythm GI/Abdominal Exam: Normal Bowel Sounds, Soft, Non-Tender, No Organomegaly, No Distention Extremities: Normal Inspection, Normal Range of Motion, Non-Tender, No Pedal Edema, Normal Capillary Refill Psy/Mental Status: Reports: Alert, Normal Affect, Normal Mood
[2020-02-27 13:29] VITALS: BP 158/90; PULSE 56
[2020-02-27] MEDS ORDERED: Tamsulosin 0.4 MG Cap.ER PO SCH (16:00)
== END 2020-02-27 15:06 | disposition home or self-care (01) ==
LOC: JD.ED 19:33 → JD.MS 02-26 14:36
PROVIDERS: ADMIT Family Medicine; ATTEND Family Medicine
DX: U07.1 COVID-19 (principal); F41.9 Anxiety disorder, unspecified; I12.9 Hypertensive chronic kidney disease with stage 1 through stage 4 chronic kidney disease, or unspecified chronic kidney disease; N18.9 Chronic kidney disease, unspecified; F32.9 Major depressive disorder, single episode, unspecified; Z79.899 Other long term (current) drug therapy; Z87.891 Personal history of nicotine dependence
CPT/HCPCS: 36415; 71045; 71045-26; 80053; 82728; 83735; 84484; 85025; 85379; 85384; 85610; 85730; 86140; 87641; 99285-25; A9270-GY; G0378; U0002